=== PATIENT | male | born 1990 | race Caucasian/White ===

== ENCOUNTER 2017-06-19 09:44 | Inpatient (IN) | payer OTHER ==
[2017-06-19 11:24] VITALS: BMI 22.4
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
[2017-06-19] MEDS ORDERED: LOPERAMIDE HCL 2 MG CAPSULE PO PRN (13:01)
[2017-06-19] MEDS ORDERED: MAGNESIUM CITRATE 300 ML BOTTLE PO PRN (13:01)
[2017-06-19] MEDS ORDERED: MENTHOL/PHENOL 1 EACH UD MM PRN (13:01)
[2017-06-19] MEDS ORDERED: guaiFENesin/D-METHORPHAN HB 10 ML UNIT-DOSE CUPS PO PRN (13:01)
[2017-06-19] MEDS ORDERED: hydrOXYzine PAMOATE 25 MG CAPSULE (FP) PO PRN (13:01)
[2017-06-19] MEDS ORDERED: MAG HYDROX/AL HYDROX/SIMETH 30 ML UNIT-DOSE CUP PO PRN (13:01)
[2017-06-19] MEDS ORDERED: P-EPHED 60MG/TRIPROLIDI 2.5MG TABLET PO PRN (13:01)
[2017-06-19] MEDS ORDERED: ACETAMINOPHEN 325 MG TABLET (FP) PO PRN (13:01)
[2017-06-19] MEDS ORDERED: IBUPROFEN 400 MG TABLET (FP) PO PRN (13:01)
[2017-06-19] MEDS ORDERED: MAGNESIUM HYDROX 2400MG/30ML ORAL SUSPENSION 30 ML CUP PO PRN (13:01)
[2017-06-19] MEDS ORDERED: METHADONE HCL 10 MG TABLET (FOR DETOX USE ONLY) PO ONE ×2 (13:59→23:00)
[2017-06-19] MEDS: diazePAM 5 MG TABLET PO PRN ×2 (15:16→22:06)
[2017-06-19 19:47] LABS: MCH 29.6 pg (25.7-33.7); MCHC 33.8 g/dl (32.0-35.9); MEAN CELL VOLUME 87.7 fl (80-96); MEAN PLT VOLUME 10.2 fl (7.5-11.1); PLATELET COUNT 230 K/MM3 (134-434); RDW 12.8 % (11.9-15.9); WHITE BLOOD COUNT 7.4 K/mm3 (4.0-10.0)
[2017-06-19 20:12] LABS: ALBUMIN 4.1 g/dl (3.4-5.0); ANION GAP 7 (8-16); CALCIUM 9.4 mg/dL (8.5-10.1); CO2 31 mmol/L (21-32); GLUCOSE,RANDOM 98 mg/dL (74-106); SGPT/ALT 25 U/L (12-78)
[2017-06-19 20:15] LABS: ALK PHOS 90 U/L (45-117); BILIRUBIN,TOTAL 0.5 mg/dL (0.2-1.0); SGOT/AST 18 U/L (15-37); TOT PROT 7.8 g/dl (6.4-8.2)
[2017-06-19 21:40] LABS: SICKLE CELL SCREEN NEGATIVE (NEGATIVE)
[2017-06-19] MEDS: THIAMINE HCL 100 MG TABLET (FP) PO SCH (22:05)
[2017-06-19] MEDS: diphenhydrAMINE HCL 50 MG CAPSULE PO PRN (22:06)
[2017-06-19 23:26] LABS: HIV 1 & 2 AB NEGATIVE; HIV 1 AGp24 NEGATIVE
[2017-06-20 01:34] LABS: URINE APPEARANCE SLCLOUDY; URINE BILIRUBIN NEGATIVE (NEGATIVE); URINE BLOOD NEGATIVE (NEGATIVE); URINE COLOR YELLOW; URINE GLUCOSE (UA) NEGATIVE (NEGATIVE); URINE KETONE NEGATIVE (NEGATIVE); URINE LEUK ESTERASE NEGATIVE (NEGATIVE); URINE NITRITE NEGATIVE (NEGATIVE); URINE PROTEIN NEGATIVE (NEGATIVE); URINE UROBILINOGEN NEGATIVE mg/dL (0.2-1.0)
[2017-06-20] MEDS: diazePAM 5 MG TABLET PO PRN ×2 (06:00→22:35)
--- NOTE | 2017-06-20 09:53 | EKG ---
Test Reason : Blood Pressure : / mmHG Vent. Rate : 070 BPM Atrial Rate : 070 BPM P-R Int : 124 ms QRS Dur : 106 ms QT Int : 416 ms P-R-T Axes : 000 041 055 degrees QTc Int : 449 ms NORMAL SINUS RHYTHM INCOMPLETE RIGHT BUNDLE BRANCH BLOCK BORDERLINE ECG NO PREVIOUS ECGS AVAILABLE Confirmed by HERMELINDA WEIR, PATSY ([id number]) on 06/20/2017 9:53:15 AM Referred By: Confirmed By:PATSY SHEN MD
[2017-06-20] MEDS ORDERED: METHADONE HCL 10 MG TABLET (FOR DETOX USE ONLY) PO ONE (10:00)
[2017-06-20] MEDS: PRENATAL VITAMINS W/ FOLIC ACID TABLET (FP) PO SCH (10:22)
--- NOTE | 2017-06-20 13:17 | PN ---
BHS COWS - Scale Resting Pulse: 2= [place] 101-120 Sweatin= Chills/Flushing Restless Observation: 1= Difficult to Sit Still Pupil Size: 0= Normal to Room Light Bone or Joint Aches: 1= Mild Discomfort Runny Nose/ Eye Tearin= Nasal Congestion GI Upset > 30mins: 1= Stomach Cramp Tremor Observation of Outstretched Hands: 2= Slight Tremor Visible Yawning Observation: 1= 1-2x During Session Anxiety or Irritability: 2=Irritable/Anxious Goose Flesh Skin: 3=Piloerection COWS Score: 15 BHS Progress Note (SOAP) Subjective: Tremors, Stomach Cramping, Interrupted Sleep, Sweating. Objective: PT. A & O X 3, OBSERVED AMBULATING ON UNIT. NO ACUTE DISTRESS. PT. DENIES CHEST PAIN. 06/20/17 13:15 Vital Signs Temperature 97.5 F L 06/20/17 09:24 Pulse Rate 72 06/20/17 09:24 Respiratory Rate 16 06/20/17 09:24 Blood Pressure 126/91 06/20/17 09:24 O2 Sat by Pulse Oximetry (%) Laboratory Tests 06/19/17 06/19/17 06/19/17 12:00 12:00 12:00 WBC 7.4 RBC 4.97 Hgb 14.7 Hct 43.6 MCV 87.7 MCH 29.6 MCHC 33.8 RDW 12.8 Plt Count 230 MPV 10.2 Sickle Cell Screen Negative Sodium 140 Potassium 3.9 Chloride 102 Carbon Dioxide 31 Anion Gap 7 L BUN 8 Creatinine 1.0 Creat Clearance w eGFR > 60 Random Glucose 98 Calcium 9.4 Total Bilirubin 0.5 AST 18 ALT 25 Alkaline Phosphatase 90 Total Protein 7.8 Albumin 4.1 Urine Color Urine Appearance Urine pH Ur Specific [place] Urine Protein Urine Glucose (UA) Urine Ketones Urine Blood Urine Nitrite Urine Bilirubin Urine Urobilinogen RPR Titer HIV 1&2 Antibody Screen Negative HIV P24 Antigen Negative 06/19/17 06/19/17 12:00 23:10 WBC RBC Hgb Hct MCV MCH MCHC RDW Plt Count MPV Sickle Cell Screen Sodium Potassium Chloride Carbon Dioxide Anion Gap BUN Creatinine Creat Clearance w eGFR Random Glucose Calcium Total Bilirubin AST ALT Alkaline Phosphatase Total Protein Albumin Urine Color Yellow Urine Appearance Slcloudy Urine pH 5.0 Ur Specific [place] 1.025 Urine Protein Negative Urine Glucose (UA) Negative Urine Ketones Negative Urine Blood Negative Urine Nitrite Negative Urine Bilirubin Negative Urine Urobilinogen Negative RPR Titer Nonreactive HIV 1&2 Antibody Screen HIV P24 Antigen LABS NOTED. Assessment: 06/20/17 13:15 WITHDRAWAL SYMPTOMS. Plan: CONTINUED DETOX.
[2017-06-20] MEDS: diphenhydrAMINE HCL 50 MG CAPSULE PO PRN (22:35)
[2017-06-20] MEDS: THIAMINE HCL 100 MG TABLET (FP) PO SCH (22:35)
[2017-06-21] MEDS: diazePAM 5 MG TABLET PO PRN ×2 (05:37→22:42)
[2017-06-21] MEDS ORDERED: METHADONE HCL 5 MG TABLET (FOR DETOX USE ONLY) PO ONE (10:00)
[2017-06-21] MEDS: PRENATAL VITAMINS W/ FOLIC ACID TABLET (FP) PO SCH (10:34)
[2017-06-21] MEDS: OLANZapine 5 MG TABLET PO SCH (10:35)
--- NOTE | 2017-06-21 12:04 | PN ---
BHS COWS - Scale Resting Pulse: 1= [place] 81-100 Sweatin= Chills/Flushing Restless Observation: 3= Extraneous Movement Pupil Size: 2= Moderately Dilated Bone or Joint Aches: 4=Acute Joint/Muscle Pain Runny Nose/ Eye Tearin= Nasal Congestion GI Upset > 30mins: 1= Stomach Cramp Tremor Observation of Outstretched Hands: 1= Tremor [place], Not Seen Yawning Observation: 1= 1-2x During Session Anxiety or Irritability: 2=Irritable/Anxious Goose Flesh Skin: 0=Smooth Skin COWS Score: 17 BHS Progress Note (SOAP) Subjective: ANXIETY,SWEATS,INTERMITTENT SLEEP. Objective: 06/21/17 12:03 Vital Signs Temperature 98.4 F 06/21/17 09:21 Pulse Rate 87 06/21/17 09:21 Respiratory Rate 18 06/21/17 09:21 Blood Pressure 123/68 06/21/17 09:21 O2 Sat by Pulse Oximetry (%) Laboratory Last Values WBC 7.4 K/mm3 (4.0-10.0) 06/19/17 12:00 RBC 4.97 M/mm3 (4.00-5.60) 06/19/17 12:00 Hgb 14.7 GM/dL (11.7-16.9) 06/19/17 12:00 Hct 43.6 % (35.4-49) 06/19/17 12:00 MCV 87.7 fl (80-96) 06/19/17 12:00 MCH 29.6 pg (25.7-33.7) 06/19/17 12:00 MCHC 33.8 g/dl (32.0-35.9) 06/19/17 12:00 RDW 12.8 % (11.9-15.9) 06/19/17 12:00 Plt Count 230 K/MM3 (134-434) 06/19/17 12:00 MPV 10.2 fl (7.5-11.1) 06/19/17 12:00 Sickle Cell Screen Negative (NEGATIVE) 06/19/17 12:00 Sodium 140 mmol/L (136-145) 06/19/17 12:00 Potassium 3.9 mmol/L (3.5-5.1) 06/19/17 12:00 Chloride 102 mmol/L (98-107) 06/19/17 12:00 Carbon Dioxide 31 mmol/L (21-32) 06/19/17 12:00 Anion Gap 7 (8-16) L 06/19/17 12:00 BUN 8 mg/dL (7-18) 06/19/17 12:00 Creatinine 1.0 mg/dL (0.7-1.3) 06/19/17 12:00 Creat Clearance w eGFR > 60 (>60) 06/19/17 12:00 Random Glucose 98 mg/dL (74-106) 06/19/17 12:00 Calcium 9.4 mg/dL (8.5-10.1) 06/19/17 12:00 Total Bilirubin 0.5 mg/dL (0.2-1.0) 06/19/17 12:00 AST 18 U/L (15-37) 06/19/17 12:00 ALT 25 U/L (12-78) 06/19/17 12:00 Alkaline Phosphatase 90 U/L (45-117) 06/19/17 12:00 Total Protein 7.8 g/dl (6.4-8.2) 06/19/17 12:00 Albumin 4.1 g/dl (3.4-5.0) 06/19/17 12:00 Urine Color Yellow 06/19/17 23:10 Urine Appearance Slcloudy 06/19/17 23:10 Urine pH 5.0 (5.0-8.0) 06/19/17 23:10 Ur Specific [place] 1.025 (1.005-1.025) 06/19/17 23:10 Urine Protein Negative (NEGATIVE) 06/19/17 23:10 Urine Glucose (UA) Negative (NEGATIVE) 06/19/17 23:10 Urine Ketones Negative (NEGATIVE) 06/19/17 23:10 Urine Blood Negative (NEGATIVE) 06/19/17 23:10 Urine Nitrite Negative (NEGATIVE) 06/19/17 23:10 Urine Bilirubin Negative (NEGATIVE) 06/19/17 23:10 Urine Urobilinogen Negative mg/dL (0.2-1.0) 06/19/17 23:10 RPR Titer Nonreactive (NONREACTIVE) 06/19/17 12:00 HIV 1&2 Antibody Screen Negative 06/19/17 12:00 HIV P24 Antigen Negative 06/19/17 12:00 Assessment: 06/21/17 12:03 WITHDRAWAL SX Plan: CONTINUE DETOX
[2017-06-21] MEDS: THIAMINE HCL 100 MG TABLET (FP) PO SCH (22:42)
[2017-06-21] MEDS: diphenhydrAMINE HCL 50 MG CAPSULE PO PRN (22:42)
[2017-06-22] MEDS: diazePAM 5 MG TABLET PO PRN (06:01)
[2017-06-22] MEDS ORDERED: METHADONE HCL 5 MG TABLET (FOR DETOX USE ONLY) PO ONE (10:00)
[2017-06-22] MEDS: PRENATAL VITAMINS W/ FOLIC ACID TABLET (FP) PO SCH (10:51)
[2017-06-22] MEDS: OLANZapine 5 MG TABLET PO SCH (10:51)
--- NOTE | 2017-06-22 14:53 | PN ---
BHS Progress Note (SOAP) Subjective: Tremors. Objective: PT. A & O X 3, OBSERVED AMBULATING ON UNIT. NO ACUTE DISTRESS. 06/22/17 14:52 Vital Signs Temperature 97.7 F 06/22/17 13:19 Pulse Rate 64 06/22/17 13:19 Respiratory Rate 18 06/22/17 13:19 Blood Pressure 123/76 06/22/17 13:19 O2 Sat by Pulse Oximetry (%) Laboratory Tests 06/19/17 06/19/17 06/19/17 12:00 12:00 12:00 WBC 7.4 RBC 4.97 Hgb 14.7 Hct 43.6 MCV 87.7 MCH 29.6 MCHC 33.8 RDW 12.8 Plt Count 230 MPV 10.2 Sickle Cell Screen Negative Sodium 140 Potassium 3.9 Chloride 102 Carbon Dioxide 31 Anion Gap 7 L BUN 8 Creatinine 1.0 Creat Clearance w eGFR > 60 Random Glucose 98 Calcium 9.4 Total Bilirubin 0.5 AST 18 ALT 25 Alkaline Phosphatase 90 Total Protein 7.8 Albumin 4.1 Urine Color Urine Appearance Urine pH Ur Specific [place] Urine Protein Urine Glucose (UA) Urine Ketones Urine Blood Urine Nitrite Urine Bilirubin Urine Urobilinogen RPR Titer HIV 1&2 Antibody Screen Negative HIV P24 Antigen Negative 06/19/17 06/19/17 12:00 23:10 WBC RBC Hgb Hct MCV MCH MCHC RDW Plt Count MPV Sickle Cell Screen Sodium Potassium Chloride Carbon Dioxide Anion Gap BUN Creatinine Creat Clearance w eGFR Random Glucose Calcium Total Bilirubin AST ALT Alkaline Phosphatase Total Protein Albumin Urine Color Yellow Urine Appearance Slcloudy Urine pH 5.0 Ur Specific [place] 1.025 Urine Protein Negative Urine Glucose (UA) Negative Urine Ketones Negative Urine Blood Negative Urine Nitrite Negative Urine Bilirubin Negative Urine Urobilinogen Negative RPR Titer Nonreactive HIV 1&2 Antibody Screen HIV P24 Antigen LABS NOTED. Assessment: 06/22/17 14:52 WITHDRAWAL SYMPTOMS. Plan: CONTINUE DETOX.
[2017-06-22] MEDS: diphenhydrAMINE HCL 50 MG CAPSULE PO PRN (22:27)
[2017-06-22] MEDS: THIAMINE HCL 100 MG TABLET (FP) PO SCH (22:27)
[2017-06-23] MEDS ORDERED: METHADONE HCL 10 MG TABLET (FOR DETOX USE ONLY) PO ONE (10:00)
[2017-06-23] MEDS: PRENATAL VITAMINS W/ FOLIC ACID TABLET (FP) PO SCH (10:48)
[2017-06-23] MEDS: OLANZapine 5 MG TABLET PO SCH (10:49)
[2017-06-23 10:59] VITALS: BP 136/75; PULSE 95; TEMP 97.6
--- NOTE | 2017-06-23 22:03 | DS ---
[facility] Detox Discharge Summary Admission Date: 06/19/17 Discharge Date: 06/23/17 - History Present History: Cannabis Dependence, Cocaine Dependence, Opioid Dependence Additional Comments: PATIENT ELECTING TO GO HOME TO RETURN TO WORK. PATIENT ADVISED TO CONSIDER LOCAL OUTPATIENT 12-STEP / NA SUPPORT GROUP PROGRAMS FORM AFTERCARE. PATIENT WAS DISCHARGED FROM UNIT IN STABLE MEDICAL CONDITION. Pertinent Past History: History of Non-Hodgkins Lymphoma (Treated with Chemotherapy). - Physical Exam Results Vital Signs: Vital Signs Temperature 97.6 F 06/23/17 10:58 Pulse Rate 95 H 06/23/17 10:58 Respiratory Rate 20 06/23/17 10:58 Blood Pressure 136/75 06/23/17 10:58 O2 Sat by Pulse Oximetry (%) Pertinent Admission Physical Exam Findings: WITHDRAWAL SYMPTOMS. Laboratory Tests 06/19/17 06/19/17 06/19/17 12:00 12:00 12:00 WBC 7.4 RBC 4.97 Hgb 14.7 Hct 43.6 MCV 87.7 MCH 29.6 MCHC 33.8 RDW 12.8 Plt Count 230 MPV 10.2 Sickle Cell Screen Negative Sodium 140 Potassium 3.9 Chloride 102 Carbon Dioxide 31 Anion Gap 7 L BUN 8 Creatinine 1.0 Creat Clearance w eGFR > 60 Random Glucose 98 Calcium 9.4 Total Bilirubin 0.5 AST 18 ALT 25 Alkaline Phosphatase 90 Total Protein 7.8 Albumin 4.1 Urine Color Urine Appearance Urine pH Ur Specific [place] Urine Protein Urine Glucose (UA) Urine Ketones Urine Blood Urine Nitrite Urine Bilirubin Urine Urobilinogen RPR Titer HIV 1&2 Antibody Screen Negative HIV P24 Antigen Negative 06/19/17 06/19/17 12:00 23:10 WBC RBC Hgb Hct MCV MCH MCHC RDW Plt Count MPV Sickle Cell Screen Sodium Potassium Chloride Carbon Dioxide Anion Gap BUN Creatinine Creat Clearance w eGFR Random Glucose Calcium Total Bilirubin AST ALT Alkaline Phosphatase Total Protein Albumin Urine Color Yellow Urine Appearance Slcloudy Urine pH 5.0 Ur Specific [place] 1.025 Urine Protein Negative Urine Glucose (UA) Negative Urine Ketones Negative Urine Blood Negative Urine Nitrite Negative Urine Bilirubin Negative Urine Urobilinogen Negative RPR Titer Nonreactive HIV 1&2 Antibody Screen HIV P24 Antigen LABS NOTED. - Treatment Hospital Course: Detox Protocol Followed, Detoxed Safely, Responded well, Discharged Condition Good Patient has Accepted a Rehab Referral to: NO. PT. ADVISED TO FOLLOW-UP WITH LOCAL 12-STEP/NA PROGRAMS FOR AFTERCARE. - Medication Discharge Medications: Ambulatory Orders Olanzapine [Zyprexa -] 5 mg PO DAILY #30 tablet 06/21/17 - Diagnosis (1) Cannabis dependence, uncomplicated Status: Acute (2) Cocaine dependence, uncomplicated Status: Acute (3) Opioid dependence with withdrawal Status: Acute (4) History of Hodgkin's lymphoma Status: Chronic - AMA Did Patient Leave Against Medical Advice: No
[2017-06-24] MEDS ORDERED: METHADONE HCL 5 MG TABLET (FOR DETOX USE ONLY) PO ONE (06:00)
== END 2017-06-23 12:10 | disposition home or self-care (01) | DRG 773 ==
LOC: YASAS 09:44 → Y3N 13:48
PROVIDERS: ADMIT Internal Medicine; ATTEND Internal Medicine
PROC: HZ2ZZZZ Detoxification Services for Substance Abuse Treatment (ICD-10-PCS; principal; 2017-06-19)
DX: F11.23 Opioid dependence with withdrawal (principal); F14.20 Cocaine dependence, uncomplicated; F12.20 Cannabis dependence, uncomplicated; Z85.71 Personal history of Hodgkin lymphoma
CPT/HCPCS: 36415; 80053; 81003; 85027; 85660; 86593; 87389; 93005; 93010

== ENCOUNTER 2017-10-05 10:18 | Inpatient (IN) | payer OTHER ==
[2017-10-05 11:24] VITALS: BP 126/65; PULSE 70; TEMP 98.8; BMI 22.3
--- NOTE | 2017-10-05 14:45 | HP ---
COWS - Scale Resting Pulse: 0= [place] 80 or Below Sweatin= Chills/Flushing Restless Observation: 3= Extraneous Movement Pupil Size: 2= Moderately Dilated Bone or Joint Aches: 2= Severe Diffuse Aches Runny Nose/ Eye Tearin= Runny Nose/Eyes GI Upset > 30mins: 3= Vomiting/Diarrhea Tremor Observation: 2= Slight Tremor Visible Yawning Observation: 2= >3x During Session Anxiety or Irritability: 2=Irritable/Anxious Goose Flesh Skin: 0=Smooth Skin COWS Score: 19 Admission ROS S - HPI Chief Complaint: i need help to stop using heroin,cocaine,marijuana,ecstasy Allergies/Adverse Reactions: Allergies Allergy/AdvReac Type Severity Reaction Status Date / Time No Known Drug Allergies Allergy Verified 10/05/17 14:36 History of Present Illness: this 27 years old male with percocet,cocaine,marijuana,ecstasy,seeking detox, withdrawal symptom,last treatment 06/19/17 to 06/23/17 sj history of hodgekin's lymphoma treated in 2010 on remission weight loss n significant period of sobriety - Ebola screening Have you traveled outside of the country in the last 21 days: No Have you had contact with anyone from an Ebola affected area: No Have you been sick,other than usual withdrawal symptoms: No - Review of Systems Constitutional: Loss of Appetite, Malaise, Night Sweats, Changes in sleep, Weakness, Unintentional Wgt. Loss EENT: reports: Tearing, Nose Congestion Respiratory: reports: No Symptoms reported Cardiac: reports: No Symptoms Reported GI: reports: Diarrhea, Nausea, Vomiting, Abdominal cramping : reports: No Symptoms Reported Musculoskeletal: reports: Back Pain, Muscle Pain Integumentary: reports: Dryness Neuro: reports: Headache, Tremors Endocrine: reports: No Symptoms Reported Hematology: reports: No Symptoms Reported, Other (remission of hodgekinn;s lymphoma) Psychiatric: reports: No Sypmtoms Reported Other Systems: Reviewed and Negative Patient History - Patient Medical History Hx Anemia: No Hx Asthma: No Hx Chronic Obstructive Pulmonary Disease (COPD): No Hx Cancer: No Hx Cardiac Disorders: No Hx Hypertension: No Hx Hypercholesterolemia: No HX Cerebrovascular Accident: No Hx Seizures: No Hx Diabetes: No Hx Gastrointestinal Disorders: No Hx Genitourinary Disorders: No Hx Sexually Transmitted Disorders: No Hx Renal Disease (ESRD): No Hx Thyroid Disease: No Hx Human Immunodeficiency Virus (HIV): No (NEGATIVE HX in 916) Hx Hepatitis C: No Hx Depression: No Hx Suicide Attempt: No (DENIES) Hx Bipolar Disorder: No Hx Schizophrenia: No Other Medical History: no suicidal,no homicidal,histry of hodgekin's lymphoma on remission - Patient Surgical History Past Surgical History: No Hx Neurologic Surgery: No Hx Cataract Extraction: No Hx Cardiac Surgery: No Hx Lung Surgery: No Hx Breast Surgery: No Hx Breast Biopsy: No Hx Abdominal Surgery: No Hx Appendectomy: No Hx Cholecystectomy: No Hx Genitourinary Surgery: No Hx Orthopedic Surgery: No Anesthesia Reaction: No - PPD History Date: 06/21/17 - Smoking Cessation Smoking history: Never smoked Have you smoked in the past 12 months: No Hx Chewing Tobacco Use: No - Substance & Tx. History Hx Alcohol Use: No Hx Substance Use: Yes Substance Use Type: Cocaine, Opiates, Tranquilizers Hx Substance Use Treatment: Yes ([facility] 06/19/17 to 06/23/17) - Substances Abused Cocaine Route: Inhalation Frequency: Daily Amount used: 1/2 GRAM Age of first use: 26 Date of Last Use: 10/03/17 Marijuana/Hashish Route: Smoking Frequency: 1-2 times per week Amount used: 1/2 GRAM Age of first use: 24 Date of Last Use: 10/01/17 Ectasy Route: Oral Frequency: 1-3 times last 30 days Amount used: 1 PILL Age of first use: 26 Date of Last Use: 09/28/17 PERCOCET Route: Oral Frequency: Daily Amount used: 10 (10MG) PILLS Age of first use: 24 Date of Last Use: 10/05/17 Family Disease History - Family Disease History Family History: Denies Admission Physical Exam BHS - Vital Signs Vital Signs: Vital Signs - 24 hr 10/05/17 11:22 Temperature 98.8 F Pulse Rate 70 Respiratory 18 Rate Blood Pressure 126/65 - Physical General Appearance: Yes: Moderate Distress, Tremorous, Irritable, Sweating, Anxious HEENTM: Yes: Normal ENT Inspection, BRAIN, Pharynx Normal Respiratory: Yes: Lungs Clear, Normal Breath Sounds, No Respiratory Distress Neck: Yes: Within Normal Limits, Supple, Trachea in good position Breast: Yes: Within Normal Limits Cardiology: Yes: Within Normal Limits, Regular Rhythm, Regular Rate, S1, S2 Abdominal: Yes: Within Normal Limits, Normal Bowel Sounds, Non Tender, Flat, Soft Genitourinary: Yes: Within Normal Limits Back: Yes: Normal Inspection, Muscle Spasm Musculoskeletal: Yes: full range of Motion, Back pain, Joint Stiffness, Muscle Pain Extremities: Yes: Within Normal Limits, Normal Range of Motion, Tremors 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, Fully Oriented, Alert, Motor Strength 5/5 Integumentary: Yes: Dry Lymphatic: Yes: Within Normal Limits - Diagnostic (1) Cannabis dependence, uncomplicated Current Visit: No Status: Acute (2) Cocaine dependence, uncomplicated Current Visit: No Status: Acute (3) Opioid dependence with withdrawal Current Visit: No Status: Acute (4) History of Hodgkin's lymphoma Current Visit: No Status: Chronic Cleared for Admission [facility] - Detox or Rehab [facility] Level of Care: Medically Managed Detox Regimen/Protocol: Methadone [facility] Breath Alcohol Content Breath Alcohol Content: 0 Urine Drug Screen - Results Drug Screen Negative: No Urine Drug Screen Results: THC-Marijuana, TARSHA-Cocaine, OPI-Opiates, AMP- Amphetamines, MET-Methamphetamine, MDMA-Ecstasy, BZO-Benzodiazepines, MTD- Methadone, OXY-Oxycodone
[2017-10-05] MEDS ORDERED: guaiFENesin/D-METHORPHAN HB 10 ML UNIT-DOSE CUPS PO PRN (15:04)
[2017-10-05] MEDS ORDERED: P-EPHED 60MG/TRIPROLIDI 2.5MG TABLET PO PRN (15:04)
[2017-10-05] MEDS ORDERED: LOPERAMIDE HCL 2 MG CAPSULE PO PRN (15:04)
[2017-10-05] MEDS ORDERED: hydrOXYzine PAMOATE 25 MG CAPSULE (FP) PO PRN (15:04)
[2017-10-05] MEDS ORDERED: MENTHOL/PHENOL 1 EACH UD MM PRN (15:04)
[2017-10-05] MEDS ORDERED: ACETAMINOPHEN 325 MG TABLET (FP) PO PRN (15:04)
[2017-10-05] MEDS ORDERED: IBUPROFEN 400 MG TABLET (FP) PO PRN (15:04)
[2017-10-05] MEDS ORDERED: MAGNESIUM CITRATE 300 ML BOTTLE PO PRN (15:04)
[2017-10-05] MEDS ORDERED: MAGNESIUM HYDROX 2400MG/30ML ORAL SUSPENSION 30 ML CUP PO PRN (15:04)
[2017-10-05] MEDS ORDERED: diazePAM 5 MG TABLET PO PRN (15:04)
[2017-10-05] MEDS ORDERED: MAG HYDROX/AL HYDROX/SIMETH 30 ML UNIT-DOSE CUP PO PRN (15:04)
[2017-10-05] MEDS ORDERED: METHADONE HCL 10 MG TABLET (FOR DETOX USE ONLY) PO ONE ×2 (15:29→23:00)
[2017-10-05] MEDS ORDERED: THIAMINE HCL 100 MG TABLET (FP) PO SCH (22:00)
[2017-10-05 23:12] LABS: URINE APPEARANCE SLCLOUDY; URINE BILIRUBIN NEGATIVE (NEGATIVE); URINE BLOOD NEGATIVE (NEGATIVE); URINE COLOR DKYELLOW; URINE GLUCOSE (UA) NEGATIVE (NEGATIVE); URINE KETONE NEGATIVE (NEGATIVE); URINE LEUK ESTERASE NEGATIVE (NEGATIVE); URINE NITRITE NEGATIVE (NEGATIVE); URINE PROTEIN NEGATIVE (NEGATIVE); URINE UROBILINOGEN NEGATIVE mg/dL (0.2-1.0)
[2017-10-06] MEDS ORDERED: METHADONE HCL 10 MG TABLET (FOR DETOX USE ONLY) PO ONE (10:00)
[2017-10-06] MEDS ORDERED: PRENATAL VITAMINS W/ FOLIC ACID TABLET (FP) PO SCH (10:00)
[2017-10-06 10:41] LABS: HEMOGLOBIN 13.5 GM/dL (11.7-16.9); MEAN CELL VOLUME 87.9 fl (80-96); MEAN PLT VOLUME 10.4 fl (7.5-11.1); PLATELET COUNT 140 K/MM3 (134-434); RBC 4.67 M/mm3 (4.00-5.60); RDW 12.9 % (11.9-15.9); WHITE BLOOD COUNT 5.4 K/mm3 (4.0-10.0)
[2017-10-06 10:46] LABS: CHLORIDE 104 mmol/L (98-107); POTASSIUM 3.8 mmol/L (3.5-5.1); SODIUM 141 mmol/L (136-145)
[2017-10-06 10:54] LABS: ALBUMIN 3.8 g/dl (3.4-5.0); ALK PHOS 80 U/L (45-117); ANION GAP 5 (8-16); BILIRUBIN,TOTAL 0.3 mg/dL (0.2-1.0); BLOOD UREA NITROGEN 11 mg/dL (7-18); CALCIUM 8.3 mg/dL (8.5-10.1); CO2 32 mmol/L (21-32); CREATININE 0.9 mg/dL (0.7-1.3); GLUCOSE,RANDOM 85 mg/dL (74-106); SGOT/AST 18 U/L (15-37); SGPT/ALT 26 U/L (12-78)
[2017-10-07] MEDS ORDERED: METHADONE HCL 5 MG TABLET (FOR DETOX USE ONLY) PO ONE (10:00)
[2017-10-08] MEDS ORDERED: METHADONE HCL 5 MG TABLET (FOR DETOX USE ONLY) PO ONE (10:00)
[2017-10-09] MEDS ORDERED: METHADONE HCL 10 MG TABLET (FOR DETOX USE ONLY) PO ONE (10:00)
[2017-10-10] MEDS ORDERED: METHADONE HCL 5 MG TABLET (FOR DETOX USE ONLY) PO ONE (06:00)
== END 2017-10-06 06:39 | disposition home or self-care (01) | DRG 773 ==
LOC: YASAS 10:18 → Y3N 15:22
PROVIDERS: ADMIT Internal Medicine; ATTEND Internal Medicine
PROC: HZ2ZZZZ Detoxification Services for Substance Abuse Treatment (ICD-10-PCS; principal; 2017-10-05)
DX: F11.23 Opioid dependence with withdrawal (principal); F14.20 Cocaine dependence, uncomplicated; F12.20 Cannabis dependence, uncomplicated; Z85.72 Personal history of non-Hodgkin lymphomas
CPT/HCPCS: 36415; 80053; 81003; 85027; 86593

== ENCOUNTER 2017-10-07 08:30 | Inpatient (IN) | payer OTHER ==
--- NOTE | 2017-10-07 08:57 | HP ---
COWS - Scale Resting Pulse: 2= [place] 101-120 Sweatin= Chills/Flushing Restless Observation: 3= Extraneous Movement Pupil Size: 2= Moderately Dilated Bone or Joint Aches: 2= Severe Diffuse Aches Runny Nose/ Eye Tearin= Runny Nose/Eyes GI Upset > 30mins: 3= Vomiting/Diarrhea Tremor Observation: 2= Slight Tremor Visible Yawning Observation: 2= >3x During Session Anxiety or Irritability: 2=Irritable/Anxious Goose Flesh Skin: 0=Smooth Skin COWS Score: 21 Admission ROS BHS - HPI Chief Complaint: i need help to stop using percocet,cocaine and marijuana Allergies/Adverse Reactions: Allergies Allergy/AdvReac Type Severity Reaction Status Date / Time No Known Drug Allergies Allergy Verified 10/07/17 09:09 History of Present Illness: this 27 years old male with percocet,cocaine,marijuana dependence,seeking detox, withdrawal symptom,last detox [facility] 06/19/17 to 06/23/17 remission for hodgekin's lymphoma in 2010 treated with chemotherapy on remisssion no significant period of sobriety iddm 2017 - Ebola screening Have you traveled outside of the country in the last 21 days: No - Review of Systems Constitutional: Loss of Appetite, Malaise, Night Sweats, Changes in sleep, Weakness EENT: reports: Tearing, Nose Congestion Respiratory: reports: No Symptoms reported Cardiac: reports: Palpitations GI: reports: Nausea, Vomiting, Abdominal cramping : reports: No Symptoms Reported Musculoskeletal: reports: Back Pain, Joint Pain, Muscle Pain, Joint Stiffness Neuro: reports: Headache, Tremors Endocrine: reports: No Symptoms Reported Hematology: reports: No Symptoms Reported, Other (remission of hpdgekin's lymphoma) Psychiatric: reports: No Sypmtoms Reported Patient History - Patient Medical History Hx Anemia: No Hx Asthma: No Hx Chronic Obstructive Pulmonary Disease (COPD): No Hx Cancer: No Hx Cardiac Disorders: No Hx Hypertension: No Hx Hypercholesterolemia: No HX Cerebrovascular Accident: No Hx Seizures: No Hx Diabetes: No Hx Gastrointestinal Disorders: No Hx Genitourinary Disorders: No Hx Sexually Transmitted Disorders: No Hx Renal Disease (ESRD): No Hx Thyroid Disease: No Hx Human Immunodeficiency Virus (HIV): No (NEGATIVE HX in 06/10) Hx Hepatitis C: No Hx Depression: No Hx Suicide Attempt: No (DENIES) Hx Bipolar Disorder: No Hx Schizophrenia: No Other Medical History: no suicidal,no homicidal,remission of hodgekin's lymphoma - Patient Surgical History Past Surgical History: No Hx Neurologic Surgery: No Hx Cataract Extraction: No Hx Cardiac Surgery: No Hx Lung Surgery: No Hx Breast Surgery: No Hx Breast Biopsy: No Hx Abdominal Surgery: No Hx Appendectomy: No Hx Cholecystectomy: No Hx Genitourinary Surgery: No Hx Section: No Hx Orthopedic Surgery: No Other Surgical History: R hand tendon repair in 2007 Anesthesia Reaction: No - PPD History Previous Implant?: Yes Date: 06/21/17 Results: 0 mm PPD to be Administered?: No - Smoking Cessation Smoking history: Never smoked Have you smoked in the past 12 months: No Hx Chewing Tobacco Use: No - Substance & Tx. History Hx Alcohol Use: No Hx Substance Use: Yes Substance Use Type: Cocaine, Marijuana, Opiates Hx Substance Use Treatment: Yes ([facility] 06/19/17 to 06/23/17) - Substances Abused percocet Route: Oral Frequency: Daily Amount used: 10 of 10 mgs Age of first use: 24 Date of Last Use: 10/07/17 Cocaine Route: Inhalation Amount used: 1/2 gram Age of first use: 26 Date of Last Use: 10/05/17 Marijuana/Hashish Route: Smoking Frequency: 3-6 times per week Amount used: 1/2 gram Age of first use: 24 Date of Last Use: 10/05/17 Family Disease History - Family Disease History Family History: Denies Admission Physical Exam [facility] - Vital Signs Vital Signs: Vital Signs Temperature 99.4 F 10/07/17 08:55 Pulse Rate 101 H 10/07/17 08:55 Respiratory Rate 20 10/07/17 08:55 Blood Pressure 157/87 10/07/17 08:55 O2 Sat by Pulse Oximetry (%) - Physical General Appearance: Yes: Moderate Distress, Tremorous, Irritable, Sweating, Anxious HEENTM: Yes: Normal ENT Inspection, BRAIN, Pharynx Normal Respiratory: Yes: Within Normal Limits, Lungs Clear, No Respiratory Distress Neck: Yes: Within Normal Limits Breast: Yes: Within Normal Limits Cardiology: Yes: Within Normal Limits, Regular Rhythm, Regular Rate, S1, S2 Abdominal: Yes: Within Normal Limits, Normal Bowel Sounds, Non Tender, Soft Genitourinary: Yes: Within Normal Limits Back: Yes: Within Normal Limits, Muscle Spasm Musculoskeletal: Yes: full range of Motion, Back pain, Muscle Pain Extremities: Yes: Tremors 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, Fully Oriented, Alert, Motor Strength 5/5 Integumentary: Yes: Dry Lymphatic: Yes: Within Normal Limits - Diagnostic (1) Cannabis dependence, uncomplicated Current Visit: No Status: Acute (2) Cocaine dependence, uncomplicated Current Visit: No Status: Acute (3) Opioid dependence with withdrawal Current Visit: No Status: Acute (4) History of Hodgkin's lymphoma Current Visit: No Status: Chronic (5) IDDM (insulin dependent diabetes mellitus) Current Visit: Yes Status: Acute Cleared for Admission [facility] - Detox or Rehab [facility] Level of Care: Medically Managed Detox Regimen/Protocol: Methadone [facility] Breath Alcohol Content Breath Alcohol Content: 0
[2017-10-07 08:58] VITALS: BMI 20.6
[2017-10-07] MEDS ORDERED: guaiFENesin/D-METHORPHAN HB 10 ML UNIT-DOSE CUPS PO PRN (09:15)
[2017-10-07] MEDS ORDERED: IBUPROFEN 400 MG TABLET (FP) PO PRN (09:15)
[2017-10-07] MEDS ORDERED: P-EPHED 60MG/TRIPROLIDI 2.5MG TABLET PO PRN (09:15)
[2017-10-07] MEDS ORDERED: ACETAMINOPHEN 325 MG TABLET (FP) PO PRN (09:15)
[2017-10-07] MEDS ORDERED: MAGNESIUM HYDROX 2400MG/30ML ORAL SUSPENSION 30 ML CUP PO PRN (09:15)
[2017-10-07] MEDS ORDERED: MENTHOL/PHENOL 1 EACH UD MM PRN (09:15)
[2017-10-07] MEDS ORDERED: MAG HYDROX/AL HYDROX/SIMETH 30 ML UNIT-DOSE CUP PO PRN (09:15)
[2017-10-07] MEDS ORDERED: METHADONE HCL 10 MG TABLET (FOR DETOX USE ONLY) PO ONE ×3 (09:15→23:00)
[2017-10-07] MEDS ORDERED: LOPERAMIDE HCL 2 MG CAPSULE PO PRN (09:15)
[2017-10-07] MEDS ORDERED: MAGNESIUM CITRATE 300 ML BOTTLE PO PRN (09:15)
[2017-10-07] MEDS: PRENATAL VITAMINS W/ FOLIC ACID TABLET (FP) PO SCH (12:13)
[2017-10-07 16:33] LABS: URINE APPEARANCE SLCLOUDY; URINE BILIRUBIN NEGATIVE (NEGATIVE); URINE BLOOD NEGATIVE (NEGATIVE); URINE COLOR AMBER; URINE GLUCOSE (UA) NEGATIVE (NEGATIVE); URINE KETONE NEGATIVE (NEGATIVE); URINE LEUK ESTERASE NEGATIVE (NEGATIVE); URINE NITRITE NEGATIVE (NEGATIVE)
[2017-10-07 16:37] LABS: URINE PROTEIN 1+ (NEGATIVE)
[2017-10-07 16:45] LABS: EPI CELLS RARE /HPF (FEW); URINE MUCUS MODERATE
[2017-10-07] MEDS: diazePAM 5 MG TABLET PO PRN (22:36)
[2017-10-07] MEDS: THIAMINE HCL 100 MG TABLET (FP) PO SCH (22:36)
[2017-10-08 09:55] LABS: HEMATOCRIT 37.1 % (35.4-49); HEMOGLOBIN 12.4 GM/dL (11.7-16.9); MCH 28.8 pg (25.7-33.7); MCHC 33.4 g/dl (32.0-35.9); MEAN CELL VOLUME 86.3 fl (80-96); MEAN PLT VOLUME 9.8 fl (7.5-11.1); PLATELET COUNT 145 K/MM3 (134-434); RDW 12.6 % (11.9-15.9); WHITE BLOOD COUNT 5.2 K/mm3 (4.0-10.0)
[2017-10-08] MEDS ORDERED: METHADONE HCL 10 MG TABLET (FOR DETOX USE ONLY) PO ONE (10:00)
[2017-10-08 10:26] LABS: CHLORIDE 107 mmol/L (98-107); POTASSIUM 3.9 mmol/L (3.5-5.1); SODIUM 142 mmol/L (136-145)
[2017-10-08 10:35] LABS: BLOOD UREA NITROGEN 8 mg/dL (7-18); CO2 29 mmol/L (21-32); CREATININE 0.7 mg/dL (0.7-1.3); GLUCOSE,RANDOM 89 mg/dL (74-106)
[2017-10-08 10:36] LABS: ALBUMIN 3.3 g/dl (3.4-5.0); ALK PHOS 66 U/L (45-117); ANION GAP 6 (8-16); BILIRUBIN,TOTAL 0.4 mg/dL (0.2-1.0); CALCIUM 7.9 mg/dL (8.5-10.1); SGOT/AST 23 U/L (15-37); SGPT/ALT 28 U/L (12-78)
--- NOTE | 2017-10-08 10:39 | EKG ---
Test Reason : Blood Pressure : / mmHG Vent. Rate : 088 BPM Atrial Rate : 088 BPM P-R Int : 142 ms QRS Dur : 104 ms QT Int : 360 ms P-R-T Axes : 083 061 072 degrees QTc Int : 435 ms NORMAL SINUS RHYTHM WITH SINUS ARRHYTHMIA NORMAL ECG WHEN COMPARED WITH ECG OF 19-JUN-2017 15:22, INCOMPLETE RIGHT BUNDLE BRANCH BLOCK IS NO LONGER PRESENT Confirmed by DAGOBERTO GRIFFIN MD ([id number]) on 10/08/2017 10:39:42 AM Referred By: Confirmed By:DAGOBERTO GRIFFIN MD
[2017-10-08] MEDS: PRENATAL VITAMINS W/ FOLIC ACID TABLET (FP) PO SCH (11:14)
--- NOTE | 2017-10-08 12:03 | PN ---
BHS COWS - Scale Resting Pulse: 1= [place] 81-100 Sweatin= Chills/Flushing Restless Observation: 3= Extraneous Movement Pupil Size: 1= Pupils >than Normal Bone or Joint Aches: 2= Severe Diffuse Aches Runny Nose/ Eye Tearin= Runny Nose/Eyes GI Upset > 30mins: 2= Nausea/Diarrhea Tremor Observation of Outstretched Hands: 2= Slight Tremor Visible Yawning Observation: 1= 1-2x During Session Anxiety or Irritability: 2=Irritable/Anxious Goose Flesh Skin: 0=Smooth Skin COWS Score: 17 S Progress Note (SOAP) Subjective: ALERT,IRRITABLE,ANXIOUS,INTERRUPTED SLEEP,TREMOR,PAIN IN THE BODY AND BACK Objective: 10/08/17 12:00 Vital Signs Temperature 96 F L 10/08/17 11:46 Pulse Rate 76 10/08/17 11:46 Respiratory Rate 18 10/08/17 11:46 Blood Pressure 122/76 10/08/17 11:46 O2 Sat by Pulse Oximetry (%) EKG NSR NO CHEST PAIN,NO SOB,NO DIZZINESS Laboratory Last Values WBC 5.2 K/mm3 (4.0-10.0) 10/08/17 07:30 RBC 4.30 M/mm3 (4.00-5.60) 10/08/17 07:30 Hgb 12.4 GM/dL (11.7-16.9) 10/08/17 07:30 Hct 37.1 % (35.4-49) 10/08/17 07:30 MCV 86.3 fl (80-96) 10/08/17 07:30 MCH 28.8 pg (25.7-33.7) 10/08/17 07:30 MCHC 33.4 g/dl (32.0-35.9) 10/08/17 07:30 RDW 12.6 % (11.9-15.9) 10/08/17 07:30 Plt Count 145 K/MM3 (134-434) 10/08/17 07:30 MPV 9.8 fl (7.5-11.1) 10/08/17 07:30 Sodium 142 mmol/L (136-145) 10/08/17 07:30 Potassium 3.9 mmol/L (3.5-5.1) 10/08/17 07:30 Chloride 107 mmol/L (98-107) 10/08/17 07:30 Carbon Dioxide 29 mmol/L (21-32) 10/08/17 07:30 Anion Gap 6 (8-16) L 10/08/17 07:30 BUN 8 mg/dL (7-18) D 10/08/17 07:30 Creatinine 0.7 mg/dL (0.7-1.3) D 10/08/17 07:30 Creat Clearance w eGFR > 60 (>60) 10/08/17 07:30 POC Glucometer 102 UNITS (80-120) 10/08/17 06:12 Random Glucose 89 mg/dL (74-106) 10/08/17 07:30 Calcium 7.9 mg/dL (8.5-10.1) L 10/08/17 07:30 Total Bilirubin 0.4 mg/dL (0.2-1.0) D 10/08/17 07:30 AST 23 U/L (15-37) D 10/08/17 07:30 ALT 28 U/L (12-78) 10/08/17 07:30 Alkaline Phosphatase 66 U/L (45-117) 10/08/17 07:30 Total Protein 6.0 g/dl (6.4-8.2) L 10/08/17 07:30 Albumin 3.3 g/dl (3.4-5.0) L 10/08/17 07:30 Urine Color Maren 10/07/17 15:37 Urine Appearance Slcloudy 10/07/17 15:37 Urine pH 5.0 (5.0-8.0) 10/07/17 15:37 Ur Specific [place] 1.034 (1.001-1.035) 10/07/17 15:37 Urine Protein 1+ (NEGATIVE) H 10/07/17 15:37 Urine Glucose (UA) Negative (NEGATIVE) 10/07/17 15:37 Urine Ketones Negative (NEGATIVE) 10/07/17 15:37 Urine Blood Negative (NEGATIVE) 10/07/17 15:37 Urine Nitrite Negative (NEGATIVE) 10/07/17 15:37 Urine Bilirubin Negative (NEGATIVE) 10/07/17 15:37 Urine Urobilinogen 2.0 mg/dL (0.2-1.0) 10/07/17 15:37 Ur Leukocyte Esterase Negative (NEGATIVE) 10/07/17 15:37 Urine WBC (Auto) 1 /hpf (3-5) 10/07/17 15:37 Urine RBC (Auto) 4 /hpf (0-3) 10/07/17 15:37 Ur Epithelial Cells Rare /HPF (FEW) 10/07/17 15:37 Urine Mucus Moderate 10/07/17 15:37 Assessment: 10/08/17 12:02 WITHDRAWAL SYNDROME Plan: CONTINUE DETOX
[2017-10-08] MEDS: diazePAM 5 MG TABLET PO PRN ×2 (18:21→22:39)
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
[2017-10-08] MEDS: THIAMINE HCL 100 MG TABLET (FP) PO SCH (22:39)
[2017-10-09] MEDS ORDERED: METHADONE HCL 5 MG TABLET (FOR DETOX USE ONLY) PO ONE (10:00)
--- NOTE | 2017-10-09 10:56 | EKG ---
Test Reason : Blood Pressure : / mmHG Vent. Rate : 062 BPM Atrial Rate : 062 BPM P-R Int : 138 ms QRS Dur : 100 ms QT Int : 432 ms P-R-T Axes : 059 066 066 degrees QTc Int : 438 ms NORMAL SINUS RHYTHM INCOMPLETE RIGHT BUNDLE BRANCH BLOCK BORDERLINE ECG WHEN COMPARED WITH ECG OF 07-OCT-2017 11:41, T WAVE INVERSION NOW EVIDENT IN ANTERIOR LEADS Confirmed by MD Emigdio, Flavio ([id number]) on 10/09/2017 10:56:32 AM Referred By: Confirmed By:Flavio Beal MD
[2017-10-09] MEDS: PRENATAL VITAMINS W/ FOLIC ACID TABLET (FP) PO SCH (11:00)
--- NOTE | 2017-10-09 13:14 | PN ---
BHS COWS - Scale Resting Pulse: 0= ID 80 or Below Sweatin=Flushed/Facial Moisture Restless Observation: 1= Difficult to Sit Still Pupil Size: 0= Normal to Room Light Bone or Joint Aches: 2= Severe Diffuse Aches Runny Nose/ Eye Tearin= None GI Upset > 30mins: 1= Stomach Cramp Tremor Observation of Outstretched Hands: 2= Slight Tremor Visible Yawning Observation: 2= >3x During Session Anxiety or Irritability: 2=Irritable/Anxious Goose Flesh Skin: 3=Piloerection COWS Score: 15 BHS Progress Note (SOAP) Subjective: Anxious, chills and sweat, body aches, interrupted sleep Objective: 10/09/17 13:12 Vital Signs Temperature 97.2 F L 10/09/17 10:20 Pulse Rate 70 10/09/17 10:20 Respiratory Rate 18 10/09/17 10:20 Blood Pressure 130/84 10/09/17 10:20 O2 Sat by Pulse Oximetry (%) Laboratory Last Values WBC 5.2 K/mm3 (4.0-10.0) 10/08/17 07:30 RBC 4.30 M/mm3 (4.00-5.60) 10/08/17 07:30 Hgb 12.4 GM/dL (11.7-16.9) 10/08/17 07:30 Hct 37.1 % (35.4-49) 10/08/17 07:30 MCV 86.3 fl (80-96) 10/08/17 07:30 MCH 28.8 pg (25.7-33.7) 10/08/17 07:30 MCHC 33.4 g/dl (32.0-35.9) 10/08/17 07:30 RDW 12.6 % (11.9-15.9) 10/08/17 07:30 Plt Count 145 K/MM3 (134-434) 10/08/17 07:30 MPV 9.8 fl (7.5-11.1) 10/08/17 07:30 Sodium 142 mmol/L (136-145) 10/08/17 07:30 Potassium 3.9 mmol/L (3.5-5.1) 10/08/17 07:30 Chloride 107 mmol/L (98-107) 10/08/17 07:30 Carbon Dioxide 29 mmol/L (21-32) 10/08/17 07:30 Anion Gap 6 (8-16) L 10/08/17 07:30 BUN 8 mg/dL (7-18) D 10/08/17 07:30 Creatinine 0.7 mg/dL (0.7-1.3) D 10/08/17 07:30 Creat Clearance w eGFR > 60 (>60) 10/08/17 07:30 POC Glucometer 102 UNITS (80-120) 10/08/17 06:12 Random Glucose 89 mg/dL (74-106) 10/08/17 07:30 Calcium 7.9 mg/dL (8.5-10.1) L 10/08/17 07:30 Total Bilirubin 0.4 mg/dL (0.2-1.0) D 10/08/17 07:30 AST 23 U/L (15-37) D 10/08/17 07:30 ALT 28 U/L (12-78) 10/08/17 07:30 Alkaline Phosphatase 66 U/L (45-117) 10/08/17 07:30 Total Protein 6.0 g/dl (6.4-8.2) L 10/08/17 07:30 Albumin 3.3 g/dl (3.4-5.0) L 10/08/17 07:30 Urine Color Maren 10/07/17 15:37 Urine Appearance Slcloudy 10/07/17 15:37 Urine pH 5.0 (5.0-8.0) 10/07/17 15:37 Ur Specific [place] 1.034 (1.001-1.035) 10/07/17 15:37 Urine Protein 1+ (NEGATIVE) H 10/07/17 15:37 Urine Glucose (UA) Negative (NEGATIVE) 10/07/17 15:37 Urine Ketones Negative (NEGATIVE) 10/07/17 15:37 Urine Blood Negative (NEGATIVE) 10/07/17 15:37 Urine Nitrite Negative (NEGATIVE) 10/07/17 15:37 Urine Bilirubin Negative (NEGATIVE) 10/07/17 15:37 Urine Urobilinogen 2.0 mg/dL (0.2-1.0) 10/07/17 15:37 Ur Leukocyte Esterase Negative (NEGATIVE) 10/07/17 15:37 Urine WBC (Auto) 1 /hpf (3-5) 10/07/17 15:37 Urine RBC (Auto) 4 /hpf (0-3) 10/07/17 15:37 Ur Epithelial Cells Rare /HPF (FEW) 10/07/17 15:37 Urine Mucus Moderate 10/07/17 15:37 RPR Titer Nonreactive (NONREACTIVE) 10/08/17 07:30 Labs noted Assessment: 10/09/17 13:13 withdrawal symptoms Plan: Continue Detox Increase Fluids Continue to monitor
[2017-10-09] MEDS: diazePAM 5 MG TABLET PO PRN (20:11)
--- NOTE | 2017-10-09 21:58 | DS ---
[facility] Detox Discharge Summary Admission Date: 10/07/17 Discharge Date: 10/09/17 - History Present History: Opioid Dependence Pertinent Past History: PATIENT INSISTS TO LEAVE THE DETOX FACILITY REFUSES TO WAIT FACE TO FACE WITH THE PROVIDER - Physical Exam Results Vital Signs: Vital Signs Temperature 98.1 F 10/09/17 18:10 Pulse Rate 65 10/09/17 18:10 Respiratory Rate 18 10/09/17 18:10 Blood Pressure 102/58 10/09/17 18:10 O2 Sat by Pulse Oximetry (%) Pertinent Admission Physical Exam Findings: WITHDRAWAL SX Vital Signs Temperature 98.1 F 10/09/17 18:10 Pulse Rate 65 10/09/17 18:10 Respiratory Rate 18 10/09/17 18:10 Blood Pressure 102/58 10/09/17 18:10 O2 Sat by Pulse Oximetry (%) Laboratory Last Values WBC 5.2 K/mm3 (4.0-10.0) 10/08/17 07:30 RBC 4.30 M/mm3 (4.00-5.60) 10/08/17 07:30 Hgb 12.4 GM/dL (11.7-16.9) 10/08/17 07:30 Hct 37.1 % (35.4-49) 10/08/17 07:30 MCV 86.3 fl (80-96) 10/08/17 07:30 MCH 28.8 pg (25.7-33.7) 10/08/17 07:30 MCHC 33.4 g/dl (32.0-35.9) 10/08/17 07:30 RDW 12.6 % (11.9-15.9) 10/08/17 07:30 Plt Count 145 K/MM3 (134-434) 10/08/17 07:30 MPV 9.8 fl (7.5-11.1) 10/08/17 07:30 Sodium 142 mmol/L (136-145) 10/08/17 07:30 Potassium 3.9 mmol/L (3.5-5.1) 10/08/17 07:30 Chloride 107 mmol/L (98-107) 10/08/17 07:30 Carbon Dioxide 29 mmol/L (21-32) 10/08/17 07:30 Anion Gap 6 (8-16) L 10/08/17 07:30 BUN 8 mg/dL (7-18) D 10/08/17 07:30 Creatinine 0.7 mg/dL (0.7-1.3) D 10/08/17 07:30 Creat Clearance w eGFR > 60 (>60) 10/08/17 07:30 POC Glucometer 102 UNITS (80-120) 10/08/17 06:12 Random Glucose 89 mg/dL (74-106) 10/08/17 07:30 Calcium 7.9 mg/dL (8.5-10.1) L 10/08/17 07:30 Total Bilirubin 0.4 mg/dL (0.2-1.0) D 10/08/17 07:30 AST 23 U/L (15-37) D 10/08/17 07:30 ALT 28 U/L (12-78) 10/08/17 07:30 Alkaline Phosphatase 66 U/L (45-117) 10/08/17 07:30 Total Protein 6.0 g/dl (6.4-8.2) L 10/08/17 07:30 Albumin 3.3 g/dl (3.4-5.0) L 10/08/17 07:30 Urine Color Maren 10/07/17 15:37 Urine Appearance Slcloudy 10/07/17 15:37 Urine pH 5.0 (5.0-8.0) 10/07/17 15:37 Ur Specific [place] 1.034 (1.001-1.035) 10/07/17 15:37 Urine Protein 1+ (NEGATIVE) H 10/07/17 15:37 Urine Glucose (UA) Negative (NEGATIVE) 10/07/17 15:37 Urine Ketones Negative (NEGATIVE) 10/07/17 15:37 Urine Blood Negative (NEGATIVE) 10/07/17 15:37 Urine Nitrite Negative (NEGATIVE) 10/07/17 15:37 Urine Bilirubin Negative (NEGATIVE) 10/07/17 15:37 Urine Urobilinogen 2.0 mg/dL (0.2-1.0) 10/07/17 15:37 Ur Leukocyte Esterase Negative (NEGATIVE) 10/07/17 15:37 Urine WBC (Auto) 1 /hpf (3-5) 10/07/17 15:37 Urine RBC (Auto) 4 /hpf (0-3) 10/07/17 15:37 Ur Epithelial Cells Rare /HPF (FEW) 10/07/17 15:37 Urine Mucus Moderate 10/07/17 15:37 RPR Titer Nonreactive (NONREACTIVE) 10/08/17 07:30 LAB NOTED - Treatment Hospital Course: Detox Protocol Followed, Responded well - Medication Discharge Medications: Ambulatory Orders NK [No Known Home Medication] 10/05/17 - AMA Did Patient Leave Against Medical Advice: Yes
[2017-10-09 23:06] VITALS: BP 129/79; PULSE 75; TEMP 98.6
[2017-10-10] MEDS ORDERED: METHADONE HCL 5 MG TABLET (FOR DETOX USE ONLY) PO ONE (10:00)
[2017-10-11] MEDS ORDERED: METHADONE HCL 10 MG TABLET (FOR DETOX USE ONLY) PO ONE (10:00)
[2017-10-12] MEDS ORDERED: METHADONE HCL 5 MG TABLET (FOR DETOX USE ONLY) PO ONE (06:00)
== END 2017-10-09 22:00 | disposition left against medical advice (07) | DRG 770 ==
LOC: YASAS 08:30 → Y6N 10:17
PROVIDERS: ADMIT Internal Medicine; ATTEND Internal Medicine
PROC: HZ2ZZZZ Detoxification Services for Substance Abuse Treatment (ICD-10-PCS; principal; 2017-10-07)
DX: F11.23 Opioid dependence with withdrawal (principal); F14.20 Cocaine dependence, uncomplicated; F12.20 Cannabis dependence, uncomplicated; E11.9 Type 2 diabetes mellitus without complications; Z79.4 Long term (current) use of insulin; Z85.71 Personal history of Hodgkin lymphoma; Y04.0XXA Assault by unarmed brawl or fight, initial encounter
CPT/HCPCS: 36415; 80053; 81003; 81015; 82962; 85027; 86593; 93005; 93010

== ENCOUNTER 2017-10-24 09:40 | Inpatient (IN) | payer OTHER ==
[2017-10-24 10:14] VITALS: BMI 20.9
--- NOTE | 2017-10-24 12:14 | HP ---
COWS - Scale Resting Pulse: 2= [place] 101-120 Sweatin= Chills/Flushing Restless Observation: 1= Difficult to Sit Still Pupil Size: 1= Pupils >than Normal Bone or Joint Aches: 1= Mild Discomfort Runny Nose/ Eye Tearin= Nasal Congestion GI Upset > 30mins: 2= Nausea/Diarrhea Tremor Observation: 1= Tremor [place], Not Seen Yawning Observation: 1= 1-2x During Session Anxiety or Irritability: 2=Irritable/Anxious Goose Flesh Skin: 3=Piloerection COWS Score: 16 Admission ROS S - [facility] Chief Complaint: opioid withdrawal sx Allergies/Adverse Reactions: Allergies Allergy/AdvReac Type Severity Reaction Status Date / Time No Known Drug Allergies Allergy Verified 10/24/17 10:35 History of Present Illness: 27 yo m with h/o chronic opioid dependence, multiple admissions for detox at [facility] did not complete last detox this month c/o heorin withdrawal sx when he does not use, denies all other illicit drug use other then sniffing cocaine occasionally. no h/o seizures, no si at this time no DTs, denies alcohol ue Exam Limitations: No Limitations - Ebola screening Have you traveled outside of the country in the last 21 days: No Have you had contact with anyone from an Ebola affected area: No Have you been sick,other than usual withdrawal symptoms: No Do you have a fever: No - Review of Systems Constitutional: Chills, Diaphoresis, Night Sweats, Changes in sleep, Weight Stable EENT: reports: Tearing, Nose Congestion Respiratory: reports: No Symptoms reported Cardiac: reports: No Symptoms Reported GI: reports: Diarrhea, Nausea, Poor Appetite, Poor Fluid Intake, Indigestion, Abdominal cramping : reports: No Symptoms Reported Musculoskeletal: reports: Back Pain, Muscle Pain (withdrwal sx) Integumentary: reports: Flushing, Sweating Neuro: reports: Tremors Endocrine: reports: Increased Thirst Hematology: reports: No Symptoms Reported Psychiatric: reports: Judgement Intact, Mood/Affect Appropiate, Orientated x3, Anxious, Depressed Other Systems: Reviewed and Negative Patient History - Patient Medical History Hx Anemia: No Hx Asthma: No Hx Chronic Obstructive Pulmonary Disease (COPD): No Hx Cancer: No Hx Cardiac Disorders: No Hx Hypertension: No Hx Hypercholesterolemia: No Hx Pacemaker: No HX Cerebrovascular Accident: No Hx Seizures: No Hx Diabetes: No Hx Gastrointestinal Disorders: No Hx Genitourinary Disorders: No Hx Sexually Transmitted Disorders: No Hx Renal Disease (ESRD): No Hx Thyroid Disease: No Hx Human Immunodeficiency Virus (HIV): No (NEGATIVE HX in 06/10) Hx Hepatitis C: No Hx Depression: Yes (anxiety and insomnia) Hx Suicide Attempt: No Hx Bipolar Disorder: No Hx Schizophrenia: No - Patient Surgical History Past Surgical History: No Hx Neurologic Surgery: No Hx Cataract Extraction: No Hx Cardiac Surgery: No Hx Lung Surgery: No Hx Breast Surgery: No Hx Breast Biopsy: No Hx Abdominal Surgery: No Hx Appendectomy: No Hx Cholecystectomy: No Hx Genitourinary Surgery: No Hx Section: No Hx Orthopedic Surgery: No Other Surgical History: R hand tendon repair in 2007 Anesthesia Reaction: No - PPD History Previous Implant?: Yes Documented Results: Negative w/proof Implanted On Prior [facility] Admission?: Yes Date: 06/21/17 Results: 0.0 PPD to be Administered?: No - Reproductive History Patient is a Female of Child Bearing Age (11 -55 yrs old): No Patient : No - Smoking Cessation Smoking history: Never smoked Have you smoked in the past 12 months: No Hx Chewing Tobacco Use: No Initiated information on smoking cessation: No 'Breaking Loose' booklet given: 10/24/17 - Substance & Tx. History Hx Alcohol Use: No Hx Substance Use: Yes Substance Use Type: Cocaine, Heroin, Opiates, Prescribed Hx Substance Use Treatment: Yes ([facility]) - Substances Abused Cocaine Route: Inhalation Frequency: 3-6 times per week Amount used: 1/2 gram Age of first use: 26 Date of Last Use: 10/22/17 Percocet Route: Oral Frequency: Daily Amount used: 100-150mg Age of first use: 25 Date of Last Use: 10/23/17 Family Disease History - Family Disease History Family History: Denies Admission Physical Exam BHS - Vital Signs Vital Signs: Vital Signs - 24 hr 10/24/17 10:00 Temperature 99.3 F Pulse Rate 102 H Respiratory 20 Rate Blood Pressure 146/89 - Physical General Appearance: Yes: Nourished, Appropriately Dressed, Disheveled, Mild Distress, Thin, Tremorous, Irritable, Sweating, Anxious HEENTM: Yes: EOMI, Hearing grossly Normal, Normocephalic, Normal Voice, BRAIN, Pharynx Normal, Nasal Congestion, Rhinorrhea Respiratory: Yes: Within Normal Limits, Chest Non-Tender, Lungs Clear, Normal Breath Sounds, No Respiratory Distress, No Accessory Muscle Use Neck: Yes: Within Normal Limits, No masses,lesions,Nodules, Supple, Trachea in good position Breast: Yes: Breast Exam Deferred Cardiology: Yes: Within Normal Limits, Regular Rhythm, Regular Rate Abdominal: Yes: Within Normal Limits, Normal Bowel Sounds, Non Tender, Flat, Soft, Increased Bowel Sounds Genitourinary: Yes: Within Normal Limits Back: Yes: Normal Inspection, Muscle Spasm Musculoskeletal: Yes: full range of Motion, Gait Steady, Pelvis Stable, Back pain Extremities: Yes: Normal Capillary Refill, Normal Range of Motion, Tremors 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, Fully Oriented, Alert, Motor Strength 5/5, Normal Response, Depressed Affect Integumentary: Yes: Within Normal Limits, Normal Color, Warm, Diaphoresis, Moist Lymphatic: Yes: Within Normal Limits - Addiitonal Findings: withdrawal sx - Diagnostic (1) Cannabis dependence, uncomplicated Current Visit: No Status: Acute (2) Cocaine dependence, uncomplicated Current Visit: No Status: Acute (3) IDDM (insulin dependent diabetes mellitus) Current Visit: No Status: Acute (4) Opioid dependence with withdrawal Current Visit: No Status: Acute (5) History of Hodgkin's lymphoma Current Visit: No Status: Chronic Cleared for Admission [facility] - Detox or Rehab [facility] Level of Care: Medically Managed Detox Regimen/Protocol: Methadone [facility] Breath Alcohol Content Breath Alcohol Content: 0 Urine Drug Screen - Results Drug Screen Negative: No Urine Drug Screen Results: THC-Marijuana, TARSHA-Cocaine, OPI-Opiates, BZO- Benzodiazepines, OXY-Oxycodone
[2017-10-24] MEDS ORDERED: MAGNESIUM HYDROX 2400MG/30ML ORAL SUSPENSION 30 ML CUP PO PRN (12:18)
[2017-10-24] MEDS ORDERED: ACETAMINOPHEN 325 MG TABLET (FP) PO PRN (12:18)
[2017-10-24] MEDS ORDERED: IBUPROFEN 400 MG TABLET (FP) PO PRN (12:18)
[2017-10-24] MEDS ORDERED: MENTHOL/PHENOL 1 EACH UD MM PRN (12:18)
[2017-10-24] MEDS ORDERED: LOPERAMIDE HCL 2 MG CAPSULE PO PRN (12:18)
[2017-10-24] MEDS ORDERED: guaiFENesin/D-METHORPHAN HB 10 ML UNIT-DOSE CUPS PO PRN (12:18)
[2017-10-24] MEDS ORDERED: MAG HYDROX/AL HYDROX/SIMETH 30 ML UNIT-DOSE CUP PO PRN (12:18)
[2017-10-24] MEDS ORDERED: P-EPHED 60MG/TRIPROLIDI 2.5MG TABLET PO PRN (12:18)
[2017-10-24] MEDS ORDERED: MAGNESIUM CITRATE 300 ML BOTTLE PO PRN (12:18)
[2017-10-24] MEDS ORDERED: METHADONE HCL 10 MG TABLET (FOR DETOX USE ONLY) PO ONE ×2 (12:28→23:00)
[2017-10-24] MEDS: diazePAM 5 MG TABLET PO PRN ×2 (13:58→22:39)
[2017-10-24] MEDS: cloNIDine HCL 0.1 MG TABLET PO SCH ×2 (13:58→22:39)
--- NOTE | 2017-10-24 15:47 | EKG ---
Test Reason : Blood Pressure : / mmHG Vent. Rate : 083 BPM Atrial Rate : 083 BPM P-R Int : 142 ms QRS Dur : 100 ms QT Int : 402 ms P-R-T Axes : 085 053 055 degrees QTc Int : 472 ms NORMAL SINUS RHYTHM INCOMPLETE RIGHT BUNDLE BRANCH BLOCK BORDERLINE ECG WHEN COMPARED WITH ECG OF 08-OCT-2017 10:48, NO SIGNIFICANT CHANGE WAS FOUND Confirmed by HERMELINDA WEIR, PATSY ([id number]) on 10/24/2017 3:47:16 PM Referred By: Confirmed By:PATSY SHEN MD
--- NOTE | 2017-10-24 16:51 | CONSULT ---
[facility] Psychiatric Consult - Data Date of interview: 10/24/17 Admission source: [facility] Identifying data: Pt. is a 27 year old single male, without kids, unemployed and living at home with his parents. [facility] Pt. admitted to for opiate and cocaine dependence. Substance Abuse History: Following information confirmed with Mr. Juares: Smoking Cessation. Smoking history: Never smoked. Have you smoked in the past 12 months: No. Hx Chewing Tobacco Use: No. Initiated information on smoking cessation: No. 'Breaking Loose' booklet given: 10/24/17. - Substance & Tx. History. Hx Alcohol Use: No. Hx Substance Use: Yes. Substance Use Type: Cocaine, Heroin, Opiates, Prescribed. Hx Substance Use Treatment: Yes ([facility] Kw[facility] ). - Substances Abused. Cocaine. Route: Inhalation. Frequency: 3-6 times per week. Amount used: 1/2 gram. Age of first use: 26. Date of Last Use: . Percocet. Route: Oral. Frequency: Daily. Amount used: 100-150mg. Age of first use: 25. Date of Last Use: 10/23/17 Medical History: Denies. Psychiatric History: Pt. denies h/o psychiatric hospitalizations, suicide attempts, and outpatient care. Physical/Sexual Abuse/Trauma History: Denies. Mental Status Exam - Mental Status Exam Alert and Oriented to: Time, Place, Person Cognitive Function: Good Patient Appearance: Well Groomed Mood: Euthymic Affect: Mood Congruent Patient Behavior: Appropriate, Cooperative Speech Pattern: Appropriate Voice Loudness: Normal Thought Process: Goal Oriented Thought Disorder: Not Present Hallucinations: Denies Suicidal Ideation: Denies Homicidal Ideation: Denies Insight/Judgement: Poor Sleep: Poorly Appetite: Fair Muscle strength/Tone: Normal Gait/Station: Normal Psychiatric Findings - Problem List ([place] 1, 2,3) (1) Cocaine dependence, uncomplicated Current Visit: Yes Status: Acute (2) Opioid dependence with withdrawal Current Visit: Yes Status: Acute (3) Insomnia Current Visit: Yes Status: Acute - Initial Treatment Plan Initial Treatment Plan: Psychoeducation provided. Detoxification in progress. Benadryl 50mg qhs PRN ordered for insomnia. Benefits and side effects discussed. Verbal consent given. Will continue to monitor.
[2017-10-24] MEDS ORDERED: diphenhydrAMINE HCL 25 MG CAPSULE (FP) PO PRN (22:00)
[2017-10-24] MEDS: THIAMINE HCL 100 MG TABLET (FP) PO SCH (22:38)
[2017-10-24 23:40] LABS: URINE APPEARANCE TURBID; URINE BILIRUBIN NEGATIVE (NEGATIVE); URINE BLOOD NEGATIVE (NEGATIVE); URINE COLOR YELLOW; URINE GLUCOSE (UA) NEGATIVE (NEGATIVE); URINE KETONE NEGATIVE (NEGATIVE); URINE LEUK ESTERASE NEGATIVE (NEGATIVE); URINE NITRITE NEGATIVE (NEGATIVE); URINE PROTEIN NEGATIVE (NEGATIVE); URINE UROBILINOGEN NEGATIVE mg/dL (0.2-1.0)
[2017-10-25] MEDS ORDERED: METHADONE HCL 10 MG TABLET (FOR DETOX USE ONLY) PO ONE (10:00)
[2017-10-25] MEDS: cloNIDine HCL 0.1 MG TABLET PO SCH ×2 (10:01→22:09)
[2017-10-25 10:20] LABS: HEMATOCRIT 34.8 % (35.4-49); HEMOGLOBIN 11.3 GM/dL (11.7-16.9); MCH 28.3 pg (25.7-33.7); MCHC 32.5 g/dl (32.0-35.9); MEAN PLT VOLUME 10.2 fl (7.5-11.1); PLATELET COUNT 203 K/MM3 (134-434); RDW 12.8 % (11.9-15.9); WHITE BLOOD COUNT 6.2 K/mm3 (4.0-10.0)
[2017-10-25 10:41] LABS: CHLORIDE 103 mmol/L (98-107); POTASSIUM 3.9 mmol/L (3.5-5.1); SODIUM 140 mmol/L (136-145)
[2017-10-25 10:49] LABS: ALBUMIN 3.5 g/dl (3.4-5.0); ALK PHOS 97 U/L (45-117); ANION GAP 6 (8-16); BILIRUBIN,TOTAL 0.6 mg/dL (0.2-1.0); BLOOD UREA NITROGEN 11 mg/dL (7-18); CALCIUM 8.4 mg/dL (8.5-10.1); CO2 31 mmol/L (21-32); CREATININE 1.1 mg/dL (0.7-1.3); GLUCOSE,RANDOM 77 mg/dL (74-106); SGOT/AST 17 U/L (15-37); SGPT/ALT 30 U/L (12-78); TOT PROT 6.9 g/dl (6.4-8.2)
[2017-10-25] MEDS: PRENATAL VITAMINS W/ FOLIC ACID TABLET (FP) PO SCH (11:08)
[2017-10-25] MEDS ORDERED: FLU VACCINE QUAD 60 MCG/0.5 ML (MDV 17-18) IM ONE (12:00)
[2017-10-25] MEDS ORDERED: PNEUMOC 13-VAL CONJ-DIP CRM/PF 0.5 ML DISP.SYRIN IM ONE (12:00)
--- NOTE | 2017-10-25 13:11 | PN ---
BHS COWS - Scale Resting Pulse: 0= [place] 80 or Below Sweatin=Flushed/Facial Moisture Restless Observation: 1= Difficult to Sit Still Pupil Size: 2= Moderately Dilated Bone or Joint Aches: 1= Mild Discomfort Runny Nose/ Eye Tearin= Runny Nose/Eyes GI Upset > 30mins: 2= Nausea/Diarrhea Tremor Observation of Outstretched Hands: 1= Tremor [place], Not Seen Yawning Observation: 0= None Anxiety or Irritability: 0= None Goose Flesh Skin: 3=Piloe[place] COWS Score: 14 BHS Progress Note (SOAP) Subjective: PT SEEN TODAY IN BED WITH C/O DIARRHEA. HE ADMITS TO 3 BM. Objective: 10/25/17 13:12 PT LYING IN BED IN NAD. Assessment: 10/25/17 13:14 OPIATE WITHDRAWAL. Plan: CONTINUE DETOX.CONTINUE IMMODIUM NEEDED. LOMOTIL WILL BE ORDERED IF NOT EFFECTIVE.
[2017-10-25] MEDS: THIAMINE HCL 100 MG TABLET (FP) PO SCH (22:10)
[2017-10-25] MEDS: diazePAM 5 MG TABLET PO PRN (22:10)
[2017-10-26] MEDS ORDERED: METHADONE HCL 5 MG TABLET (FOR DETOX USE ONLY) PO ONE (10:00)
[2017-10-26] MEDS: PRENATAL VITAMINS W/ FOLIC ACID TABLET (FP) PO SCH (10:25)
[2017-10-26] MEDS: diazePAM 5 MG TABLET PO PRN ×2 (10:25→14:39)
[2017-10-26] MEDS: cloNIDine HCL 0.1 MG TABLET PO SCH (10:25)
[2017-10-26 13:10] VITALS: BP 99/70; PULSE 64; TEMP 96.9
--- NOTE | 2017-10-26 15:02 | DS ---
[facility] Detox Discharge Summary Admission Date: 10/24/17 Discharge Date: 10/26/17 - History Present History: Cannabis Dependence, Opioid Dependence Additional Comments: PT SIGNED OUT AMA. SAW PT AND ENCOURAGED TO STAY BUT PT DECLINED STATING "I'M GOING TO OUT PATIENT WHERE I CAN GET MORE METHADONE". PT'S COUNSELOR CLINTON DIAZ MET WITH PATIENT. Pertinent Past History: SEE DX BELOW - Physical Exam Results Vital Signs: Vital Signs Temperature 96.9 F L 10/26/17 13:09 Pulse Rate 64 10/26/17 13:09 Respiratory Rate 18 10/26/17 13:09 Blood Pressure 99/70 10/26/17 13:09 O2 Sat by Pulse Oximetry (%) Pertinent Admission Physical Exam Findings: WITHDRAWAL SX Laboratory Last Values WBC 6.2 K/mm3 (4.0-10.0) 10/25/17 06:00 RBC 4.00 M/mm3 (4.00-5.60) 10/25/17 06:00 Hgb 11.3 GM/dL (11.7-16.9) L 10/25/17 06:00 Hct 34.8 % (35.4-49) L 10/25/17 06:00 MCV 87.0 fl (80-96) 10/25/17 06:00 MCH 28.3 pg (25.7-33.7) 10/25/17 06:00 MCHC 32.5 g/dl (32.0-35.9) 10/25/17 06:00 RDW 12.8 % (11.9-15.9) 10/25/17 06:00 Plt Count 203 K/MM3 (134-434) D 10/25/17 06:00 MPV 10.2 fl (7.5-11.1) 10/25/17 06:00 Platelet Comment No clumping noted 10/25/17 06:00 Sodium 140 mmol/L (136-145) 10/25/17 06:00 Potassium 3.9 mmol/L (3.5-5.1) 10/25/17 06:00 Chloride 103 mmol/L (98-107) 10/25/17 06:00 Carbon Dioxide 31 mmol/L (21-32) 10/25/17 06:00 Anion Gap 6 (8-16) L 10/25/17 06:00 BUN 11 mg/dL (7-18) D 10/25/17 06:00 Creatinine 1.1 mg/dL (0.7-1.3) D 10/25/17 06:00 Creat Clearance w eGFR > 60 (>60) 10/25/17 06:00 Random Glucose 77 mg/dL (74-106) 10/25/17 06:00 Calcium 8.4 mg/dL (8.5-10.1) L 10/25/17 06:00 Total Bilirubin 0.6 mg/dL (0.2-1.0) D 10/25/17 06:00 AST 17 U/L (15-37) D 10/25/17 06:00 ALT 30 U/L (12-78) 10/25/17 06:00 Alkaline Phosphatase 97 U/L (45-117) D 10/25/17 06:00 Total Protein 6.9 g/dl (6.4-8.2) 10/25/17 06:00 Albumin 3.5 g/dl (3.4-5.0) 10/25/17 06:00 Urine Color Yellow 10/24/17 23:25 Urine Appearance Turbid 10/24/17 23:25 Urine pH 5.0 (5.0-8.0) 10/24/17 23:25 Ur Specific [place] 1.032 (1.001-1.035) 10/24/17 23:25 Urine Protein Negative (NEGATIVE) 10/24/17 23:25 Urine Glucose (UA) Negative (NEGATIVE) 10/24/17 23:25 Urine Ketones Negative (NEGATIVE) 10/24/17 23:25 Urine Blood Negative (NEGATIVE) 10/24/17 23:25 Urine Nitrite Negative (NEGATIVE) 10/24/17 23:25 Urine Bilirubin Negative (NEGATIVE) 10/24/17 23:25 Urine Urobilinogen Negative mg/dL (0.2-1.0) 10/24/17 23:25 Ur Leukocyte Esterase Negative (NEGATIVE) 10/24/17 23:25 RPR Titer Nonreactive (NONREACTIVE) 10/25/17 06:00 - Treatment Hospital Course: Discharged Condition Good Patient has Accepted a Rehab Referral to: PT REFUSED REHAB - Medication Discharge Medications: Ambulatory Orders NK [No Known Home Medication] 10/24/17 - Diagnosis (1) Cocaine dependence, uncomplicated Status: Acute (2) Opioid dependence with withdrawal Status: Acute (3) Cannabis dependence, uncomplicated Status: Acute (4) History of Hodgkin's lymphoma Status: Chronic - AMA Did Patient Leave Against Medical Advice: Yes (AMA)
[2017-10-27] MEDS ORDERED: METHADONE HCL 5 MG TABLET (FOR DETOX USE ONLY) PO ONE (10:00)
[2017-10-28] MEDS ORDERED: METHADONE HCL 10 MG TABLET (FOR DETOX USE ONLY) PO ONE (10:00)
[2017-10-29] MEDS ORDERED: METHADONE HCL 5 MG TABLET (FOR DETOX USE ONLY) PO ONE (06:00)
== END 2017-10-26 15:57 | disposition left against medical advice (07) | DRG 770 ==
LOC: YASAS 09:40 → Y3N 12:12
PROVIDERS: ADMIT Internal Medicine; ATTEND Internal Medicine
PROC: HZ2ZZZZ Detoxification Services for Substance Abuse Treatment (ICD-10-PCS; principal; 2017-10-24)
DX: F11.23 Opioid dependence with withdrawal (principal); F14.20 Cocaine dependence, uncomplicated; F12.20 Cannabis dependence, uncomplicated; E10.9 Type 1 diabetes mellitus without complications; Z79.4 Long term (current) use of insulin; G47.00 Insomnia, unspecified; Z85.71 Personal history of Hodgkin lymphoma
CPT/HCPCS: 36415; 80053; 81003; 85027; 86593; 93005; 93010; J0735

== ENCOUNTER 2017-11-03 11:25 | Inpatient (IN) | payer OTHER ==
[2017-11-03 12:08] VITALS: BMI 20.9
--- NOTE | 2017-11-03 13:31 | HP ---
COWS - Scale Resting Pulse: 1= [place] 81-100 Sweatin= Chills/Flushing Restless Observation: 1= Difficult to Sit Still Pupil Size: 0= Normal to Room Light Bone or Joint Aches: 2= Severe Diffuse Aches Runny Nose/ Eye Tearin= Nasal Congestion GI Upset > 30mins: 1= Stomach Cramp Tremor Observation: 1= Tremor [place], Not Seen Yawning Observation: 0= None Anxiety or Irritability: 1=Feels Anxious/Irritable Goose Flesh Skin: 0=Smooth Skin COWS Score: 9 Admission ROS BHS - HPI Chief Complaint: I need to stop, I want help, I got really sick the last time but I know I have to get through it Allergies/Adverse Reactions: Allergies Allergy/AdvReac Type Severity Reaction Status Date / Time No Known Drug Allergies Allergy Verified 10/24/17 10:35 History of Present Illness: 27 yo gentleman here for detox from opiates - last here 10/24/17 - left AMA - discussed same with him and counseled him to complete treatement. No seizures. Initially with temp 102.8 which decreased with fluids to 99.9 over two hour period - noted warm, erythematous area left fore-arm - no cough. Although urine tox + benzo - denies using, states must be mixed with heroin. Denies drinking alcohol, only rare marijuana use. Exam Limitations: No Limitations - Ebola screening Have you traveled outside of the country in the last 21 days: No (N) Have you had contact with anyone from an Ebola affected area: No Have you been sick,other than usual withdrawal symptoms: No Do you have a fever: No - Review of Systems Constitutional: Loss of Appetite, Night Sweats, Changes in sleep, Weakness EENT: reports: Nose Congestion Cardiac: reports: No Symptoms Reported GI: reports: Abdominal cramping : reports: Dysuria Musculoskeletal: reports: Back Pain, Muscle Pain Integumentary: reports: No Symptoms Reported Neuro: reports: No Symptoms reported Endocrine: reports: No Symptoms Reported Hematology: reports: No Symptoms Reported Psychiatric: reports: Judgement Intact, Mood/Affect Appropiate, Orientated x3, Anxious Other Systems: Reviewed and Negative Patient History - Patient Medical History Hx Anemia: No Hx Asthma: No Hx Chronic Obstructive Pulmonary Disease (COPD): No Hx Cancer: Yes (hodgkins 2011 - chemo - in remission - sees oncologist) Hx Cardiac Disorders: No Hx Hypertension: No Hx Hypercholesterolemia: No Hx Pacemaker: No HX Cerebrovascular Accident: No Hx Seizures: No Hx Diabetes: No Hx Gastrointestinal Disorders: No Hx Genitourinary Disorders: No Hx Sexually Transmitted Disorders: No Hx Renal Disease (ESRD): No Hx Thyroid Disease: No Hx Human Immunodeficiency Virus (HIV): No Hx Hepatitis C: No Hx Depression: No Hx Suicide Attempt: No Hx Bipolar Disorder: No Hx Schizophrenia: No - Patient Surgical History Past Surgical History: No Hx Neurologic Surgery: No Hx Cataract Extraction: No Hx Cardiac Surgery: No Hx Lung Surgery: No Hx Breast Surgery: No Hx Breast Biopsy: No Hx Abdominal Surgery: No Hx Appendectomy: No Hx Cholecystectomy: No Hx Genitourinary Surgery: No Hx Section: No Hx Orthopedic Surgery: No Other Surgical History: R hand tendon repair in 2007 Anesthesia Reaction: No - PPD History Previous Implant?: Yes Documented Results: Negative w/proof Implanted On Prior [facility] Admission?: Yes Date: 06/21/17 Results: 0.0 PPD to be Administered?: No - Reproductive History Patient is a Female of Child Bearing Age (11 -55 yrs old): No (male) - Smoking Cessation Smoking history: Never smoked Have you smoked in the past 12 months: No Hx Chewing Tobacco Use: No Initiated information on smoking cessation: No - Substance & Tx. History Hx Alcohol Use: No Hx Substance Use: Yes Substance Use Type: Cocaine, Heroin, Opiates Hx Substance Use Treatment: Yes (detox) - Substances Abused Heroin Route: Injection Frequency: Daily Amount used: 1/2 gm Age of first use: 25 Date of Last Use: 11/03/17 percocet Route: Oral Frequency: 3-6 times per week Amount used: 20mg Age of first use: 24 Date of Last Use: 10/31/17 cocaine Route: Inhalation Frequency: 1-2 times per week Amount used: 1/2 gm Age of first use: 26 Date of Last Use: 11/01/17 Family Disease History - Family Disease History Family Disease History: Other: Father (living, healthy), Mother (living, healthy ), Brother (one - living - healthy), Sister (one- living - healthy) Admission Physical Exam BHS - Vital Signs Vital Signs: Vital Signs - 24 hr 11/03/17 12:05 Temperature 102.8 F H Pulse Rate 98 H Respiratory 20 Rate Blood Pressure 99/56 - Physical General Appearance: Yes: Nourished, Appropriately Dressed, Moderate Distress, Anxious HEENTM: Yes: Hearing grossly Normal, Normocephalic, Normal Voice, Pharynx Normal Respiratory: Yes: Normal Breath Sounds, No Respiratory Distress Neck: Yes: No masses,lesions,Nodules, Supple Breast: Yes: Breast Exam Deferred Cardiology: Yes: Regular Rhythm, Regular Rate Abdominal: Yes: Flat, Soft Genitourinary: Yes: Dysuria Back: Yes: Normal Inspection Musculoskeletal: Yes: full range of Motion, Gait Steady Extremities: Yes: Normal Inspection, Normal Range of Motion, Non-Tender 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: Fully Oriented, Alert, Motor Strength 5/5, Normal Mood/Affect , Normal Response Integumentary: Yes: Normal Color, Warm, Track [place] (left arm with mild tenderness, erythema at injection site) Lymphatic: Yes: Within Normal Limits - Diagnostic (1) Opioid dependence with withdrawal Current Visit: Yes Status: Acute (2) Cellulitis Current Visit: Yes Status: Acute Qualifiers: Site of cellulitis of extremity: upper extremity Laterality: left (3) Cocaine dependence, uncomplicated Current Visit: Yes Status: Acute (4) History of Hodgkin's lymphoma Current Visit: Yes Status: Chronic (5) Dehydration Current Visit: Yes Status: Acute Cleared for Admission [facility] - Detox or Rehab [facility] Level of Care: Medically Managed Detox Regimen/Protocol: Methadone [facility] Breath Alcohol Content Breath Alcohol Content: 0 Urine Drug Screen - Results Drug Screen Negative: No Urine Drug Screen Results: THC-Marijuana, TARSHA-Cocaine, OPI-Opiates, BZO- Benzodiazepines, OXY-Oxycodone
[2017-11-03] MEDS ORDERED: ACETAMINOPHEN 325 MG TABLET (FP) PO PRN (13:41)
[2017-11-03] MEDS ORDERED: P-EPHED 60MG/TRIPROLIDI 2.5MG TABLET PO PRN (13:41)
[2017-11-03] MEDS ORDERED: MAGNESIUM CITRATE 300 ML BOTTLE PO PRN (13:41)
[2017-11-03] MEDS ORDERED: MENTHOL/PHENOL 1 EACH UD MM PRN (13:41)
[2017-11-03] MEDS ORDERED: MAG HYDROX/AL HYDROX/SIMETH 30 ML UNIT-DOSE CUP PO PRN (13:41)
[2017-11-03] MEDS ORDERED: hydrOXYzine PAMOATE 50 MG CAPSULE (FP) PO PRN (13:41)
[2017-11-03] MEDS ORDERED: guaiFENesin/D-METHORPHAN HB 10 ML UNIT-DOSE CUPS PO PRN (13:41)
[2017-11-03] MEDS ORDERED: LOPERAMIDE HCL 2 MG CAPSULE PO PRN (13:41)
[2017-11-03] MEDS ORDERED: MAGNESIUM HYDROX 2400MG/30ML ORAL SUSPENSION 30 ML CUP PO PRN (13:41)
[2017-11-03] MEDS ORDERED: IBUPROFEN 400 MG TABLET (FP) PO PRN (13:41)
[2017-11-03] MEDS ORDERED: METHADONE HCL 10 MG TABLET (FOR DETOX USE ONLY) PO ONE ×2 (15:00→23:00)
[2017-11-03] MEDS: diazePAM 5 MG TABLET PO PRN ×2 (16:04→22:41)
[2017-11-03] MEDS: CEPHALEXIN MONOHYDRATE 500 MG CAPSULE (UD) PO SCH ×2 (17:39→23:57)
[2017-11-03 18:22] LABS: URINE APPEARANCE CLEAR; URINE BILIRUBIN NEGATIVE (NEGATIVE); URINE BLOOD NEGATIVE (NEGATIVE); URINE COLOR YELLOW; URINE GLUCOSE (UA) NEGATIVE (NEGATIVE); URINE KETONE NEGATIVE (NEGATIVE); URINE LEUK ESTERASE NEGATIVE (NEGATIVE); URINE NITRITE NEGATIVE (NEGATIVE); URINE PROTEIN NEGATIVE (NEGATIVE); URINE UROBILINOGEN NEGATIVE mg/dL (0.2-1.0)
[2017-11-03] MEDS: THIAMINE HCL 100 MG TABLET (FP) PO SCH (22:41)
[2017-11-04] MEDS: CEPHALEXIN MONOHYDRATE 500 MG CAPSULE (UD) PO SCH ×3 (05:45→17:56)
--- NOTE | 2017-11-04 08:38 | EKG ---
Test Reason : Blood Pressure : / mmHG Vent. Rate : 062 BPM Atrial Rate : 062 BPM P-R Int : 130 ms QRS Dur : 096 ms QT Int : 446 ms P-R-T Axes : 010 047 048 degrees QTc Int : 452 ms NORMAL SINUS RHYTHM INCOMPLETE RIGHT BUNDLE BRANCH BLOCK BORDERLINE ECG WHEN COMPARED WITH ECG OF 24-OCT-2017 13:26, NO SIGNIFICANT CHANGE WAS FOUND Confirmed by HERMELINDA WEIR, PATSY ([id number]) on 11/04/2017 8:38:28 AM Referred By: Confirmed By:PATSY SHEN MD
[2017-11-04] MEDS ORDERED: METHADONE HCL 10 MG TABLET (FOR DETOX USE ONLY) PO ONE (10:00)
--- NOTE | 2017-11-04 10:15 | CONSULT ---
[facility] Psychiatric Consult - Data Date of interview: 11/04/17 Admission source: Self-referred Identifying data: Mr Juares is a 27 years old single male, unemployed with no source of income, living with family seeling detox treatment for heroin , percocet and cocaine Substance Abuse History: Reports history of opoid and cocaine use. Refer to addiction counselor's note for further information Medical History: Significant for chemotherapy treatment for hodgkin's lymphoma diagnosed in 2010 (currently in remission) and history of orthosurgery for tendon repair right hand in 2007 Psychiatric History: Denies history of previous psychiatric treatment Physical/Sexual Abuse/Trauma History: Denies history of emotional, physical or sexual abuse as well as DV relationship Additional Comment: Denies criminal history Mental Status Exam - Mental Status Exam Alert and Oriented to: Time, Place, Person Cognitive Function: Fair Patient Appearance: Well Groomed Mood: Hopeful, Euthymic Patient Behavior: Cooperative Speech Pattern: Clear Voice Loudness: Normal Thought Process: Intact, Goal Oriented Thought Disorder: Not Present Hallucinations: Denies Suicidal Ideation: Denies Homicidal Ideation: Denies Insight/Judgement: Poor Sleep: Fair Appetite: Fair Muscle strength/Tone: Normal Gait/Station: Normal Psychiatric Findings - Problem List ([place] 1, 2,3) (1) Opioid dependence with withdrawal Current Visit: Yes Status: Acute (2) Cocaine dependence, uncomplicated Current Visit: Yes Status: Acute (3) History of Hodgkin's lymphoma Current Visit: Yes Status: Chronic - Initial Treatment Plan Initial Treatment Plan: Continue inpatient detoxification
[2017-11-04 10:27] LABS: CHLORIDE 104 mmol/L (98-107); POTASSIUM 4.5 mmol/L (3.5-5.1); SODIUM 140 mmol/L (136-145)
[2017-11-04 10:31] LABS: HEMATOCRIT 33.2 % (35.4-49); HEMOGLOBIN 10.9 GM/dL (11.7-16.9); MCH 27.9 pg (25.7-33.7); MCHC 32.9 g/dl (32.0-35.9); MEAN CELL VOLUME 84.8 fl (80-96); RBC 3.92 M/mm3 (4.00-5.60); WHITE BLOOD COUNT 6.5 K/mm3 (4.0-10.0)
[2017-11-04 10:34] LABS: ALBUMIN 2.8 g/dl (3.4-5.0); ALK PHOS 97 U/L (45-117); ANION GAP 4 (8-16); BILIRUBIN,TOTAL 0.7 mg/dL (0.2-1.0); BLOOD UREA NITROGEN 8 mg/dL (7-18); CO2 32 mmol/L (21-32); CREATININE 0.7 mg/dL (0.7-1.3); GLUCOSE,RANDOM 80 mg/dL (74-106); SGOT/AST 38 U/L (15-37); SGPT/ALT 30 U/L (12-78); TOT PROT 6.3 g/dl (6.4-8.2)
[2017-11-04] MEDS: PRENATAL VITAMINS W/ FOLIC ACID TABLET (FP) PO SCH (10:57)
[2017-11-04] MEDS: diazePAM 5 MG TABLET PO PRN ×3 (11:00→22:23)
[2017-11-04] MEDS ORDERED: ONDANSETRON *ODT* 4 MG TABLET SL PRN (11:44)
--- NOTE | 2017-11-04 11:46 | PN ---
S COWS - Scale Resting Pulse: 0= [place] 80 or Below Sweatin= Chills/Flushing Restless Observation: 1= Difficult to Sit Still Pupil Size: 0= Normal to Room Light Bone or Joint Aches: 2= Severe Diffuse Aches Runny Nose/ Eye Tearin= Runny Nose/Eyes GI Upset > 30mins: 2= Nausea/Diarrhea Tremor Observation of Outstretched Hands: 2= Slight Tremor Visible Yawning Observation: 2= >3x During Session Anxiety or Irritability: 2=Irritable/Anxious Goose Flesh Skin: 0=Smooth Skin COWS Score: 14 S Progress Note (SOAP) Subjective: joint aches sweat tremor anxiety muscle aches restlessness diarrhea nausea Objective: 11/04/17 11:45 Vital Signs Temperature 98.2 F 11/04/17 10:00 Pulse Rate 70 11/04/17 10:00 Respiratory Rate 18 11/04/17 10:00 Blood Pressure 108/65 11/04/17 10:00 O2 Sat by Pulse Oximetry (%) Laboratory Last Values WBC 6.5 K/mm3 (4.0-10.0) 11/04/17 08:00 RBC 3.92 M/mm3 (4.00-5.60) L 11/04/17 08:00 Hgb 10.9 GM/dL (11.7-16.9) L 11/04/17 08:00 Hct 33.2 % (35.4-49) L 11/04/17 08:00 MCV 84.8 fl (80-96) 11/04/17 08:00 MCH 27.9 pg (25.7-33.7) 11/04/17 08:00 MCHC 32.9 g/dl (32.0-35.9) 11/04/17 08:00 RDW 13.0 % (11.9-15.9) 11/04/17 08:00 Plt Count K/MM3 (134-434) 11/04/17 08:00 Platelet Comment Slt plt clumping 11/04/17 08:00 Sodium 140 mmol/L (136-145) 11/04/17 08:00 Potassium 4.5 mmol/L (3.5-5.1) 11/04/17 08:00 Chloride 104 mmol/L (98-107) 11/04/17 08:00 Carbon Dioxide 32 mmol/L (21-32) 11/04/17 08:00 Anion Gap 4 (8-16) L 11/04/17 08:00 BUN 8 mg/dL (7-18) D 11/04/17 08:00 Creatinine 0.7 mg/dL (0.7-1.3) D 11/04/17 08:00 Creat Clearance w eGFR > 60 (>60) 11/04/17 08:00 Random Glucose 80 mg/dL (74-106) 11/04/17 08:00 Calcium 8.0 mg/dL (8.5-10.1) L 11/04/17 08:00 Total Bilirubin 0.7 mg/dL (0.2-1.0) 11/04/17 08:00 AST 38 U/L (15-37) H D 11/04/17 08:00 ALT 30 U/L (12-78) 11/04/17 08:00 Alkaline Phosphatase 97 U/L (45-117) 11/04/17 08:00 Total Protein 6.3 g/dl (6.4-8.2) L 11/04/17 08:00 Albumin 2.8 g/dl (3.4-5.0) L 11/04/17 08:00 Urine Color Yellow 11/03/17 15:34 Urine Appearance Clear 11/03/17 15:34 Urine pH 6.0 (5.0-8.0) 11/03/17 15:34 Ur Specific [place] 1.012 (1.001-1.035) 11/03/17 15:34 Urine Protein Negative (NEGATIVE) 11/03/17 15:34 Urine Glucose (UA) Negative (NEGATIVE) 11/03/17 15:34 Urine Ketones Negative (NEGATIVE) 11/03/17 15:34 Urine Blood Negative (NEGATIVE) 11/03/17 15:34 Urine Nitrite Negative (NEGATIVE) 11/03/17 15:34 Urine Bilirubin Negative (NEGATIVE) 11/03/17 15:34 Urine Urobilinogen Negative mg/dL (0.2-1.0) 11/03/17 15:34 Ur Leukocyte Esterase Negative (NEGATIVE) 11/03/17 15:34 lab noted Assessment: 11/04/17 11:46 withdrawal sx Plan: continue detox zofran 4 mg prn
[2017-11-04] MEDS: THIAMINE HCL 100 MG TABLET (FP) PO SCH (22:22)
[2017-11-05] MEDS: CEPHALEXIN MONOHYDRATE 500 MG CAPSULE (UD) PO SCH ×5 (00:13→23:09)
[2017-11-05] MEDS ORDERED: METHADONE HCL 5 MG TABLET (FOR DETOX USE ONLY) PO ONE (10:00)
[2017-11-05] MEDS: PRENATAL VITAMINS W/ FOLIC ACID TABLET (FP) PO SCH (10:39)
[2017-11-05] MEDS: diazePAM 5 MG TABLET PO PRN ×3 (10:42→23:08)
--- NOTE | 2017-11-05 10:43 | PN ---
BHS COWS - Scale Resting Pulse: 1= [place] 81-100 Sweatin= Chills/Flushing Restless Observation: 3= Extraneous Movement Pupil Size: 1= Pupils >than Normal Bone or Joint Aches: 2= Severe Diffuse Aches Runny Nose/ Eye Tearin= Runny Nose/Eyes GI Upset > 30mins: 2= Nausea/Diarrhea Tremor Observation of Outstretched Hands: 2= Slight Tremor Visible Yawning Observation: 1= 1-2x During Session Anxiety or Irritability: 2=Irritable/Anxious Goose Flesh Skin: 0=Smooth Skin COWS Score: 17 BHS Progress Note (SOAP) Subjective: ALERT,IRRITABLE,ANXIOUS,INTERRUPTED SLEEP,TREMOR,PAIN IN THE BODY AND BACK Objective: 11/05/17 10:40 Vital Signs Temperature 97.7 F 11/05/17 10:37 Pulse Rate 58 L 11/05/17 10:37 Respiratory Rate 18 11/05/17 10:37 Blood Pressure 138/73 11/05/17 10:37 O2 Sat by Pulse Oximetry (%) 11/04/17 08:00 Plt Count Laboratory Last Values WBC 6.5 K/mm3 (4.0-10.0) 11/04/17 08:00 RBC 3.92 M/mm3 (4.00-5.60) L 11/04/17 08:00 Hgb 10.9 GM/dL (11.7-16.9) L 11/04/17 08:00 Hct 33.2 % (35.4-49) L 11/04/17 08:00 MCV 84.8 fl (80-96) 11/04/17 08:00 MCH 27.9 pg (25.7-33.7) 11/04/17 08:00 MCHC 32.9 g/dl (32.0-35.9) 11/04/17 08:00 RDW 13.0 % (11.9-15.9) 11/04/17 08:00 Plt Count K/MM3 (134-434) 11/04/17 08:00 Platelet Comment Slt plt clumping 11/04/17 08:00 Sodium 140 mmol/L (136-145) 11/04/17 08:00 Potassium 4.5 mmol/L (3.5-5.1) 11/04/17 08:00 Chloride 104 mmol/L (98-107) 11/04/17 08:00 Carbon Dioxide 32 mmol/L (21-32) 11/04/17 08:00 Anion Gap 4 (8-16) L 11/04/17 08:00 BUN 8 mg/dL (7-18) D 11/04/17 08:00 Creatinine 0.7 mg/dL (0.7-1.3) D 11/04/17 08:00 Creat Clearance w eGFR > 60 (>60) 11/04/17 08:00 Random Glucose 80 mg/dL (74-106) 11/04/17 08:00 Calcium 8.0 mg/dL (8.5-10.1) L 11/04/17 08:00 Total Bilirubin 0.7 mg/dL (0.2-1.0) 11/04/17 08:00 AST 38 U/L (15-37) H D 11/04/17 08:00 ALT 30 U/L (12-78) 11/04/17 08:00 Alkaline Phosphatase 97 U/L (45-117) 11/04/17 08:00 Total Protein 6.3 g/dl (6.4-8.2) L 11/04/17 08:00 Albumin 2.8 g/dl (3.4-5.0) L 11/04/17 08:00 Urine Color Yellow 11/03/17 15:34 Urine Appearance Clear 11/03/17 15:34 Urine pH 6.0 (5.0-8.0) 11/03/17 15:34 Ur Specific [place] 1.012 (1.001-1.035) 11/03/17 15:34 Urine Protein Negative (NEGATIVE) 11/03/17 15:34 Urine Glucose (UA) Negative (NEGATIVE) 11/03/17 15:34 Urine Ketones Negative (NEGATIVE) 11/03/17 15:34 Urine Blood Negative (NEGATIVE) 11/03/17 15:34 Urine Nitrite Negative (NEGATIVE) 11/03/17 15:34 Urine Bilirubin Negative (NEGATIVE) 11/03/17 15:34 Urine Urobilinogen Negative mg/dL (0.2-1.0) 11/03/17 15:34 Ur Leukocyte Esterase Negative (NEGATIVE) 11/03/17 15:34 RPR Titer Nonreactive (NONREACTIVE) 11/04/17 08:00 Assessment: 11/05/17 10:42 WITHDRAWAL SYMPTOM Plan: CONTINUE DETOX
[2017-11-05] MEDS: THIAMINE HCL 100 MG TABLET (FP) PO SCH (23:08)
[2017-11-06] MEDS: diazePAM 5 MG TABLET PO PRN ×2 (04:35→10:32)
[2017-11-06] MEDS: CEPHALEXIN MONOHYDRATE 500 MG CAPSULE (UD) PO SCH ×4 (05:17→23:23)
--- NOTE | 2017-11-06 09:36 | PN ---
BHS Progress Note (SOAP) Subjective: ALERT,IRRITABLE,ANXIOUS,INTERRUPTED SLEEP,PAIN IN THE BODY AND BACK Objective: 11/06/17 09:35 Vital Signs Temperature 98.2 F 11/06/17 06:15 Pulse Rate 64 11/06/17 06:15 Respiratory Rate 18 11/06/17 06:15 Blood Pressure 112/51 11/06/17 06:15 O2 Sat by Pulse Oximetry (%) Assessment: 11/06/17 09:36 WITHDRAWAL SYMPTOM Plan: CONTINUE DETOX
[2017-11-06] MEDS ORDERED: METHADONE HCL 5 MG TABLET (FOR DETOX USE ONLY) PO ONE (10:00)
[2017-11-06] MEDS: PRENATAL VITAMINS W/ FOLIC ACID TABLET (FP) PO SCH (10:29)
[2017-11-06] MEDS: THIAMINE HCL 100 MG TABLET (FP) PO SCH (22:16)
[2017-11-07] MEDS: CEPHALEXIN MONOHYDRATE 500 MG CAPSULE (UD) PO SCH (06:37)
--- NOTE | 2017-11-07 09:07 | PN ---
S Progress Note (SOAP) Subjective: ALERT,NO COMPLAINT Objective: 11/07/17 09:06 Vital Signs Temperature 97.3 F L 11/07/17 04:00 Pulse Rate 58 L 11/07/17 04:00 Respiratory Rate 18 11/07/17 04:00 Blood Pressure 100/37 11/07/17 04:00 O2 Sat by Pulse Oximetry (%) Assessment: 11/07/17 09:06 PATIENT IS STABLE FOR DISCHARGE TO [facility] PROGRAM Plan: DISCHARGE TODAY
--- NOTE | 2017-11-07 09:10 | DS ---
[facility] Detox Discharge Summary Admission Date: 11/03/17 Discharge Date: 11/07/17 - History Present History: Cocaine Dependence, Opioid Dependence Additional Comments: FOLLOW UP WITH AFTER CARE PROGRAM ARRANGEMENT Pertinent Past History: HISTORY OF HODGEKIN'S LYMPHOMA - Physical Exam Results Vital Signs: Vital Signs Temperature 97.3 F L 11/07/17 04:00 Pulse Rate 58 L 11/07/17 04:00 Respiratory Rate 18 11/07/17 04:00 Blood Pressure 100/37 11/07/17 04:00 O2 Sat by Pulse Oximetry (%) Pertinent Admission Physical Exam Findings: WITHDRAWAL SIGNS AND SYMPTOM - Treatment Hospital Course: Detox Protocol Followed, Detoxed Safely, Responded well, Discharged Condition Good, Rehab Referral Accepted Patient has Accepted a Rehab Referral to: [facility] - Medication Discharge Medications: Ambulatory Orders NK [No Known Home Medication] 10/24/17 - Diagnosis (1) Opioid dependence with withdrawal Current Visit: Yes Status: Acute (2) Cellulitis Current Visit: Yes Status: Acute Qualifiers: Site of cellulitis of extremity: upper extremity Laterality: left (3) Cocaine dependence, uncomplicated Current Visit: Yes Status: Acute (4) History of Hodgkin's lymphoma Current Visit: Yes Status: Chronic - AMA Did Patient Leave Against Medical Advice: No
[2017-11-07] MEDS ORDERED: METHADONE HCL 10 MG TABLET (FOR DETOX USE ONLY) PO ONE (10:00)
[2017-11-07 10:22] VITALS: BP 117/76; PULSE 64; TEMP 98.1
[2017-11-08] MEDS ORDERED: METHADONE HCL 5 MG TABLET (FOR DETOX USE ONLY) PO ONE (06:00)
== END 2017-11-07 09:50 | disposition home or self-care (01) | DRG 773 ==
LOC: YASAS 11:25 → Y6N 14:45
PROVIDERS: ADMIT Internal Medicine; ATTEND Internal Medicine
PROC: HZ2ZZZZ Detoxification Services for Substance Abuse Treatment (ICD-10-PCS; principal; 2017-11-03)
DX: F11.23 Opioid dependence with withdrawal (principal); F14.20 Cocaine dependence, uncomplicated; L03.114 Cellulitis of left upper limb; E86.0 Dehydration; Z85.71 Personal history of Hodgkin lymphoma
CPT/HCPCS: 36415; 80053; 81003; 85027; 86593; 93005; 93010

== ENCOUNTER 2018-01-23 12:15 | Inpatient (IN) | payer OTHER ==
[2018-01-23 15:18] VITALS: BMI 21.9
--- NOTE | 2018-01-23 20:02 | HP ---
COWS - Scale Resting Pulse: 0= [place] 80 or Below Sweatin= Chills/Flushing Restless Observation: 1= Difficult to Sit Still Pupil Size: 0= Normal to Room Light Bone or Joint Aches: 1= Mild Discomfort Runny Nose/ Eye Tearin= None GI Upset > 30mins: 1= Stomach Cramp Tremor Observation: 1= Tremor [place], Not Seen Yawning Observation: 1= 1-2x During Session Anxiety or Irritability: 1=Feels Anxious/Irritable Goose Flesh Skin: 3=Piloerection COWS Score: 10 Admission [facility] Chief Complaint: opioid withdrawal sx Allergies/Adverse Reactions: Allergies Allergy/AdvReac Type Severity Reaction Status Date / Time No Known Drug Allergies Allergy Verified 01/23/18 19:01 History of Present Illness: 27 yo male with THC, opiod (percocet) and cocaine dependence is here seeking detox. PMHX: hodkins lymphoma, anxiety. Denies hx of overdose, seizures or blackouts. Denies suicidal / homicidal ideation or suicide attempts. Last detox [facility] 12/03/17 -12/07/17. Exam Limitations: No Limitations - Ebola screening Have you traveled outside of the country in the last 21 days: No Have you had contact with anyone from an Ebola affected area: No Have you been sick,other than usual withdrawal symptoms: No - Review of Systems Constitutional: Chills, Diaphoresis, Loss of Appetite, Weakness, Unintentional Wgt. Loss (20 lbs over two years) EENT: reports: No Symptoms Reported Respiratory: reports: No Symptoms reported Cardiac: reports: No Symptoms Reported GI: reports: Diarrhea, Poor Appetite, Poor Fluid Intake, Abdominal cramping : reports: No Symptoms Reported Musculoskeletal: reports: Back Pain, Joint Pain Integumentary: reports: No Symptoms Reported Neuro: reports: Headache Endocrine: reports: Increased Thirst Hematology: reports: No Symptoms Reported Psychiatric: reports: Orientated x3, Depressed Other Systems: Reviewed and Negative Patient History - Patient Medical History Hx Anemia: No Hx Asthma: No Hx Chronic Obstructive Pulmonary Disease (COPD): No Hx Cancer: Yes (hodgkins 2011 - chemo - in remission - sees oncologist) Hx Cardiac Disorders: No Hx Congestive Heart Failure: No Hx Hypertension: No Hx Hypercholesterolemia: No Hx Pacemaker: No HX Cerebrovascular Accident: No Hx Seizures: No Hx Dementia: No Hx Diabetes: No Hx Gastrointestinal Disorders: No Hx Liver Disease: No Hx Genitourinary Disorders: No Hx Sexually Transmitted Disorders: No Hx Renal Disease (ESRD): No Hx Thyroid Disease: No Hx Human Immunodeficiency Virus (HIV): No Hx Hepatitis C: No Hx Depression: No Hx Suicide Attempt: No Hx Bipolar Disorder: No Hx Schizophrenia: No - Patient Surgical History Past Surgical History: No Hx Neurologic Surgery: No Hx Cataract Extraction: No Hx Cardiac Surgery: No Hx Lung Surgery: No Hx Breast Surgery: No Hx Breast Biopsy: No Hx Abdominal Surgery: No Hx Appendectomy: No Hx Cholecystectomy: No Hx Genitourinary Surgery: No Hx Section: No Hx Orthopedic Surgery: No Other Surgical History: R hand tendon repair in 2007 Anesthesia Reaction: No - PPD History Previous Implant?: Yes Documented Results: Negative w/proof Date: 06/21/17 Results: 0.0 PPD to be Administered?: No - Reproductive History Patient is a Female of Child Bearing Age (11 -55 yrs old): No - Smoking Cessation Smoking history: Never smoked Have you smoked in the past 12 months: No Hx Chewing Tobacco Use: No Initiated information on smoking cessation: No - Substance & Tx. History Hx Alcohol Use: No Hx Substance Use: Yes Substance Use Type: Marijuana, Opiates Hx Substance Use Treatment: Yes ([facility] 12/03/17 - 12/07/17) - Substances Abused Cocaine Route: Smoking Frequency: Daily Amount used: 3 BAGS Age of first use: 26 Date of Last Use: 01/22/18 PERCOCETS Route: Oral Frequency: Daily Amount used: 10/ 10MG Age of first use: 24 Date of Last Use: 01/22/18 Family Disease History - Family Disease History Family Disease History: Other: Father (living, healthy), Mother (living, healthy ), Brother (one - living - healthy), Sister (one- living - healthy) Admission Physical Exam BHS - Vital Signs Vital Signs: Vital Signs - 24 hr 01/23/18 14:52 Temperature 97.9 F Pulse Rate 79 Respiratory 18 Rate Blood Pressure 137/84 - Physical General Appearance: Yes: Appropriately Dressed, Thin, Anxious HEENTM: Yes: EOMI, Hearing grossly Normal, Normal ENT Inspection, Normocephalic , Normal Voice, BRAIN, Pharynx Normal, Tm's normal Respiratory: Yes: Chest Non-Tender, Lungs Clear, Normal Breath Sounds, No Respiratory Distress, No Accessory Muscle Use Breast: Yes: Breast Exam Deferred Cardiology: Yes: Regular Rhythm, Regular Rate Abdominal: Yes: Normal Bowel Sounds, Non Tender, Flat, Soft Genitourinary: Yes: Within Normal Limits Back: Yes: Normal Inspection Musculoskeletal: Yes: full range of Motion, Gait Steady, Pelvis Stable, Back pain Extremities: Yes: Normal Capillary Refill, Normal Inspection, Normal Range of Motion, Non-Tender 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: mission manager II-XII NML intact, Fully Oriented, Alert, Motor Strength 5/5, Depressed Affect Integumentary: Yes: Normal Color, Warm, Moist Lymphatic: Yes: Within Normal Limits - Diagnostic (1) Weight loss Current Visit: Yes Status: Acute (2) Back pain Current Visit: Yes Status: Acute Qualifiers: Back pain location: low back pain Back pain laterality: midline (3) Cannabis dependence, uncomplicated Current Visit: Yes Status: Acute (4) Cocaine dependence, uncomplicated Current Visit: Yes Status: Acute (5) Opioid dependence with withdrawal Current Visit: Yes Status: Acute Cleared for Admission [facility] - Detox or Rehab [facility] Level of Care: Medically Supervised Detox Regimen/Protocol: Methadone [facility] Breath Alcohol Content Breath Alcohol Content: 0 Urine Drug Screen - Results Drug Screen Negative: No Urine Drug Screen Results: THC-Marijuana, TARSHA-Cocaine, OPI-Opiates
[2018-01-23] MEDS ORDERED: LOPERAMIDE HCL 2 MG CAPSULE PO PRN (20:10)
[2018-01-23] MEDS ORDERED: MAGNESIUM HYDROX 2400MG/30ML ORAL SUSPENSION 30 ML CUP PO PRN (20:10)
[2018-01-23] MEDS ORDERED: IBUPROFEN 400 MG TABLET (FP) PO PRN (20:10)
[2018-01-23] MEDS ORDERED: MENTHOL/PHENOL 1 EACH UD MM PRN (20:10)
[2018-01-23] MEDS ORDERED: MAG HYDROX/AL HYDROX/SIMETH 30 ML UNIT-DOSE CUP PO PRN (20:10)
[2018-01-23] MEDS ORDERED: ACETAMINOPHEN 325 MG TABLET (FP) PO PRN (20:10)
[2018-01-23] MEDS ORDERED: P-EPHED 60MG/TRIPROLIDI 2.5MG TABLET PO PRN (20:10)
[2018-01-23] MEDS ORDERED: guaiFENesin/D-METHORPHAN HB 10 ML UNIT-DOSE CUPS PO PRN (20:10)
[2018-01-23] MEDS ORDERED: METHADONE HCL 10 MG TABLET (FOR DETOX USE ONLY) PO ONE ×2 (20:10→23:00)
[2018-01-23] MEDS ORDERED: MAGNESIUM CITRATE 300 ML BOTTLE PO PRN (20:10)
[2018-01-23] MEDS ORDERED: hydrOXYzine PAMOATE 50 MG CAPSULE (FP) PO PRN (20:10)
[2018-01-23] MEDS: THIAMINE HCL 100 MG TABLET (FP) PO SCH (21:17)
[2018-01-23] MEDS: diazePAM 5 MG TABLET PO PRN (21:17)
[2018-01-23] MEDS ORDERED: MELATONIN 5 MG TABLETS PO PRN (22:00)
[2018-01-23 23:39] LABS: URINE APPEARANCE TURBID; URINE BILIRUBIN NEGATIVE (<2.0 mg/dL); URINE COLOR AMBER; URINE GLUCOSE (UA) NEGATIVE (NEGATIVE); URINE KETONE NEGATIVE (NEGATIVE); URINE LEUK ESTERASE NEGATIVE (NEGATIVE); URINE NITRITE NEGATIVE (NEGATIVE); URINE UROBILINOGEN NEGATIVE mg/dL (0.2-1.0)
[2018-01-23 23:51] LABS: URINE PROTEIN 1+ (NEGATIVE)
[2018-01-23 23:57] LABS: URINE BACTERIA RARE /hpf (NONE SEEN); URINE HYALINE CAST 8 /lpf; URINE MUCUS MANY
[2018-01-24 09:42] LABS: HEMATOCRIT 34.4 % (35.4-49); HEMOGLOBIN 11.3 GM/dL (11.7-16.9); MCH 27.2 pg (25.7-33.7); MCHC 32.7 g/dl (32.0-35.9); MEAN PLT VOLUME 10.1 fl (7.5-11.1); PLATELET COUNT 203 K/MM3 (134-434); RBC 4.15 M/mm3 (4.00-5.60); RDW 16.4 % (11.9-15.9)
[2018-01-24] MEDS ORDERED: METHADONE HCL 10 MG TABLET (FOR DETOX USE ONLY) PO ONE (10:00)
--- NOTE | 2018-01-24 10:14 | CONSULT ---
[facility] Psychiatric Consult - Data Date of interview: 01/24/18 Admission source: [facility] Identifying data: Patient is a 27 year old single male, without kids, unemployed , and currently lives with family. This is one of multiple admissions for patient. Pt. admitted to for cannabis, cocaine, and opioid dependence. Substance Abuse History: Following information confirmed with Mr. Juares: Smoking Cessation. Smoking history: Never smoked. Have you smoked in the past 12 months: No. Hx Chewing Tobacco Use: No. Initiated information on smoking cessation: No. - Substance & Tx. History. Hx Alcohol Use: No. Hx Substance Use: Yes. Substance Use Type: Marijuana, Opiates. Hx Substance Use Treatment: Yes ([facility] 12/03/17 - 12/07/17). - Substances Abused. Cocaine. Route: Smoking. Frequency: Daily. Amount used: 3 BAGS. Age of first use: 26. Date of Last Use: 01/22/18. PERCOCETS. Route: Oral. Frequency: Daily. Amount used: 10/ 10MG. Age of first use: 24. Date of Last Use: 01/22/18 Medical History: History of chemotherapy for hodgkin's lymphoma (diagnosed in 2010) and currently in remission and antecedent of orthosurgery for tendon repair (right hand) in 2007. Psychiatric History: Patient denies h/o psychiatric hospitalization, outpatient care, and suicide attempt. Physical/Sexual Abuse/Trauma History: Denies. Mental Status Exam - Mental Status Exam Alert and Oriented to: Time, Place, Person Cognitive Function: Good Patient Appearance: Well Groomed Mood: Withdrawn, Euthymic Affect: Mood Congruent Patient Behavior: Guarded Speech Pattern: Delayed Voice Loudness: Moderately Soft/Quiet Thought Process: Goal Oriented Thought Disorder: Not Present Hallucinations: Denies Suicidal Ideation: Denies Homicidal Ideation: Denies Insight/Judgement: Poor Sleep: Fair Appetite: Fair Muscle strength/Tone: Normal Gait/Station: Normal Psychiatric Findings - Problem List ([place] 1, 2,3) (1) Cannabis dependence, uncomplicated Current Visit: Yes Status: Acute (2) Cocaine dependence, uncomplicated Current Visit: Yes Status: Acute (3) Opioid dependence with withdrawal Current Visit: Yes Status: Acute (4) Insomnia Current Visit: Yes Status: Acute Qualifiers: Insomnia type: unspecified Qualified Code(s): G47.00 - Insomnia, unspecified - Initial Treatment Plan Initial Treatment Plan: Psychoeducation provided. Detoxification in progress. 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 Observation.
--- NOTE | 2018-01-24 10:23 | PN ---
S COWS - Scale Resting Pulse: 0= [place] 80 or Below Sweatin= Chills/Flushing Restless Observation: 3= Extraneous Movement Pupil Size: 2= Moderately Dilated Bone or Joint Aches: 2= Severe Diffuse Aches Runny Nose/ Eye Tearin= None GI Upset > 30mins: 0= None Tremor Observation of Outstretched Hands: 1= Tremor [place], Not Seen Yawning Observation: 1= 1-2x During Session Anxiety or Irritability: 2=Irritable/Anxious Goose Flesh Skin: 0=Smooth Skin COWS Score: 12 S Progress Note (SOAP) Subjective: ANXIETY,SWEATS,CHILS, FATIGUE. Objective: 01/24/18 10:22 Vital Signs Temperature 96.7 F L 01/24/18 09:14 Pulse Rate 66 01/24/18 09:14 Respiratory Rate 16 01/24/18 09:14 Blood Pressure 104/58 01/24/18 09:14 O2 Sat by Pulse Oximetry (%) Laboratory Last Values WBC 5.0 K/mm3 (4.0-10.0) 01/24/18 06:00 RBC 4.15 M/mm3 (4.00-5.60) 01/24/18 06:00 Hgb 11.3 GM/dL (11.7-16.9) L 01/24/18 06:00 Hct 34.4 % (35.4-49) L 01/24/18 06:00 MCV 83.0 fl (80-96) 01/24/18 06:00 MCH 27.2 pg (25.7-33.7) 01/24/18 06:00 MCHC 32.7 g/dl (32.0-35.9) 01/24/18 06:00 RDW 16.4 % (11.9-15.9) H 01/24/18 06:00 Plt Count 203 K/MM3 (134-434) 01/24/18 06:00 MPV 10.1 fl (7.5-11.1) 01/24/18 06:00 Urine Color Maren 01/23/18 23:49 Urine Appearance Turbid 01/23/18 23:49 Urine pH 5.0 (5.0-8.0) 01/23/18 23:49 Ur Specific [place] 1.026 (1.001-1.035) 01/23/18 23:49 Urine Protein 1+ (NEGATIVE) H 01/23/18 23:49 Urine Glucose (UA) Negative (NEGATIVE) 01/23/18 23:49 Urine Ketones Negative (NEGATIVE) 01/23/18 23:49 Urine Blood Negative (NEGATIVE) 01/23/18 23:49 Urine Nitrite Negative (NEGATIVE) 01/23/18 23:49 Urine Bilirubin Negative (<2.0 mg/dL) 01/23/18 23:49 Urine Urobilinogen Negative mg/dL (0.2-1.0) 01/23/18 23:49 Ur Leukocyte Esterase Negative (NEGATIVE) 01/23/18 23:49 Urine WBC (Auto) 6 /hpf (3-5) 01/23/18 23:49 Urine RBC (Auto) 10 /hpf (0-3) 01/23/18 23:49 Urine Bacteria Rare /hpf (NONE SEEN) 01/23/18 23:49 Hyaline Casts 8 /lpf 01/23/18 23:49 Urine Mucus Many 01/23/18 23:49 OTHER LABS PENDING Assessment: 01/24/18 10:23 WITHDRAWAL SX Plan: CONTINUE DETOX INCREASE PO FLUIDS.
[2018-01-24] MEDS: PRENATAL VITAMINS W/ FOLIC ACID TABLET (FP) PO SCH (10:27)
[2018-01-24] MEDS: diazePAM 5 MG TABLET PO PRN ×3 (10:27→22:21)
[2018-01-24 10:41] LABS: CALCIUM 8.8 mg/dL (8.5-10.1); CHLORIDE 100 mmol/L (98-107); POTASSIUM 4.2 mmol/L (3.5-5.1); SODIUM 137 mmol/L (136-145)
[2018-01-24 10:47] LABS: ALBUMIN 3.6 g/dl (3.4-5.0); ALK PHOS 102 U/L (45-117); ANION GAP 11 (8-16); BILIRUBIN,TOTAL 0.3 mg/dL (0.2-1.0); BLOOD UREA NITROGEN 14 mg/dL (7-18); CO2 26 mmol/L (21-32); CREATININE 1.2 mg/dL (0.7-1.3); GLUCOSE,RANDOM 101 mg/dL (74-106); SGOT/AST 74 U/L (15-37); SGPT/ALT 143 U/L (12-78); TOT PROT 7.5 g/dl (6.4-8.2)
--- NOTE | 2018-01-24 11:30 | EKG ---
Test Reason : Blood Pressure : / mmHG Vent. Rate : 060 BPM Atrial Rate : 060 BPM P-R Int : 144 ms QRS Dur : 100 ms QT Int : 438 ms P-R-T Axes : 065 053 061 degrees QTc Int : 438 ms NORMAL SINUS RHYTHM NORMAL ECG WHEN COMPARED WITH ECG OF 03-DEC-2017 15:01, NO SIGNIFICANT CHANGE WAS FOUND Confirmed by CHEYENNE GAMINO MD ([id number]) on 01/24/2018 11:30:07 AM Referred By: Confirmed By:CHEYENNE GAMINO MD
[2018-01-24] MEDS: THIAMINE HCL 100 MG TABLET (FP) PO SCH (22:21)
[2018-01-25] MEDS: PRENATAL VITAMINS W/ FOLIC ACID TABLET (FP) PO SCH (09:36)
[2018-01-25] MEDS: diazePAM 5 MG TABLET PO PRN (09:36)
[2018-01-25 09:54] VITALS: BP 114/75; PULSE 60; TEMP 96.7
[2018-01-25] MEDS ORDERED: METHADONE HCL 5 MG TABLET (FOR DETOX USE ONLY) PO ONE (10:00)
--- NOTE | 2018-01-25 12:03 | PN ---
BHS COWS - Scale Resting Pulse: 0= [place] 80 or Below Sweatin= Chills/Flushing Restless Observation: 3= Extraneous Movement Pupil Size: 2= Moderately Dilated Bone or Joint Aches: 0= None Runny Nose/ Eye Tearin= None GI Upset > 30mins: 0= None Tremor Observation of Outstretched Hands: 1= Tremor [place], Not Seen Yawning Observation: 0= None Anxiety or Irritability: 1=Feels Anxious/Irritable Goose Flesh Skin: 0=Smooth Skin COWS Score: 8 BHS Progress Note (SOAP) Subjective: SLIGHT ANXIETY. DETOX PROCEEDING WELL. Objective: 01/25/18 12:03 Vital Signs Temperature 96.7 F L 01/25/18 09:53 Pulse Rate 60 01/25/18 09:53 Respiratory Rate 18 01/25/18 09:53 Blood Pressure 114/75 01/25/18 09:53 O2 Sat by Pulse Oximetry (%) Laboratory Last Values WBC 5.0 K/mm3 (4.0-10.0) 01/24/18 06:00 RBC 4.15 M/mm3 (4.00-5.60) 01/24/18 06:00 Hgb 11.3 GM/dL (11.7-16.9) L 01/24/18 06:00 Hct 34.4 % (35.4-49) L 01/24/18 06:00 MCV 83.0 fl (80-96) 01/24/18 06:00 MCH 27.2 pg (25.7-33.7) 01/24/18 06:00 MCHC 32.7 g/dl (32.0-35.9) 01/24/18 06:00 RDW 16.4 % (11.9-15.9) H 01/24/18 06:00 Plt Count 203 K/MM3 (134-434) 01/24/18 06:00 MPV 10.1 fl (7.5-11.1) 01/24/18 06:00 Sodium 137 mmol/L (136-145) 01/24/18 06:00 Potassium 4.2 mmol/L (3.5-5.1) 01/24/18 06:00 Chloride 100 mmol/L (98-107) 01/24/18 06:00 Carbon Dioxide 26 mmol/L (21-32) 01/24/18 06:00 Anion Gap 11 (8-16) 01/24/18 06:00 BUN 14 mg/dL (7-18) 01/24/18 06:00 Creatinine 1.2 mg/dL (0.7-1.3) D 01/24/18 06:00 Creat Clearance w eGFR > 60 (>60) 01/24/18 06:00 Random Glucose 101 mg/dL (74-106) 01/24/18 06:00 Calcium 8.8 mg/dL (8.5-10.1) 01/24/18 06:00 Total Bilirubin 0.3 mg/dL (0.2-1.0) D 01/24/18 06:00 AST 74 U/L (15-37) H D 01/24/18 06:00 ALT 143 U/L (12-78) H D 01/24/18 06:00 Alkaline Phosphatase 102 U/L (45-117) 01/24/18 06:00 Total Protein 7.5 g/dl (6.4-8.2) 01/24/18 06:00 Albumin 3.6 g/dl (3.4-5.0) 01/24/18 06:00 Urine Color [place] 01/23/18 23:49 Urine Appearance Turbid 01/23/18 23:49 Urine pH 5.0 (5.0-8.0) 01/23/18 23:49 Ur Specific [place] 1.026 (1.001-1.035) 01/23/18 23:49 Urine Protein 1+ (NEGATIVE) H 01/23/18 23:49 Urine Glucose (UA) Negative (NEGATIVE) 01/23/18 23:49 Urine Ketones Negative (NEGATIVE) 01/23/18 23:49 Urine Blood Negative (NEGATIVE) 01/23/18 23:49 Urine Nitrite Negative (NEGATIVE) 01/23/18 23:49 Urine Bilirubin Negative (<2.0 mg/dL) 01/23/18 23:49 Urine Urobilinogen Negative mg/dL (0.2-1.0) 01/23/18 23:49 Ur Leukocyte Esterase Negative (NEGATIVE) 01/23/18 23:49 Urine WBC (Auto) 6 /hpf (3-5) 01/23/18 23:49 Urine RBC (Auto) 10 /hpf (0-3) 01/23/18 23:49 Urine Bacteria Rare /hpf (NONE SEEN) 01/23/18 23:49 Hyaline Casts 8 /lpf 01/23/18 23:49 Urine Mucus Many 01/23/18 23:49 RPR Titer Nonreactive (NONREACTIVE) 01/24/18 06:00 Assessment: 01/25/18 12:03 WITHDRAWAL SX Plan: CONTINUE DETOX
--- NOTE | 2018-01-25 15:33 | PN ---
[facility] Progress Note Note: PT SIGNED OUT AMA FOR PERSONAL REASONS. DID NOT DISCLOSE TO THIS BRIDGE TENDER OTHER THAN "I FEEL FINE, I LIKE TO LEAVE". ALERT O X 3. NAD PT SIGNED AMA.
--- NOTE | 2018-01-25 15:35 | DS ---
[facility] Detox Discharge Summary Admission Date: 01/23/18 Discharge Date: 01/25/18 - History Present History: Cannabis Dependence, Cocaine Dependence, Opioid Dependence Additional Comments: PT SIGNED OUT AMA. ALERT O X 3. NAD. Pertinent Past History: PLEASE SEE DX BELOW - Physical Exam Results Vital Signs: Vital Signs Temperature 96.7 F L 01/25/18 09:53 Pulse Rate 60 01/25/18 09:53 Respiratory Rate 18 01/25/18 09:53 Blood Pressure 114/75 01/25/18 09:53 O2 Sat by Pulse Oximetry (%) Pertinent Admission Physical Exam Findings: WITHDRAWAL SX Laboratory Last Values WBC 5.0 K/mm3 (4.0-10.0) 01/24/18 06:00 RBC 4.15 M/mm3 (4.00-5.60) 01/24/18 06:00 Hgb 11.3 GM/dL (11.7-16.9) L 01/24/18 06:00 Hct 34.4 % (35.4-49) L 01/24/18 06:00 MCV 83.0 fl (80-96) 01/24/18 06:00 MCH 27.2 pg (25.7-33.7) 01/24/18 06:00 MCHC 32.7 g/dl (32.0-35.9) 01/24/18 06:00 RDW 16.4 % (11.9-15.9) H 01/24/18 06:00 Plt Count 203 K/MM3 (134-434) 01/24/18 06:00 MPV 10.1 fl (7.5-11.1) 01/24/18 06:00 Sodium 137 mmol/L (136-145) 01/24/18 06:00 Potassium 4.2 mmol/L (3.5-5.1) 01/24/18 06:00 Chloride 100 mmol/L (98-107) 01/24/18 06:00 Carbon Dioxide 26 mmol/L (21-32) 01/24/18 06:00 Anion Gap 11 (8-16) 01/24/18 06:00 BUN 14 mg/dL (7-18) 01/24/18 06:00 Creatinine 1.2 mg/dL (0.7-1.3) D 01/24/18 06:00 Creat Clearance w eGFR > 60 (>60) 01/24/18 06:00 Random Glucose 101 mg/dL (74-106) 01/24/18 06:00 Calcium 8.8 mg/dL (8.5-10.1) 01/24/18 06:00 Total Bilirubin 0.3 mg/dL (0.2-1.0) D 01/24/18 06:00 AST 74 U/L (15-37) H D 01/24/18 06:00 ALT 143 U/L (12-78) H D 01/24/18 06:00 Alkaline Phosphatase 102 U/L (45-117) 01/24/18 06:00 Total Protein 7.5 g/dl (6.4-8.2) 01/24/18 06:00 Albumin 3.6 g/dl (3.4-5.0) 01/24/18 06:00 Urine Color [place] 01/23/18 23:49 Urine Appearance Turbid 01/23/18 23:49 Urine pH 5.0 (5.0-8.0) 01/23/18 23:49 Ur Specific [place] 1.026 (1.001-1.035) 01/23/18 23:49 Urine Protein 1+ (NEGATIVE) H 01/23/18 23:49 Urine Glucose (UA) Negative (NEGATIVE) 01/23/18 23:49 Urine Ketones Negative (NEGATIVE) 01/23/18 23:49 Urine Blood Negative (NEGATIVE) 01/23/18 23:49 Urine Nitrite Negative (NEGATIVE) 01/23/18 23:49 Urine Bilirubin Negative (<2.0 mg/dL) 01/23/18 23:49 Urine Urobilinogen Negative mg/dL (0.2-1.0) 01/23/18 23:49 Ur Leukocyte Esterase Negative (NEGATIVE) 01/23/18 23:49 Urine WBC (Auto) 6 /hpf (3-5) 01/23/18 23:49 Urine RBC (Auto) 10 /hpf (0-3) 01/23/18 23:49 Urine Bacteria Rare /hpf (NONE SEEN) 01/23/18 23:49 Hyaline Casts 8 /lpf 01/23/18 23:49 Urine Mucus Many 01/23/18 23:49 RPR Titer Nonreactive (NONREACTIVE) 01/24/18 06:00 - Treatment Hospital Course: Discharged Condition Good - Medication Discharge Medications: Ambulatory Orders NK [No Known Home Medication] 12/01/17 - Diagnosis (1) Back pain Status: Chronic Qualifiers: Back pain location: low back pain Back pain laterality: midline (2) Cannabis dependence, uncomplicated Status: Acute (3) Cocaine dependence, uncomplicated Status: Acute (4) Insomnia Status: Acute Qualifiers: Insomnia type: unspecified Qualified Code(s): G47.00 - Insomnia, unspecified (5) Opioid dependence with withdrawal Status: Acute (6) Weight loss Status: Acute (7) History of Hodgkin's lymphoma Status: Inactive (8) Dehydration Status: Acute (9) Anemia Status: Chronic - AMA Did Patient Leave Against Medical Advice: Yes (AMA)
[2018-01-26] MEDS ORDERED: METHADONE HCL 5 MG TABLET (FOR DETOX USE ONLY) PO ONE (10:00)
[2018-01-27] MEDS ORDERED: METHADONE HCL 10 MG TABLET (FOR DETOX USE ONLY) PO ONE (10:00)
[2018-01-28] MEDS ORDERED: METHADONE HCL 5 MG TABLET (FOR DETOX USE ONLY) PO ONE (06:00)
== END 2018-01-25 13:34 | disposition left against medical advice (07) | DRG 770 ==
LOC: YASAS 12:15 → Y3N 20:29
PROVIDERS: ADMIT Internal Medicine; ATTEND Internal Medicine
PROC: HZ2ZZZZ Detoxification Services for Substance Abuse Treatment (ICD-10-PCS; principal; 2018-01-23)
DX: F11.23 Opioid dependence with withdrawal (principal); F14.20 Cocaine dependence, uncomplicated; F12.20 Cannabis dependence, uncomplicated; G47.00 Insomnia, unspecified; D64.9 Anemia, unspecified; M54.89 Other dorsalgia; R63.4 Abnormal weight loss; Z68.31 Body mass index [BMI] 31.0-31.9, adult; Z85.71 Personal history of Hodgkin lymphoma
CPT/HCPCS: 36415; 80053; 81003; 81015; 85027; 86593; 93005; 93010

== ENCOUNTER 2018-02-25 12:58 | Inpatient (IN) | payer OTHER ==
[2018-02-25 13:49] VITALS: BMI 22.3
--- NOTE | 2018-02-25 15:38 | HP ---
COWS - Scale Resting Pulse: 0= [place] 80 or Below Sweatin=Flushed/Facial Moisture Restless Observation: 3= Extraneous Movement Pupil Size: 2= Moderately Dilated Bone or Joint Aches: 2= Severe Diffuse Aches Runny Nose/ Eye Tearin= Runny Nose/Eyes GI Upset > 30mins: 3= Vomiting/Diarrhea Tremor Observation: 2= Slight Tremor Visible Yawning Observation: 2= >3x During Session Anxiety or Irritability: 2=Irritable/Anxious Goose Flesh Skin: 0=Smooth Skin COWS Score: 20 Admission ROS S - HPI Chief Complaint: i need help to stop using percocet and cocaine Allergies/Adverse Reactions: Allergies Allergy/AdvReac Type Severity Reaction Status Date / Time No Known Drug Allergies Allergy Verified 02/25/18 14:55 History of Present Illness: this 27 years old male with percocet and cocaine dependence,seeing detox, withdrawal symptom,last detox 01/23/18 to 01/25/18 not completed no medical problem no significant period of sobriety - Ebola screening Have you traveled outside of the country in the last 21 days: No Have you had contact with anyone from an Ebola affected area: No Have you been sick,other than usual withdrawal symptoms: No Do you have a fever: No - Review of Systems Constitutional: Chills, Loss of Appetite, Malaise, Night Sweats, Changes in sleep, Weakness, Unintentional Wgt. Loss EENT: reports: Tearing, Nose Congestion Respiratory: reports: No Symptoms reported Cardiac: reports: No Symptoms Reported GI: reports: Diarrhea, Nausea, Vomiting, Abdominal cramping : reports: No Symptoms Reported Musculoskeletal: reports: Back Pain, Muscle Pain Integumentary: reports: Dryness Neuro: reports: No Symptoms reported, Headache, Tremors Endocrine: reports: No Symptoms Reported Hematology: reports: No Symptoms Reported Psychiatric: reports: No Sypmtoms Reported, Judgement Intact, Mood/Affect Appropiate, Orientated x3 Patient History - Patient Medical History Hx Anemia: No Hx Asthma: No Hx Chronic Obstructive Pulmonary Disease (COPD): No Hx Cancer: Yes (hodgkins 2011 - chemo - in remission - sees oncologist) Hx Cardiac Disorders: No Hx Congestive Heart Failure: No Hx Hypertension: No Hx Hypercholesterolemia: No Hx Pacemaker: No HX Cerebrovascular Accident: No Hx Seizures: No Hx Dementia: No Hx Diabetes: No Hx Gastrointestinal Disorders: No Hx Liver Disease: No Hx Genitourinary Disorders: No Hx Sexually Transmitted Disorders: No Hx Renal Disease (ESRD): No Hx Thyroid Disease: No Hx Human Immunodeficiency Virus (HIV): No (last 08/10 negative) Hx Hepatitis C: No Hx Depression: No Hx Suicide Attempt: No Hx Bipolar Disorder: No Hx Schizophrenia: No Other Medical History: ni suicidal,no homicidal - Patient Surgical History Past Surgical History: Yes Hx Neurologic Surgery: No Hx Cataract Extraction: No Hx Cardiac Surgery: No Hx Lung Surgery: No Hx Breast Surgery: No Hx Breast Biopsy: No Hx Abdominal Surgery: No Hx Appendectomy: No Hx Cholecystectomy: No Hx Genitourinary Surgery: No Hx Section: No Hx Orthopedic Surgery: Yes (R hand tendon repair in 2007) Other Surgical History: R hand tendon repair in 2007 Anesthesia Reaction: No - PPD History Previous Implant?: Yes Documented Results: Negative w/proof Implanted On Prior [facility] Admission?: Yes Date: 06/21/17 Results: NEGATIVE PPD to be Administered?: No - Smoking Cessation Smoking history: Never smoked Have you smoked in the past 12 months: No Hx Chewing Tobacco Use: No - Substance & Tx. History Hx Alcohol Use: No Hx Substance Use: Yes Substance Use Type: Cocaine, Opiates Hx Substance Use Treatment: Yes (01/23/18 to 01/25/18) - Substances Abused Cocaine Route: Inhalation Frequency: 3-6 times per week Amount used: 1/2 GRAM Age of first use: 26 Date of Last Use: 02/23/18 PERCOCET Route: Oral Frequency: Daily Amount used: 150MG DAILY Age of first use: 25 Date of Last Use: 02/24/18 Family Disease History - Family Disease History Family Disease History: Other: Father (living, healthy), Mother (living, healthy ), Brother (one - living - healthy), Sister (one- living - healthy) Admission Physical Exam S - Vital Signs Vital Signs: Vital Signs - 24 hr 02/25/18 13:45 Temperature 99.1 F Pulse Rate 62 Respiratory 20 Rate Blood Pressure 131/75 - Physical General Appearance: Yes: Moderate Distress, Tremorous, Irritable, Sweating, Anxious HEENTM: Yes: Normal ENT Inspection, BRAIN, Pharynx Normal Respiratory: Yes: Within Normal Limits, Lungs Clear, Normal Breath Sounds Neck: Yes: Within Normal Limits, Supple, Trachea in good position Breast: Yes: Within Normal Limits Cardiology: Yes: Within Normal Limits, Regular Rhythm, Regular Rate, S1, S2 Abdominal: Yes: Within Normal Limits, Normal Bowel Sounds, Non Tender, Flat, Soft Genitourinary: Yes: Within Normal Limits Back: Yes: Normal Inspection, Muscle Spasm Musculoskeletal: Yes: full range of Motion, Back pain, Muscle Pain Extremities: Yes: Normal Range of Motion, Tremors 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, Alert, Motor Strength 5/5 Integumentary: Yes: Dry Lymphatic: Yes: Within Normal Limits - Diagnostic (1) Opioid dependence with withdrawal Current Visit: No Status: Acute (2) Cocaine dependence, uncomplicated Current Visit: No Status: Acute (3) Weight loss Current Visit: No Status: Acute (4) Dehydration Current Visit: No Status: Acute (5) History of Hodgkin's lymphoma Current Visit: No Status: Inactive Cleared for Admission [facility] - Detox or Rehab [facility] Level of Care: Medically Managed Detox Regimen/Protocol: Methadone [facility] Breath Alcohol Content Breath Alcohol Content: 0 Urine Drug Screen - Results Drug Screen Negative: No Urine Drug Screen Results: THC-Marijuana, TARSHA-Cocaine, OPI-Opiates
[2018-02-25] MEDS ORDERED: MAGNESIUM CITRATE 300 ML BOTTLE PO PRN (15:56)
[2018-02-25] MEDS ORDERED: guaiFENesin/D-METHORPHAN HB 10 ML UNIT-DOSE CUPS PO PRN (15:56)
[2018-02-25] MEDS ORDERED: IBUPROFEN 400 MG TABLET (FP) PO PRN (15:56)
[2018-02-25] MEDS ORDERED: P-EPHED 60MG/TRIPROLIDI 2.5MG TABLET PO PRN (15:56)
[2018-02-25] MEDS ORDERED: MAG HYDROX/AL HYDROX/SIMETH 30 ML UNIT-DOSE CUP PO PRN (15:56)
[2018-02-25] MEDS ORDERED: ACETAMINOPHEN 325 MG TABLET (FP) PO PRN (15:56)
[2018-02-25] MEDS ORDERED: hydrOXYzine PAMOATE 25 MG CAPSULE (FP) PO PRN (15:56)
[2018-02-25] MEDS ORDERED: LOPERAMIDE HCL 2 MG CAPSULE PO PRN (15:56)
[2018-02-25] MEDS ORDERED: MENTHOL/PHENOL 1 EACH UD MM PRN (15:56)
[2018-02-25] MEDS ORDERED: MAGNESIUM HYDROX 2400MG/30ML ORAL SUSPENSION 30 ML CUP PO PRN (15:56)
[2018-02-25] MEDS ORDERED: METHADONE HCL 10 MG TABLET (FOR DETOX USE ONLY) PO ONE ×2 (16:45→23:00)
[2018-02-25] MEDS: diazePAM 5 MG TABLET PO PRN (17:48)
[2018-02-25] MEDS ORDERED: MELATONIN 5 MG TABLETS PO PRN (22:00)
[2018-02-25] MEDS: THIAMINE HCL 100 MG TABLET (FP) PO SCH (22:10)
[2018-02-25] MEDS: cloNIDine HCL 0.1 MG TABLET PO SCH (22:10)
[2018-02-26 01:51] LABS: URINE APPEARANCE CLEAR; URINE BILIRUBIN NEGATIVE (<2.0 mg/dL); URINE BLOOD NEGATIVE (NEGATIVE); URINE COLOR YELLOW; URINE GLUCOSE (UA) 1+ (NEGATIVE); URINE KETONE NEGATIVE (NEGATIVE); URINE LEUK ESTERASE NEGATIVE (NEGATIVE); URINE NITRITE NEGATIVE (NEGATIVE); URINE PROTEIN NEGATIVE (NEGATIVE); URINE UROBILINOGEN NEGATIVE mg/dL (0.2-1.0)
--- NOTE | 2018-02-26 09:09 | CONSULT ---
[facility] Psychiatric Consult - Data Date of interview: 02/26/18 Admission source: [facility] Identifying data: Patient is a 27 year old single male without kids, unemployed , supported and living with mother. This is one of multiple admissions for patient. Pt. admitted to for opiate dependence. Substance Abuse History: Smoking Cessation. Smoking history: Never smoked. Have you smoked in the past 12 months: No. Hx Chewing Tobacco Use: No. - Substance & Tx. History. Hx Alcohol Use: No. Hx Substance Use: Yes. Substance Use Type: Cocaine, Opiates. Hx Substance Use Treatment: Yes ( to 01/25/18). - Substances Abused. Cocaine. Route: Inhalation. Frequency: 3-6 times per week. Amount used: 1/2 GRAM. Age of first use: 26. Date of Last Use: 02/23/18. PERCOCET. Route: Oral. Frequency: Daily. Amount used: 150MG DAILY. Age of first use: 25. Date of Last Use: 02/24/18 Medical History: hodgkins 2011 - chemo - in remission - sees oncologist Psychiatric History: Patient denies h/o psychiatric hospitalizations, outpatient care, and suicide attempt. Physical/Sexual Abuse/Trauma History: Denies. Mental Status Exam - Mental Status Exam Alert and Oriented to: Time, Place, Person Cognitive Function: Good Patient Appearance: Well Groomed Mood: Hopeful Affect: Mood Congruent Patient Behavior: Appropriate, Cooperative Speech Pattern: Clear, Appropriate Voice Loudness: Normal Thought Process: Intact, Goal Oriented Thought Disorder: Not Present Hallucinations: Denies Suicidal Ideation: Denies Homicidal Ideation: Denies Insight/Judgement: Poor Sleep: Fair Appetite: Good Muscle strength/Tone: Normal Gait/Station: Normal Psychiatric Findings - Problem List ([place] 1, 2,3) (1) Cannabis dependence, uncomplicated Current Visit: Yes Status: Chronic (2) Cocaine dependence, uncomplicated Current Visit: Yes Status: Chronic (3) Opioid dependence with withdrawal Current Visit: Yes Status: Acute - Initial Treatment Plan Initial Treatment Plan: Psychoeducation provided. Detoxification in progress. Observation.
[2018-02-26] MEDS ORDERED: METHADONE HCL 10 MG TABLET (FOR DETOX USE ONLY) PO ONE (10:00)
[2018-02-26 10:17] LABS: HEMOGLOBIN 12.5 GM/dL (11.7-16.9); MCH 27.5 pg (25.7-33.7); MCHC 32.9 g/dl (32.0-35.9); MEAN CELL VOLUME 83.7 fl (80-96); RBC 4.54 M/mm3 (4.00-5.60); RDW 15.3 % (11.9-15.9); WHITE BLOOD COUNT 2.8 K/mm3 (4.0-10.0)
[2018-02-26] MEDS: CYCLOBENZAPRINE HCL 10 MG TABLET (FP) PO PRN ×2 (10:46→22:11)
[2018-02-26] MEDS: diazePAM 5 MG TABLET PO PRN ×2 (10:46→22:11)
[2018-02-26] MEDS: PRENATAL VITAMINS W/ FOLIC ACID TABLET (FP) PO SCH (10:46)
[2018-02-26] MEDS: cloNIDine HCL 0.1 MG TABLET PO SCH ×2 (10:46→22:12)
--- NOTE | 2018-02-26 11:51 | PN ---
S COWS - Scale Resting Pulse: 0= [place] 80 or Below Sweatin= Chills/Flushing Restless Observation: 3= Extraneous Movement Pupil Size: 1= Pupils >than Normal Bone or Joint Aches: 2= Severe Diffuse Aches Runny Nose/ Eye Tearin= Runny Nose/Eyes GI Upset > 30mins: 2= Nausea/Diarrhea Tremor Observation of Outstretched Hands: 2= Slight Tremor Visible Yawning Observation: 1= 1-2x During Session Anxiety or Irritability: 2=Irritable/Anxious Goose Flesh Skin: 0=Smooth Skin COWS Score: 16 S Progress Note (SOAP) Subjective: alert,irritable,anxious,interrupted sleep,pain in the body,tremor Objective: 02/26/18 11:48 Vital Signs Temperature 98.1 F 02/26/18 09:22 Pulse Rate 58 L 02/26/18 09:22 Respiratory Rate 18 02/26/18 09:22 Blood Pressure 119/73 02/26/18 09:22 O2 Sat by Pulse Oximetry (%) ekg sinus bradycardia 57/min qt 432/420 no chest pain,no sob,no dizziness Laboratory Last Values WBC 2.8 K/mm3 (4.0-10.0) L D 02/26/18 07:30 RBC 4.54 M/mm3 (4.00-5.60) 02/26/18 07:30 Hgb 12.5 GM/dL (11.7-16.9) D 02/26/18 07:30 Hct 38.0 % (35.4-49) 02/26/18 07:30 MCV 83.7 fl (80-96) 02/26/18 07:30 MCH 27.5 pg (25.7-33.7) 02/26/18 07:30 MCHC 32.9 g/dl (32.0-35.9) 02/26/18 07:30 RDW 15.3 % (11.9-15.9) 02/26/18 07:30 Urine Color Yellow 02/25/18 Unknown Urine Appearance Clear 02/25/18 Unknown Urine pH 5.0 (5.0-8.0) 02/25/18 Unknown Ur Specific [place] 1.015 (1.001-1.035) 02/25/18 Unknown Urine Protein Negative (NEGATIVE) 02/25/18 Unknown Urine Glucose (UA) 1+ (NEGATIVE) H 02/25/18 Unknown Urine Ketones Negative (NEGATIVE) 02/25/18 Unknown Urine Blood Negative (NEGATIVE) 02/25/18 Unknown Urine Nitrite Negative (NEGATIVE) 02/25/18 Unknown Urine Bilirubin Negative (<2.0 mg/dL) 02/25/18 Unknown Urine Urobilinogen Negative mg/dL (0.2-1.0) 02/25/18 Unknown Ur Leukocyte Esterase Negative (NEGATIVE) 02/25/18 Unknown labs pending Assessment: 02/26/18 11:50 continue detox Plan: continue detox,repeat cbc in am
[2018-02-26 12:07] LABS: ALBUMIN 3.4 g/dl (3.4-5.0); ALK PHOS 104 U/L (45-117); ANION GAP 6 (8-16); BLOOD UREA NITROGEN 10 mg/dL (7-18); CHLORIDE 104 mmol/L (98-107); CO2 30 mmol/L (21-32); GLUCOSE,RANDOM 81 mg/dL (74-106); POTASSIUM 4.7 mmol/L (3.5-5.1); SGOT/AST 83 U/L (15-37); SGPT/ALT 171 U/L (12-78); SODIUM 140 mmol/L (136-145); TOT PROT 7.5 g/dl (6.4-8.2)
[2018-02-26 12:13] LABS: BILIRUBIN,TOTAL 0.4 mg/dL (0.2-1.0)
--- NOTE | 2018-02-26 18:00 | EKG ---
Test Reason : Blood Pressure : / mmHG Vent. Rate : 057 BPM Atrial Rate : 057 BPM P-R Int : 138 ms QRS Dur : 094 ms QT Int : 432 ms P-R-T Axes : 068 049 059 degrees QTc Int : 420 ms SINUS BRADYCARDIA INCOMPLETE RIGHT BUNDLE BRANCH BLOCK BORDERLINE ECG WHEN COMPARED WITH ECG OF 23-JAN-2018 21:14, NO SIGNIFICANT CHANGE WAS FOUND Confirmed by MD BYRON, SEN ([id number]) on 02/26/2018 5:59:59 PM Referred By: Confirmed By:SEN MATTHEWS MD
[2018-02-26] MEDS: THIAMINE HCL 100 MG TABLET (FP) PO SCH (22:11)
[2018-02-27] MEDS ORDERED: METHADONE HCL 5 MG TABLET (FOR DETOX USE ONLY) PO ONE (10:00)
[2018-02-27] MEDS: PRENATAL VITAMINS W/ FOLIC ACID TABLET (FP) PO SCH (10:05)
[2018-02-27] MEDS: cloNIDine HCL 0.1 MG TABLET PO SCH ×2 (10:05→22:50)
[2018-02-27] MEDS: diazePAM 5 MG TABLET PO PRN ×2 (10:05→22:50)
--- NOTE | 2018-02-27 11:49 | PN ---
BHS COWS - Scale Resting Pulse: 0= [place] 80 or Below Sweatin= Chills/Flushing Restless Observation: 3= Extraneous Movement Pupil Size: 1= Pupils >than Normal Bone or Joint Aches: 2= Severe Diffuse Aches Runny Nose/ Eye Tearin= Runny Nose/Eyes GI Upset > 30mins: 2= Nausea/Diarrhea Tremor Observation of Outstretched Hands: 2= Slight Tremor Visible Yawning Observation: 1= 1-2x During Session Anxiety or Irritability: 2=Irritable/Anxious Goose Flesh Skin: 0=Smooth Skin COWS Score: 16 BHS Progress Note (SOAP) Subjective: alert,irritable,anxious,interrupted sleep,pain in the body,back Objective: 02/27/18 11:47 Vital Signs Temperature 97.2 F L 02/27/18 09:40 Pulse Rate 56 L 02/27/18 09:40 Respiratory Rate 18 02/27/18 09:40 Blood Pressure 105/65 02/27/18 09:40 O2 Sat by Pulse Oximetry (%) Assessment: 02/27/18 11:49 withdrawal symptom Plan: continue detox,repeat cbc in am
[2018-02-27] MEDS: THIAMINE HCL 100 MG TABLET (FP) PO SCH (22:50)
[2018-02-28] MEDS ORDERED: METHADONE HCL 5 MG TABLET (FOR DETOX USE ONLY) PO ONE (10:00)
[2018-02-28 10:36] LABS: HEMATOCRIT 39.8 % (35.4-49); HEMOGLOBIN 13.1 GM/dL (11.7-16.9); MCH 27.4 pg (25.7-33.7); MEAN CELL VOLUME 83.2 fl (80-96); RBC 4.79 M/mm3 (4.00-5.60); RDW 14.9 % (11.9-15.9); WHITE BLOOD COUNT 2.9 K/mm3 (4.0-10.0)
[2018-02-28] MEDS: PRENATAL VITAMINS W/ FOLIC ACID TABLET (FP) PO SCH (10:46)
[2018-02-28] MEDS: cloNIDine HCL 0.1 MG TABLET PO SCH ×2 (10:46→22:06)
--- NOTE | 2018-02-28 11:12 | PN ---
[facility] Progress Note (SOAP) Subjective: alert,irritable,anxious,interrupted sleep Objective: 02/28/18 11:08 Vital Signs Temperature 97.3 F L 02/28/18 09:18 Pulse Rate 75 02/28/18 09:18 Respiratory Rate 18 02/28/18 09:18 Blood Pressure 117/81 02/28/18 09:18 O2 Sat by Pulse Oximetry (%) 02/28/18 11:09 Laboratory Results - last 24 hr 02/26/18 02/28/18 07:30 08:00 WBC 2.9 L RBC 4.79 Hgb 13.1 Hct 39.8 MCV 83.2 MCH 27.4 MCHC 33.0 RDW 14.9 RPR Titer Nonreactive Assessment: 02/28/18 11:09 withdrawal symptom Plan: continue detox,leukopenia,remission from hodgekin's
[2018-02-28] MEDS: THIAMINE HCL 100 MG TABLET (FP) PO SCH (22:07)
[2018-02-28 22:30] VITALS: BP 113/66
[2018-03-01 06:43] VITALS: PULSE 54; TEMP 96.8
--- NOTE | 2018-03-01 09:43 | PN ---
S Progress Note (SOAP) Subjective: alert,no complaint Objective: 03/01/18 09:56 Vital Signs Temperature 96.8 F L 03/01/18 06:00 Pulse Rate 54 L 03/01/18 06:00 Respiratory Rate 18 03/01/18 06:00 Blood Pressure 113/66 03/01/18 06:00 O2 Sat by Pulse Oximetry (%) Assessment: 03/01/18 09:57 patient is stable for discharge today Plan: follow up with after care program as arrangement
[2018-03-01] MEDS ORDERED: METHADONE HCL 10 MG TABLET (FOR DETOX USE ONLY) PO ONE (10:00)
--- NOTE | 2018-03-01 10:06 | DS ---
[facility] Detox Discharge Summary Admission Date: 02/25/18 Discharge Date: 03/01/18 - History Present History: Cocaine Dependence, Opioid Dependence Additional Comments: follow up with pmd for leukopenia,for hodgkin's lymphoma Pertinent Past History: weight loss history of hodgkin's - Physical Exam Results Vital Signs: Vital Signs Temperature 96.8 F L 03/01/18 06:00 Pulse Rate 54 L 03/01/18 06:00 Respiratory Rate 18 03/01/18 06:00 Blood Pressure 113/66 03/01/18 06:00 O2 Sat by Pulse Oximetry (%) Pertinent Admission Physical Exam Findings: withdrawal signs and symptom Vital Signs Temperature 96.8 F L 03/01/18 06:00 Pulse Rate 54 L 03/01/18 06:00 Respiratory Rate 18 03/01/18 06:00 Blood Pressure 113/66 03/01/18 06:00 O2 Sat by Pulse Oximetry (%) Laboratory Last Values WBC 2.9 K/mm3 (4.0-10.0) L 02/28/18 08:00 RBC 4.79 M/mm3 (4.00-5.60) 02/28/18 08:00 Hgb 13.1 GM/dL (11.7-16.9) 02/28/18 08:00 Hct 39.8 % (35.4-49) 02/28/18 08:00 MCV 83.2 fl (80-96) 02/28/18 08:00 MCH 27.4 pg (25.7-33.7) 02/28/18 08:00 MCHC 33.0 g/dl (32.0-35.9) 02/28/18 08:00 RDW 14.9 % (11.9-15.9) 02/28/18 08:00 Plt Count K/MM3 (134-434) 02/28/18 08:00 Platelet Comment Mod plt clumping 02/28/18 08:00 Sodium 140 mmol/L (136-145) 02/26/18 07:30 Potassium 4.7 mmol/L (3.5-5.1) 02/26/18 07:30 Chloride 104 mmol/L (98-107) 02/26/18 07:30 Carbon Dioxide 30 mmol/L (21-32) 02/26/18 07:30 Anion Gap 6 (8-16) L 02/26/18 07:30 BUN 10 mg/dL (7-18) D 02/26/18 07:30 Creatinine 1.0 mg/dL (0.7-1.3) 02/26/18 07:30 Creat Clearance w eGFR > 60 (>60) 02/26/18 07:30 Random Glucose 81 mg/dL (74-106) 02/26/18 07:30 Calcium 9.0 mg/dL (8.5-10.1) 02/26/18 07:30 Total Bilirubin 0.4 mg/dL (0.2-1.0) D 02/26/18 07:30 AST 83 U/L (15-37) H 02/26/18 07:30 ALT 171 U/L (12-78) H 02/26/18 07:30 Alkaline Phosphatase 104 U/L (45-117) 02/26/18 07:30 Total Protein 7.5 g/dl (6.4-8.2) 02/26/18 07:30 Albumin 3.4 g/dl (3.4-5.0) 02/26/18 07:30 Urine Color Yellow 02/25/18 Unknown Urine Appearance Clear 02/25/18 Unknown Urine pH 5.0 (5.0-8.0) 02/25/18 Unknown Ur Specific [place] 1.015 (1.001-1.035) 02/25/18 Unknown Urine Protein Negative (NEGATIVE) 02/25/18 Unknown Urine Glucose (UA) 1+ (NEGATIVE) H 02/25/18 Unknown Urine Ketones Negative (NEGATIVE) 02/25/18 Unknown Urine Blood Negative (NEGATIVE) 02/25/18 Unknown Urine Nitrite Negative (NEGATIVE) 02/25/18 Unknown Urine Bilirubin Negative (<2.0 mg/dL) 02/25/18 Unknown Urine Urobilinogen Negative mg/dL (0.2-1.0) 02/25/18 Unknown Ur Leukocyte Esterase Negative (NEGATIVE) 02/25/18 Unknown RPR Titer Nonreactive (NONREACTIVE) 02/26/18 07:30 - Treatment Hospital Course: Detox Protocol Followed, Detoxed Safely, Responded well, Discharged Condition Good Patient has Accepted a Rehab Referral to: declined - Medication Discharge Medications: Ambulatory Orders NK [No Known Home Medication] 12/01/17 - Diagnosis (1) Opioid dependence with withdrawal Current Visit: Yes Status: Acute (2) Cocaine dependence, uncomplicated Current Visit: Yes Status: Chronic (3) Weight loss Current Visit: No Status: Acute (4) Dehydration Current Visit: No Status: Acute (5) History of Hodgkin's lymphoma Current Visit: No Status: Inactive - AMA Did Patient Leave Against Medical Advice: No
[2018-03-02] MEDS ORDERED: METHADONE HCL 5 MG TABLET (FOR DETOX USE ONLY) PO ONE (06:00)
== END 2018-03-01 10:10 | disposition home or self-care (01) | DRG 773 ==
LOC: YASAS 12:58 → Y6N 15:48
PROVIDERS: ADMIT Surgery; ATTEND Surgery
PROC: HZ2ZZZZ Detoxification Services for Substance Abuse Treatment (ICD-10-PCS; principal; 2018-02-25)
DX: F11.23 Opioid dependence with withdrawal (principal); F14.20 Cocaine dependence, uncomplicated; F12.20 Cannabis dependence, uncomplicated; E86.0 Dehydration; Z85.71 Personal history of Hodgkin lymphoma; D72.829 Elevated white blood cell count, unspecified; R00.1 Bradycardia, unspecified; Z92.21 Personal history of antineoplastic chemotherapy; Z87.898 Personal history of other specified conditions
CPT/HCPCS: 36415; 80053; 81003; 85027; 86593; 93005; 93010; J0735

== ENCOUNTER 2018-06-19 16:35 | Inpatient (IN) | payer OTHER ==
[2018-06-19 17:21] VITALS: BMI 22.3
--- NOTE | 2018-06-19 19:56 | HP ---
COWS - Scale Resting Pulse: 0= [place] 80 or Below Sweatin= Chills/Flushing Restless Observation: 1= Difficult to Sit Still Pupil Size: 0= Normal to Room Light Bone or Joint Aches: 4=Acute Joint/Muscle Pain Runny Nose/ Eye Tearin= None GI Upset > 30mins: 2= Nausea/Diarrhea Tremor Observation: 0= None Yawning Observation: 0= None Anxiety or Irritability: 2=Irritable/Anxious Goose Flesh Skin: 0=Smooth Skin COWS Score: 10 Admission [facility] Chief Complaint: C/O WITHDRAWAL SX'S. SEEKING DETOX FRO OPIOID DEPENDENCE Allergies/Adverse Reactions: Allergies Allergy/AdvReac Type Severity Reaction Status Date / Time No Known Drug Allergies Allergy Verified 06/19/18 18:14 History of Present Illness: 27 Y.O. MALE WITH OPIOID AND COCAINE DEPENDENCE SINCE THE AGE OF 25 HERE FOR DETOX. CLIENT IS KNOWN TO THIS PROGRAM WITH MULTIPLE PAST ADMISSIONS FOR DETOX. LAST HERE 02/2018. SELF REFERRED.REPORTS LONGEST CLEAN TIME 2 MONTHS. DENIES HX/O DRUG OVERDOSES, SEIZURE D/O, BLACK OUTS. HE ALSO DENIES PAST/ PRESENT SI/HI. HE IS CURRENTLY DEPENDENT ON HEROIN, PERCOCETS AND COCAINE PMHX- HX/O HODGKINS LYMPHOMA PSYCH- DENIES- REFUSING PSYCH SERVICES Exam Limitations: No Limitations - Ebola screening Have you traveled outside of the country in the last 21 days: No (N) Have you had contact with anyone from an Ebola affected area: No Have you been sick,other than usual withdrawal symptoms: No Do you have a fever: No - Review of Systems Constitutional: Chills, Loss of Appetite, Malaise, Night Sweats, Changes in sleep EENT: reports: No Symptoms Reported Respiratory: reports: No Symptoms reported Cardiac: reports: No Symptoms Reported GI: reports: Diarrhea, Poor Appetite, Abdominal cramping : reports: No Symptoms Reported Musculoskeletal: reports: Back Pain, Joint Pain, Muscle Pain Integumentary: reports: No Symptoms Reported Neuro: reports: No Symptoms reported Endocrine: reports: No Symptoms Reported Hematology: reports: No Symptoms Reported Psychiatric: reports: No Sypmtoms Reported Other Systems: Reviewed and Negative Patient History - Patient Medical History Hx Anemia: No Hx Asthma: No Hx Chronic Obstructive Pulmonary Disease (COPD): No Hx Cancer: Yes (hodgkins 2010 - chemo - in remission - sees oncologist) Hx Cardiac Disorders: No Hx Congestive Heart Failure: No Hx Hypertension: No Hx Hypercholesterolemia: No Hx Pacemaker: No HX Cerebrovascular Accident: No Hx Seizures: No Hx Dementia: No Hx Diabetes: No Hx Gastrointestinal Disorders: No Hx Liver Disease: No Hx Genitourinary Disorders: No Hx Sexually Transmitted Disorders: No Hx Renal Disease (ESRD): No Hx Thyroid Disease: No Hx Human Immunodeficiency Virus (HIV): No Hx Hepatitis C: No Hx Depression: No Hx Suicide Attempt: No Hx Bipolar Disorder: No Hx Schizophrenia: No Other Medical History: DENIES - Patient Surgical History Past Surgical History: Yes Hx Neurologic Surgery: No Hx Cataract Extraction: No Hx Cardiac Surgery: No Hx Lung Surgery: No Hx Breast Surgery: No Hx Breast Biopsy: No Hx Abdominal Surgery: No Hx Appendectomy: No Hx Cholecystectomy: No Hx Genitourinary Surgery: No Hx Section: No Hx Orthopedic Surgery: Yes (R hand tendon repair in 2007) Other Surgical History: R hand tendon repair in 2007 Anesthesia Reaction: No - PPD History Previous Implant?: Yes Documented Results: Negative w/proof Implanted On Prior [facility] Admission?: Yes Date: 06/21/17 Results: NEGATIVE PPD to be Administered?: Yes - Smoking Cessation Smoking history: Never smoked Have you smoked in the past 12 months: No Cigars Per Day: 0 Hx Chewing Tobacco Use: No Initiated information on smoking cessation: No - Substance & Tx. History Hx Alcohol Use: No Hx Substance Use: Yes Substance Use Type: Cocaine, Heroin, Opiates (PERCOCETS) Hx Substance Use Treatment: Yes ([facility]) - Substances Abused Percoet Route: Oral Frequency: Daily Amount used: 150mg Age of first use: 25 Date of Last Use: 06/18/18 HERION Route: SNIFF Frequency: 1-2 times per week Amount used: 1/2 GM Age of first use: 26 Date of Last Use: 06/17/18 COCAINE Route: Inhalation Frequency: 3-6 times per week Amount used: 1/2 GM Age of first use: 26 Date of Last Use: 06/16/18 Family Disease History - Family Disease History Family Disease History: Other: Father (living, healthy), Mother (living, healthy ), Brother (one - living - healthy), Sister (one- living - healthy) Admission Physical Exam BHS - Vital Signs Vital Signs: Vital Signs - 24 hr 06/19/18 17:19 Temperature 97.8 F Pulse Rate 73 Respiratory 18 Rate Blood Pressure 120/73 - Physical General Appearance: Yes: Thin, Other (LAYERED CLOTHING) HEENTM: Yes: EOMI, Normocephalic, Normal Voice, BRAIN, Pharynx Normal Respiratory: Yes: Chest Non-Tender, Lungs Clear, Normal Breath Sounds, No Respiratory Distress, No Accessory Muscle Use Neck: Yes: No masses,lesions,Nodules, Supple, Trachea in good position Breast: Yes: Breast Exam Deferred Cardiology: Yes: Regular Rhythm, Regular Rate, S1, S2 Abdominal: Yes: Normal Bowel Sounds, Non Tender, Flat, Soft Genitourinary: Yes: Other (NO C/O) Back: Yes: Normal Inspection Musculoskeletal: Yes: full range of Motion, Gait Steady, Back pain (C/O), Muscle Pain (C/O) Extremities: Yes: Normal Capillary Refill, Normal Range of Motion, Non-Tender 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 intact, Fully Oriented, Alert, Motor Strength 5/5 Integumentary: Yes: Dry, Warm Lymphatic: Yes: Within Normal Limits - Diagnostic (1) Insomnia Current Visit: Yes Status: Chronic Qualifiers: Insomnia type: drug-induced Qualified Code(s): F19.982 - Other psychoactive substance use, unspecified with psychoactive substance-induced sleep disorder (2) Opioid dependence with withdrawal Current Visit: Yes Status: Acute (3) Back pain Current Visit: Yes Status: Acute Qualifiers: Back pain location: low back pain Back pain laterality: midline (4) Cocaine dependence, uncomplicated Current Visit: Yes Status: Chronic Cleared for Admission [facility] - Detox or Rehab [facility] Level of Care: Medically Managed Detox Regimen/Protocol: Methadone Claeared for Rehab Admission: No [facility] Breath Alcohol Content Breath Alcohol Content: 0 Urine Drug Screen - Results Drug Screen Negative: No Urine Drug Screen Results: TARSHA-Cocaine, OPI-Opiates, OXY-Oxycodone, FEN-Fentanyl
[2018-06-19] MEDS ORDERED: LOPERAMIDE HCL 2 MG CAPSULE PO PRN (20:06)
[2018-06-19] MEDS ORDERED: MENTHOL/PHENOL 1 EACH UD MM PRN (20:06)
[2018-06-19] MEDS ORDERED: guaiFENesin/D-METHORPHAN HB 10 ML UNIT-DOSE CUPS PO PRN (20:06)
[2018-06-19] MEDS ORDERED: ACETAMINOPHEN 325 MG TABLET (FP) PO PRN (20:06)
[2018-06-19] MEDS ORDERED: MAGNESIUM CITRATE 300 ML BOTTLE PO PRN (20:06)
[2018-06-19] MEDS ORDERED: MAGNESIUM HYDROX 2400MG/30ML ORAL SUSPENSION 30 ML CUP PO PRN (20:06)
[2018-06-19] MEDS ORDERED: METHADONE HCL 10 MG TABLET (FOR DETOX USE ONLY) PO ONE ×2 (20:06→23:00)
[2018-06-19] MEDS ORDERED: IBUPROFEN 400 MG TABLET (FP) PO PRN (20:06)
[2018-06-19] MEDS ORDERED: P-EPHED 60MG/TRIPROLIDI 2.5MG TABLET PO PRN (20:06)
[2018-06-19] MEDS ORDERED: MAG HYDROX/AL HYDROX/SIMETH 30 ML UNIT-DOSE CUP PO PRN (20:06)
[2018-06-19] MEDS: diazePAM 5 MG TABLET PO PRN (21:03)
[2018-06-19] MEDS: THIAMINE HCL 100 MG TABLET (FP) PO SCH (21:04)
[2018-06-19] MEDS ORDERED: MELATONIN 5 MG TABLETS PO PRN (22:00)
[2018-06-19 23:46] LABS: URINE APPEARANCE CLEAR; URINE BILIRUBIN NEGATIVE (<2.0 mg/dL); URINE COLOR AMBER; URINE GLUCOSE (UA) NEGATIVE (NEGATIVE); URINE KETONE NEGATIVE (NEGATIVE); URINE LEUK ESTERASE NEGATIVE (NEGATIVE); URINE NITRITE NEGATIVE (NEGATIVE); URINE PROTEIN NEGATIVE (NEGATIVE); URINE UROBILINOGEN NEGATIVE mg/dL (0.2-1.0)
--- NOTE | 2018-06-20 09:39 | EKG ---
Test Reason : Blood Pressure : / mmHG Vent. Rate : 066 BPM Atrial Rate : 066 BPM P-R Int : 124 ms QRS Dur : 098 ms QT Int : 420 ms P-R-T Axes : -02 038 062 degrees QTc Int : 440 ms NORMAL SINUS RHYTHM NORMAL ECG WHEN COMPARED WITH ECG OF 25-FEB-2018 17:27, INCOMPLETE RIGHT BUNDLE BRANCH BLOCK IS NO LONGER PRESENT Confirmed by CHEYENNE GAMINO MD ([id number]) on 06/20/2018 9:38:55 AM Referred By: Confirmed By:CHEYENNE GAMINO MD
[2018-06-20] MEDS ORDERED: METHADONE HCL 10 MG TABLET (FOR DETOX USE ONLY) PO ONE (10:00)
[2018-06-20] MEDS: PRENATAL VITAMINS W/ FOLIC ACID TABLET (FP) PO SCH (10:37)
[2018-06-20] MEDS: diazePAM 5 MG TABLET PO PRN ×2 (10:37→20:45)
--- NOTE | 2018-06-20 13:39 | PN ---
BHS COWS - Scale Resting Pulse: 0= [place] 80 or Below Sweatin= No chills or Flushing Restless Observation: 0= Sits Still Pupil Size: 0= Normal to Room Light Bone or Joint Aches: 1= Mild Discomfort Runny Nose/ Eye Tearin= None GI Upset > 30mins: 0= None Tremor Observation of Outstretched Hands: 0= None Yawning Observation: 0= None Anxiety or Irritability: 0= None Goose Flesh Skin: 0=Smooth Skin COWS Score: 1 BHS Progress Note (SOAP) Subjective: Patient c/o mild discomfort. Objective: 06/20/18 13:38 Laboratory Tests 06/19/18 21:39 Urine Color [place] Urine Appearance Clear Urine pH 5.0 Ur Specific [place] 1.023 Urine Protein Negative Urine Glucose (UA) Negative Urine Ketones Negative Urine Blood Negative Urine Nitrite Negative Urine Bilirubin Negative Urine Urobilinogen Negative Ur Leukocyte Esterase Negative Vital Signs Temperature 98.2 F 06/20/18 09:01 Pulse Rate 59 L 06/20/18 09:01 Respiratory Rate 18 06/20/18 09:01 Blood Pressure 108/60 06/20/18 09:01 O2 Sat by Pulse Oximetry (%) PE: alert and oriented x 3 skin warm and dry car s1s2 resp cta bl ext no edema, full rom Assessment: 06/20/18 13:38 withdrawal syndrome Plan: continue detox as ordered encourage oral fluids continue to monitor
[2018-06-20] MEDS: THIAMINE HCL 100 MG TABLET (FP) PO SCH (22:19)
[2018-06-21] MEDS: diazePAM 5 MG TABLET PO PRN ×3 (05:45→22:11)
[2018-06-21] MEDS ORDERED: METHADONE HCL 5 MG TABLET (FOR DETOX USE ONLY) PO ONE (10:00)
[2018-06-21] MEDS: PRENATAL VITAMINS W/ FOLIC ACID TABLET (FP) PO SCH (10:29)
--- NOTE | 2018-06-21 11:14 | PN ---
BHS COWS - Scale Resting Pulse: 0= [place] 80 or Below Sweatin=Flushed/Facial Moisture Restless Observation: 1= Difficult to Sit Still Pupil Size: 0= Normal to Room Light Bone or Joint Aches: 2= Severe Diffuse Aches Runny Nose/ Eye Tearin= Nasal Congestion GI Upset > 30mins: 1= Stomach Cramp Tremor Observation of Outstretched Hands: 1= Tremor [place], Not Seen Yawning Observation: 2= >3x During Session Anxiety or Irritability: 2=Irritable/Anxious Goose Flesh Skin: 0=Smooth Skin COWS Score: 12 BHS Progress Note (SOAP) Subjective: irritable agitation sweats shakes diarrhea muscle aches Objective: 06/21/18 11:13 Vital Signs Temperature 97.5 F L 06/21/18 09:25 Pulse Rate 54 L 06/21/18 09:25 Respiratory Rate 18 06/21/18 09:25 Blood Pressure 109/61 06/21/18 09:25 O2 Sat by Pulse Oximetry (%) Laboratory Tests 06/19/18 21:39 Urine Color [place] Urine Appearance Clear Urine pH 5.0 Ur Specific [place] 1.023 Urine Protein Negative Urine Glucose (UA) Negative Urine Ketones Negative Urine Blood Negative Urine Nitrite Negative Urine Bilirubin Negative Urine Urobilinogen Negative Ur Leukocyte Esterase Negative rest of labs pending [id number] ambulating no acute distress Assessment: 06/21/18 11:14 withdrawal sx Plan: continue detox increase fluids labs pending
[2018-06-21] MEDS: THIAMINE HCL 100 MG TABLET (FP) PO SCH (22:10)
--- NOTE | 2018-06-22 08:50 | DS ---
[facility] Detox Discharge Summary Admission Date: 06/19/18 Discharge Date: 06/22/18 - History Present History: Opioid Dependence Additional Comments: Patient leaving AMA. Reports has a family emergency and needs to leave now and will follow up on Sunday06/24/18 at [facility] for rehab. Patient denies suicidal / homicidal ideation. Medically stable. Patient educated on the risk of not completing treatment which include relapse, overdose and even .If worsening symptoms are present patient to follow up with the emergency department. Patient verbalizes understanding. Pertinent Past History: Vital Signs Temperature 97.3 F L 06/22/18 07:20 Pulse Rate 55 L 06/22/18 07:20 Respiratory Rate 18 06/22/18 07:20 Blood Pressure 114/58 L 06/22/18 07:20 O2 Sat by Pulse Oximetry (%) Laboratory Last Values Urine Color [place] 06/19/18 21:39 Urine Appearance Clear 06/19/18 21:39 Urine pH 5.0 (5.0-8.0) 06/19/18 21:39 Ur Specific [place] 1.023 (1.001-1.035) 06/19/18 21:39 Urine Protein Negative (NEGATIVE) 06/19/18 21:39 Urine Glucose (UA) Negative (NEGATIVE) 06/19/18 21:39 Urine Ketones Negative (NEGATIVE) 06/19/18 21:39 Urine Blood Negative (NEGATIVE) 06/19/18 21:39 Urine Nitrite Negative (NEGATIVE) 06/19/18 21:39 Urine Bilirubin Negative (<2.0 mg/dL) 06/19/18 21:39 Urine Urobilinogen Negative mg/dL (0.2-1.0) 06/19/18 21:39 Ur Leukocyte Esterase Negative (NEGATIVE) 06/19/18 21:39 - Physical Exam Results Vital Signs: Vital Signs Temperature 97.3 F L 06/22/18 07:20 Pulse Rate 55 L 06/22/18 07:20 Respiratory Rate 18 06/22/18 07:20 Blood Pressure 114/58 L 06/22/18 07:20 O2 Sat by Pulse Oximetry (%) - Medication Discharge Medications: Ambulatory Orders NK [No Known Home Medication] 12/01/17 - Diagnosis (1) Opioid dependence with withdrawal Current Visit: Yes Status: Acute (2) Cocaine dependence, uncomplicated Current Visit: Yes Status: Chronic (3) Weight loss Current Visit: No Status: Acute (4) Cannabis dependence, uncomplicated Current Visit: Yes Status: Chronic - AMA Did Patient Leave Against Medical Advice: Yes
[2018-06-22 09:01] VITALS: BP 124/87; PULSE 67; TEMP 98.1
[2018-06-22] MEDS ORDERED: METHADONE HCL 5 MG TABLET (FOR DETOX USE ONLY) PO ONE (10:00)
[2018-06-22] MEDS: PRENATAL VITAMINS W/ FOLIC ACID TABLET (FP) PO SCH (10:18)
[2018-06-23] MEDS ORDERED: METHADONE HCL 10 MG TABLET (FOR DETOX USE ONLY) PO ONE (10:00)
[2018-06-24] MEDS ORDERED: METHADONE HCL 5 MG TABLET (FOR DETOX USE ONLY) PO ONE (06:00)
== END 2018-06-22 09:10 | disposition left against medical advice (07) | DRG 770 ==
LOC: YASAS 16:35 → Y6N 19:31
PROC: HZ2ZZZZ Detoxification Services for Substance Abuse Treatment (ICD-10-PCS; principal; 2018-06-19)
DX: F11.23 Opioid dependence with withdrawal (principal); F14.20 Cocaine dependence, uncomplicated; F12.20 Cannabis dependence, uncomplicated; F19.282 Other psychoactive substance dependence with psychoactive substance-induced sleep disorder; M54.5 Low back pain; R63.4 Abnormal weight loss; Z68.22 Body mass index [BMI] 22.0-22.9, adult; Z85.71 Personal history of Hodgkin lymphoma
CPT/HCPCS: 81003; 93005; 93010

== ENCOUNTER 2018-10-16 15:11 | Inpatient (IN) | payer OTHER ==
[2018-10-16 17:07] VITALS: BMI 22.6
--- NOTE | 2018-10-16 18:28 | HP ---
"COWS - Scale Resting Pulse: 0= [place] 80 or Below Sweatin= Beads of Sweat on Face Restless Observation: 1= Difficult to Sit Still Pupil Size: 2= Moderately Dilated (Pupils = 6 mm) Bone or Joint Aches: 2= Severe Diffuse Aches Runny Nose/ Eye Tearin= Nasal Congestion GI Upset > 30mins: 2= Nausea/Diarrhea Tremor Observation: 4= Gross Tremor/Twitching Yawning Observation: 0= None Anxiety or Irritability: 1=Feels Anxious/Irritable Goose Flesh Skin: 0=Smooth Skin COWS Score: 16 CIWA Score - Admission Criteria OASAS Guidelines: Admission for Medically Managed Detox: Requires at least one of the followin. CIWA greater than 12 2. Seizures within the past 24 hours 3. Delirium tremens within the past 24 hours 4. Hallucinations within the past 24 hours 5. Acute intervention needed for co occurring medical disorder 6. Acute intervention needed for co occurring psychiatric disorder 7. Severe withdrawal that cannot be handled at a lower level of care (continued vomiting, continued diarrhea, abnormal vital signs) requiring intravenous medication and/or fluids 8. Admission [facility] Chief Complaint: Here for heroin withdrawal. Allergies/Adverse Reactions: Allergies Allergy/AdvReac Type Severity Reaction Status Date / Time No Known Drug Allergies Allergy Verified 10/16/18 17:12 History of Present Illness: Here for detox. Started drug use with Percocet for pain management and then started buying illegally, at age 25. Then switched over to heroin. Heroin use since age 26. Cocaine use since age 26. Longest length of sobriety is 3 months. Hx: Hodgkin's Lymphoma in 2010. Received chemo and states is in remission. Hx: PPD (+) . No CXR @ [facility] Last EKG 06/19/18 - NSR. Mental Health: Hx anxiety. Denies depression. Denies thoughts of harming self or others. Search Terms: Susan Juares, 1990 Search Date: 10/16/2018 05:59:44 PM The Drug Utilization Report below displays all of the controlled substance prescriptions, if any, that your patient has filled in the last twelve months. The information displayed on this report is compiled from pharmacy submissions to the Department, and accurately reflects the information as submitted by the pharmacies. This report was requested by: Camila Cohen | Reference #: [id number] There are no results for the search terms that you entered. Exam Limitations: No Limitations - Ebola screening Have you traveled outside of the country in the last 21 days: No Have you had contact with anyone from an Ebola affected area: No Have you been sick,other than usual withdrawal symptoms: No Do you have a fever: No - Review of Systems EENT: reports: No Symptoms Reported Respiratory: reports: No Symptoms reported Cardiac: reports: No Symptoms Reported GI: reports: Diarrhea (w/ stomach cramps r/t withdrawal) : reports: Testicular Swelling Musculoskeletal: reports: Other (Generalized body ached r/t withdraeal) Integumentary: reports: No Symptoms Reported Neuro: reports: Headache (Throbbing headache at back of head r/t withdrawal) Endocrine: reports: Increased Thirst Hematology: reports: Other (Hx Hodgkin's Lymphoma (2010) in remission) Psychiatric: reports: Judgement Intact, Orientated x3 (Off date by 2 days), Agitated, Anxious Patient History - Patient Medical History Hx Anemia: No Hx Asthma: No Hx Chronic Obstructive Pulmonary Disease (COPD): No Hx Cancer: Yes (hodgkins 2010 - chemo - in remission - sees oncologist) Hx Cardiac Disorders: No Hx Congestive Heart Failure: No Hx Hypertension: No Hx Hypercholesterolemia: No Hx Pacemaker: No HX Cerebrovascular Accident: No Hx Seizures: No Hx Dementia: No Hx Diabetes: No Hx Gastrointestinal Disorders: No Hx Liver Disease: No Hx Genitourinary Disorders: No Hx Sexually Transmitted Disorders: No Hx Renal Disease (ESRD): No Hx Thyroid Disease: No Hx Human Immunodeficiency Virus (HIV): No ( 2017) Hx Hepatitis C: No Hx Depression: No Hx Suicide Attempt: No Hx Bipolar Disorder: No Hx Schizophrenia: No - Patient Surgical History Past Surgical History: Yes Hx Neurologic Surgery: No Hx Cataract Extraction: No Hx Cardiac Surgery: No Hx Lung Surgery: No Hx Breast Surgery: No Hx Breast Biopsy: No Hx Abdominal Surgery: No Hx Appendectomy: No Hx Cholecystectomy: No Hx Genitourinary Surgery: No Hx Section: No Hx Orthopedic Surgery: Yes (R hand tendon repair in 2007) Other Surgical History: R hand tendon repair in 2007 Anesthesia Reaction: No - PPD History Previous Implant?: Yes Documented Results: Positive w/proof Implanted On Prior R Admission?: Yes Date: 06/21/18 Results: NEGATIVE PPD to be Administered?: No - Smoking Cessation Smoking history: Never smoked Have you smoked in the past 12 months: No Cigars Per Day: 0 Hx Chewing Tobacco Use: No - Substance & Tx. History Hx Alcohol Use: No Hx Substance Use: Yes Substance Use Type: Cocaine, Heroin Hx Substance Use Treatment: Yes (detoxes, rehab) - Substances Abused Heroin Route: Inhalation Frequency: Daily Amount used: 10BAGS Age of first use: 26 Date of Last Use: 10/15/18 Cocaine Route: Inhalation Frequency: Daily Amount used: 1BAG Age of first use: 26 Date of Last Use: 10/15/18 PERCOCET Route: Oral Frequency: 1-2 times per week Amount used: 10MG- 3 TABS Age of first use: 25 Date of Last Use: 10/14/18 Family Disease History - Family Disease History Family Disease History: Other: Father (living, healthy), Mother (living, healthy ), Brother (one - living - healthy), Sister (one- living - healthy) Admission Physical Exam [facility] - Vital Signs Vital Signs: Vital Signs - 24 hr 10/16/18 17:03 Temperature 98.8 F Pulse Rate 70 Respiratory 18 Rate Blood Pressure 117/65 - Physical General Appearance: Yes: Nourished, Appropriately Dressed, Mild Distress HEENTM: Yes: EOMI (Jerking movement of eyes on (L) lateral gaze), Hearing grossly Normal, Normocephalic, Normal Voice, BRAIN (Pupils = 6 mm), Pharynx Normal, Nasal Congestion Respiratory: Yes: Lungs Clear, Normal Breath Sounds, No Respiratory Distress Neck: Yes: No masses,lesions,Nodules, Supple Breast: Yes: Breast Exam Deferred Cardiology: Yes: Regular Rhythm, Regular Rate, S1, S2 Abdominal: Yes: Non Tender, Flat, Soft, Increased Bowel Sounds Genitourinary: Yes: Within Normal Limits Back: Yes: Normal Inspection Musculoskeletal: Yes: full range of Motion, Gait Steady Extremities: Yes: Normal Capillary Refill, Normal Inspection, Normal Range of Motion, Non-Tender, Tremors (Gross tremors of hands w/ elevation) 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: 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 - Detox or Rehab [facility] Level of Care: Medically Managed Detox Regimen/Protocol: Librium, Methadone [facility] Breath Alcohol Content Breath Alcohol Content: 0 Urine Drug Screen - Results Drug Screen Negative: Yes Urine Drug Screen Results: TARSHA-Cocaine, OPI-Opiates, FEN-Fentanyl"
[2018-10-16] MEDS ORDERED: ACETAMINOPHEN 325 MG TABLET (FP) PO PRN (18:58)
[2018-10-16] MEDS ORDERED: MAGNESIUM HYDROX 2400MG/30ML ORAL SUSPENSION 30 ML CUP PO PRN (18:58)
[2018-10-16] MEDS ORDERED: IBUPROFEN 400 MG TABLET (FP) PO PRN (18:58)
[2018-10-16] MEDS ORDERED: MENTHOL/PHENOL 1 EACH UD MM PRN (18:58)
[2018-10-16] MEDS ORDERED: MAG HYDROX/AL HYDROX/SIMETH 30 ML UNIT-DOSE CUP PO PRN (18:58)
[2018-10-16] MEDS ORDERED: LOPERAMIDE HCL 2 MG CAPSULE PO PRN (18:58)
[2018-10-16] MEDS ORDERED: P-EPHED 60MG/TRIPROLIDI 2.5MG TABLET PO PRN (18:58)
[2018-10-16] MEDS ORDERED: METHADONE HCL 10 MG TABLET (FOR DETOX USE ONLY) PO ONE ×2 (18:58→23:00)
[2018-10-16] MEDS ORDERED: MAGNESIUM CITRATE 300 ML BOTTLE PO PRN (18:58)
[2018-10-16] MEDS: THIAMINE HCL 100 MG TABLET (FP) PO SCH (22:15)
[2018-10-16] MEDS: MELATONIN 5 MG TABLETS PO PRN (22:15)
[2018-10-16] MEDS: diazePAM 5 MG TABLET PO PRN (22:21)
[2018-10-17] MEDS ORDERED: METHADONE HCL 10 MG TABLET (FOR DETOX USE ONLY) PO ONE (10:00)
--- NOTE | 2018-10-17 10:26 | PN ---
BHS COWS - Scale Resting Pulse: 0= [place] 80 or Below Sweatin= Chills/Flushing Restless Observation: 1= Difficult to Sit Still Pupil Size: 1= Pupils >than Normal Bone or Joint Aches: 2= Severe Diffuse Aches Runny Nose/ Eye Tearin= Nasal Congestion GI Upset > 30mins: 2= Nausea/Diarrhea Tremor Observation of Outstretched Hands: 1= Tremor [place], Not Seen Yawning Observation: 2= >3x During Session Anxiety or Irritability: 1=Feels Anxious/Irritable Goose Flesh Skin: 0=Smooth Skin COWS Score: 12 BHS Progress Note (SOAP) Subjective: body aches joints pain tremor Objective: 10/17/18 10:31 Vital Signs Temperature 96.5 F L 10/17/18 09:08 Pulse Rate 64 10/17/18 09:08 Respiratory Rate 18 10/17/18 09:08 Blood Pressure 116/79 10/17/18 09:08 O2 Sat by Pulse Oximetry (%) 10/17/18 10:33 lab pending Assessment: 10/17/18 10:33 withdrawal sx Plan: continue detox
[2018-10-17] MEDS: diazePAM 5 MG TABLET PO PRN ×3 (10:33→22:14)
[2018-10-17] MEDS: PRENATAL VITAMINS W/ FOLIC ACID TABLET (FP) PO SCH (10:33)
[2018-10-17] MEDS: THIAMINE HCL 100 MG TABLET (FP) PO SCH (22:14)
[2018-10-17] MEDS: MELATONIN 5 MG TABLETS PO PRN (22:14)
[2018-10-18] MEDS ORDERED: METHADONE HCL 5 MG TABLET (FOR DETOX USE ONLY) PO ONE (10:00)
[2018-10-18] MEDS: PRENATAL VITAMINS W/ FOLIC ACID TABLET (FP) PO SCH (10:17)
[2018-10-18] MEDS: diazePAM 5 MG TABLET PO PRN ×2 (10:21→22:17)
[2018-10-18 10:35] LABS: HEMOGLOBIN 12.7 GM/dL (11.7-16.9); MCH 28.3 pg (25.7-33.7); MCHC 33.3 g/dl (32.0-35.9); MEAN PLT VOLUME 10.3 fl (7.5-11.1); PLATELET COUNT 167 K/MM3 (134-434); RBC 4.48 M/mm3 (4.00-5.60); RDW 13.7 % (11.9-15.9); WHITE BLOOD COUNT 3.2 K/mm3 (4.0-10.0)
[2018-10-18 10:44] LABS: ALBUMIN 3.2 g/dl (3.4-5.0); ALK PHOS 69 U/L (45-117); ANION GAP 10 MMOL/L (8-16); BILIRUBIN,TOTAL 0.3 mg/dL (0.2-1); BLOOD UREA NITROGEN 13 mg/dL (7-18); CALCIUM 8.6 mg/dL (8.5-10.1); CHLORIDE 104 mmol/L (98-107); CO2 27 mmol/L (21-32); GLUCOSE,RANDOM 75 mg/dL (74-106); POTASSIUM 4.5 mmol/L (3.5-5.1); SGOT/AST 28 U/L (15-37); SGPT/ALT 34 U/L (13-61); SODIUM 140 mmol/L (136-145)
--- NOTE | 2018-10-18 16:01 | PN ---
BHS COWS - Scale Resting Pulse: 0= [place] 80 or Below Sweatin= Chills/Flushing Restless Observation: 1= Difficult to Sit Still Pupil Size: 0= Normal to Room Light Bone or Joint Aches: 2= Severe Diffuse Aches Runny Nose/ Eye Tearin= Nasal Congestion GI Upset > 30mins: 1= Stomach Cramp Tremor Observation of Outstretched Hands: 0= None Yawning Observation: 1= 1-2x During Session Anxiety or Irritability: 2=Irritable/Anxious Goose Flesh Skin: 0=Smooth Skin COWS Score: 9 BHS Progress Note (SOAP) Subjective: Sweating, Stomach Cramping, Interrupted Sleep, Body Aches. Objective: PATIENT A & O X 3. IN NO ACUTE DISTRESS. 10/18/18 15:58 Vital Signs Temperature 97.0 F L 10/18/18 14:02 Pulse Rate 69 10/18/18 14:02 Respiratory Rate 18 10/18/18 14:02 Blood Pressure 126/77 10/18/18 14:02 O2 Sat by Pulse Oximetry (%) Laboratory Tests 10/18/18 10/18/18 06:00 07:00 WBC 3.2 L RBC 4.48 Hgb 12.7 Hct 38.0 MCV 85.0 MCH 28.3 MCHC 33.3 RDW 13.7 Plt Count 167 MPV 10.3 Sodium 140 Potassium 4.5 Chloride 104 Carbon Dioxide 27 Anion Gap 10 BUN 13 Creatinine 1.0 Creat Clearance w eGFR > 60 Random Glucose 75 Calcium 8.6 Total Bilirubin 0.3 AST 28 ALT 34 Alkaline Phosphatase 69 Total Protein 7.0 Albumin 3.2 L LABS NOTED. PATIENT HAS HAD LOW WBC LEVELS ON PREVIOUS ADMISSIONS. 10/18/18 16:00 Assessment: 10/18/18 15:59 WITHDRAWAL SYMPTOMS. LEUKOPENIA. Plan: CONTINUE DETOX. INCREASE DAILY PO FLUID INTAKE. PRN FLEXERIL PO FOR BODY ACHES.
[2018-10-18] MEDS: METHOCARBAMOL 500 MG TABLET PO PRN (22:17)
[2018-10-18] MEDS: THIAMINE HCL 100 MG TABLET (FP) PO SCH (22:17)
[2018-10-19] MEDS ORDERED: METHADONE HCL 5 MG TABLET (FOR DETOX USE ONLY) PO ONE (10:00)
[2018-10-19] MEDS ORDERED: METHADONE HCL 10 MG TABLET (FOR DETOX USE ONLY) PO ONE (10:00)
[2018-10-19] MEDS: PRENATAL VITAMINS W/ FOLIC ACID TABLET (FP) PO SCH (11:20)
--- NOTE | 2018-10-19 15:14 | PN ---
BHS Progress Note (SOAP) Subjective: Interrupted Sleep (Improvement over last few nights), Body Aches. Objective: PATIENT A & O X 3, OBSERVED AMBULATING ON UNIT. IN NO ACUTE DISTRESS. 10/19/18 15:12 Vital Signs Temperature 98.8 F 10/19/18 13:36 Pulse Rate 81 10/19/18 13:36 Respiratory Rate 18 10/19/18 13:36 Blood Pressure 114/65 10/19/18 13:36 O2 Sat by Pulse Oximetry (%) Laboratory Tests 10/18/18 10/18/18 10/18/18 06:00 07:00 07:00 WBC 3.2 L RBC 4.48 Hgb 12.7 Hct 38.0 MCV 85.0 MCH 28.3 MCHC 33.3 RDW 13.7 Plt Count 167 MPV 10.3 Sodium 140 Potassium 4.5 Chloride 104 Carbon Dioxide 27 Anion Gap 10 BUN 13 Creatinine 1.0 Creat Clearance w eGFR > 60 Random Glucose 75 Calcium 8.6 Total Bilirubin 0.3 AST 28 ALT 34 Alkaline Phosphatase 69 Total Protein 7.0 Albumin 3.2 L RPR Titer Nonreactive LABS NOTED. Assessment: 10/19/18 15:13 WITHDRAWAL SYMPTOMS. LEUKOPENIA. 10/19/18 15:13 Plan: CONTINUE DETOX. PATIENT REPORTS THAT HE IS TOLERATING CURRENT WITHDRAWAL / DETOX SYMPTOMS WELL. AT PATIENT'S REQUEST, CURRENT DETOX MEDICATION REGIMEN MODIFIED SO THAT PATIENT MAY BE DISCHARGED TOMORROW, 10/20/2018.
[2018-10-19] MEDS: THIAMINE HCL 100 MG TABLET (FP) PO SCH (22:26)
[2018-10-19] MEDS: METHOCARBAMOL 500 MG TABLET PO PRN (22:27)
[2018-10-19] MEDS: MELATONIN 5 MG TABLETS PO PRN (22:27)
[2018-10-20] MEDS ORDERED: METHADONE HCL 5 MG TABLET (FOR DETOX USE ONLY) PO ONE (06:00)
[2018-10-20 06:23] VITALS: BP 109/73; PULSE 54; TEMP 97.1
[2018-10-20] MEDS ORDERED: METHADONE HCL 10 MG TABLET (FOR DETOX USE ONLY) PO ONE (10:00)
--- NOTE | 2018-10-20 11:39 | DS ---
[facility] Detox Discharge Summary Admission Date: 10/16/18 Discharge Date: 10/20/18 - History Present History: Opioid Dependence Additional Comments: 28 years old male admitted on 10/16/18 for opiate withdrawal stabilization completed detox regimen aftercare Dr. Jeffy Pierre Pertinent Past History: discuss medication assisted treatment program as well suboxoone and methadone and injectable alternative therapies - Physical Exam Results Vital Signs: Vital Signs Temperature 97.1 F L 10/20/18 06:23 Pulse Rate 54 L 10/20/18 06:23 Respiratory Rate 18 10/20/18 06:30 Blood Pressure 109/73 10/20/18 06:23 O2 Sat by Pulse Oximetry (%) Pertinent Admission Physical Exam Findings: opiate withdrawal sx Laboratory Last Values WBC 3.2 K/mm3 (4.0-10.0) L 10/18/18 06:00 RBC 4.48 M/mm3 (4.00-5.60) 10/18/18 06:00 Hgb 12.7 GM/dL (11.7-16.9) 10/18/18 06:00 Hct 38.0 % (35.4-49) 10/18/18 06:00 MCV 85.0 fl (80-96) 10/18/18 06:00 MCH 28.3 pg (25.7-33.7) 10/18/18 06:00 MCHC 33.3 g/dl (32.0-35.9) 10/18/18 06:00 RDW 13.7 % (11.9-15.9) 10/18/18 06:00 Plt Count 167 K/MM3 (134-434) 10/18/18 06:00 MPV 10.3 fl (7.5-11.1) 10/18/18 06:00 Sodium 140 mmol/L (136-145) 10/18/18 07:00 Potassium 4.5 mmol/L (3.5-5.1) 10/18/18 07:00 Chloride 104 mmol/L (98-107) 10/18/18 07:00 Carbon Dioxide 27 mmol/L (21-32) 10/18/18 07:00 Anion Gap 10 MMOL/L (8-16) 10/18/18 07:00 BUN 13 mg/dL (7-18) 10/18/18 07:00 Creatinine 1.0 mg/dL (0.55-1.3) 10/18/18 07:00 Creat Clearance w eGFR > 60 (>60) 10/18/18 07:00 Random Glucose 75 mg/dL (74-106) 10/18/18 07:00 Calcium 8.6 mg/dL (8.5-10.1) 10/18/18 07:00 Total Bilirubin 0.3 mg/dL (0.2-1) 10/18/18 07:00 AST 28 U/L (15-37) 10/18/18 07:00 ALT 34 U/L (13-61) 10/18/18 07:00 Alkaline Phosphatase 69 U/L (45-117) 10/18/18 07:00 Total Protein 7.0 g/dl (6.4-8.2) 10/18/18 07:00 Albumin 3.2 g/dl (3.4-5.0) L 10/18/18 07:00 RPR Titer Nonreactive (NONREACTIVE) 10/18/18 07:00 lab noted - Treatment Hospital Course: Detox Protocol Followed, Detoxed Safely, Responded well, Discharged Condition Good, Rehab Referral Accepted Patient has Accepted a Rehab Referral to: primary care provider - Medication Discharge Medications: Ambulatory Orders NK [No Known Home Medication] 12/01/17 - Diagnosis (1) Opioid dependence with withdrawal Status: Acute (2) Weight loss Status: Acute - AMA Did Patient Leave Against Medical Advice: No
[2018-10-21] MEDS ORDERED: METHADONE HCL 5 MG TABLET (FOR DETOX USE ONLY) PO ONE (06:00)
== END 2018-10-20 08:52 | disposition home or self-care (01) | DRG 773 ==
LOC: YASAS 15:11 → Y3N 21:29
PROVIDERS: ADMIT Neuromusculoskeletal Medicine & OMM; ATTEND Neuromusculoskeletal Medicine & OMM
PROC: HZ2ZZZZ Detoxification Services for Substance Abuse Treatment (ICD-10-PCS; principal; 2018-10-16)
DX: F11.23 Opioid dependence with withdrawal (principal); F14.20 Cocaine dependence, uncomplicated; E86.0 Dehydration; D72.819 Decreased white blood cell count, unspecified; R76.11 Nonspecific reaction to tuberculin skin test without active tuberculosis; Z85.71 Personal history of Hodgkin lymphoma; Z92.3 Personal history of irradiation
CPT/HCPCS: 36415; 71046-TC-FY; 80053; 85027; 86593

== ENCOUNTER 2018-12-02 21:37 | Inpatient (IN) | payer OTHER ==
[2018-12-02 21:58] VITALS: BMI 22.4
--- NOTE | 2018-12-03 00:14 | HP ---
COWS - Scale Resting Pulse: 0= [place] 80 or Below Sweatin=Flushed/Facial Moisture Restless Observation: 0= Sits Still Pupil Size: 0= Normal to Room Light Bone or Joint Aches: 4=Acute Joint/Muscle Pain Runny Nose/ Eye Tearin= Runny Nose/Eyes GI Upset > 30mins: 2= Nausea/Diarrhea (diarrhea x 2) Tremor Observation: 4= Gross Tremor/Twitching Yawning Observation: 0= None Anxiety or Irritability: 2=Irritable/Anxious Goose Flesh Skin: 0=Smooth Skin COWS Score: 16 CIWA Score - Admission Criteria OASAS Guidelines: Admission for Medically Managed Detox: Requires at least one of the followin. CIWA greater than 12 2. Seizures within the past 24 hours 3. Delirium tremens within the past 24 hours 4. Hallucinations within the past 24 hours 5. Acute intervention needed for co occurring medical disorder 6. Acute intervention needed for co occurring psychiatric disorder 7. Severe withdrawal that cannot be handled at a lower level of care (continued vomiting, continued diarrhea, abnormal vital signs) requiring intravenous medication and/or fluids 8. Admission [facility] Chief Complaint: heroin withdrawal symptoms Allergies/Adverse Reactions: Allergies Allergy/AdvReac Type Severity Reaction Status Date / Time No Known Drug Allergies Allergy Verified 12/02/18 23:41 History of Present Illness: 28 years old male with 2 years history of heroin dependence is seeking admission to detox. Patient has been inprevious detox and reports insignificant period of sobriety. He has medical history Hodgkins lymphoma. Denies suicide attemptr and suicidal ideation at this time Exam Limitations: No Limitations - Ebola screening Have you traveled outside of the country in the last 21 days: No (N) Have you had contact with anyone from an Ebola affected area: No Have you been sick,other than usual withdrawal symptoms: No Do you have a fever: No - Review of Systems Constitutional: Chills, Loss of Appetite, Changes in sleep, Weakness EENT: reports: No Symptoms Reported Patient History - Patient Medical History Hx Anemia: No Hx Asthma: No Hx Chronic Obstructive Pulmonary Disease (COPD): No Hx Cancer: Yes (hodgkins 2011 - chemo - in remission - sees oncologist) Hx Cardiac Disorders: No Hx Congestive Heart Failure: No Hx Hypertension: No Hx Hypercholesterolemia: No Hx Pacemaker: No HX Cerebrovascular Accident: No Hx Seizures: No Hx Dementia: No Hx Diabetes: No Hx Gastrointestinal Disorders: No Hx Liver Disease: No Hx Genitourinary Disorders: No Hx Sexually Transmitted Disorders: No Hx Renal Disease (ESRD): No Hx Thyroid Disease: No Hx Human Immunodeficiency Virus (HIV): No ( 2017) Hx Hepatitis C: No Hx Depression: No Hx Suicide Attempt: No Hx Bipolar Disorder: No Hx Schizophrenia: No - Patient Surgical History Past Surgical History: Yes Hx Neurologic Surgery: No Hx Cataract Extraction: No Hx Cardiac Surgery: No Hx Lung Surgery: No Hx Breast Surgery: No Hx Breast Biopsy: No Hx Abdominal Surgery: No Hx Appendectomy: No Hx Cholecystectomy: No Hx Genitourinary Surgery: No Hx Section: No Hx Orthopedic Surgery: Yes (R hand tendon repair in 2007) Other Surgical History: R hand tendon repair in 2007 Anesthesia Reaction: No - PPD History Date: 06/21/18 Results: NEGATIVE - Smoking Cessation Smoking history: Never smoked Have you smoked in the past 12 months: No Cigars Per Day: 0 Hx Chewing Tobacco Use: No - Substances Abused Heroin Route: SNIFF Amount used: 1 BUNDLE Age of first use: 26 Date of Last Use: 12/02/18 Cocaine Route: Smoking Frequency: Daily Amount used: 1/2 GRAM Age of first use: 27 Date of Last Use: 12/02/18 Family Disease History - Family Disease History Family Disease History: Other: Father (living, healthy), Mother (living, healthy ), Brother (one - living - healthy), Sister (one- living - healthy) Admission Physical Exam [facility] - Vital Signs Vital Signs: Vital Signs - 24 hr 12/02/18 21:56 Temperature 98 F Pulse Rate 66 Respiratory 16 Rate Blood Pressure 119/70 Cleared for Admission [facility] - Detox or Rehab [facility] Level of Care: Medically Managed Detox Regimen/Protocol: Methadone [facility] Breath Alcohol Content Breath Alcohol Content: 0 Urine Drug Screen - Results Drug Screen Negative: No Urine Drug Screen Results: TARSHA-Cocaine, OPI-Opiates, FEN-Fentanyl Inpatient Rehab Admission - Rehab Decision to Admit Inpatient rehab admission?: No
[2018-12-03] MEDS ORDERED: MENTHOL/PHENOL 1 EACH UD MM PRN (00:20)
[2018-12-03] MEDS ORDERED: MELATONIN 5 MG TABLETS PO PRN (00:20)
[2018-12-03] MEDS ORDERED: ACETAMINOPHEN 325 MG TABLET (FP) PO PRN ×2 (00:20)
[2018-12-03] MEDS ORDERED: BISMUTH SUBSALICYLATE 524 MG/30 ML UD PO PRN (00:20)
[2018-12-03] MEDS ORDERED: MAGNESIUM CITRATE 300 ML BOTTLE PO PRN (00:20)
[2018-12-03] MEDS ORDERED: MAGNESIUM HYDROX 2400MG/30ML ORAL SUSPENSION 30 ML CUP PO PRN (00:20)
[2018-12-03] MEDS ORDERED: cloNIDine HCL 0.1 MG TABLET PO PRN ×2 (00:20→01:14)
[2018-12-03] MEDS ORDERED: METHOCARBAMOL 500 MG TABLET PO PRN (00:20)
[2018-12-03] MEDS ORDERED: hydrOXYzine PAMOATE 25 MG CAPSULE (FP) PO PRN (00:20)
[2018-12-03] MEDS ORDERED: MAG HYDROX/AL HYDROX/SIMETH 30 ML UNIT-DOSE CUP PO PRN (00:20)
[2018-12-03] MEDS ORDERED: IBUPROFEN 400 MG TABLET (FP) PO PRN (00:20)
[2018-12-03] MEDS ORDERED: METHADONE HCL 10 MG TABLET (FOR DETOX USE ONLY) PO ONE ×3 (01:30→23:00)
[2018-12-03] MEDS: PRENATAL VITAMINS W/ FOLIC ACID TABLET (FP) PO SCH (11:17)
--- NOTE | 2018-12-03 15:34 | PN ---
BHS COWS - Scale Resting Pulse: 1= [place] 81-100 Sweatin= Chills/Flushing Restless Observation: 1= Difficult to Sit Still Pupil Size: 1= Pupils >than Normal Bone or Joint Aches: 1= Mild Discomfort Runny Nose/ Eye Tearin= Nasal Congestion GI Upset > 30mins: 1= Stomach Cramp Tremor Observation of Outstretched Hands: 1= Tremor [place], Not Seen Yawning Observation: 2= >3x During Session Anxiety or Irritability: 1=Feels Anxious/Irritable Goose Flesh Skin: 0=Smooth Skin COWS Score: 11 BHS Progress Note (SOAP) Subjective: stuffy nose irritable restlessness tremor sweating body aches Objective: 12/03/18 15:36 Vital Signs Temperature 97.2 F L 12/03/18 13:39 Pulse Rate 55 L 12/03/18 13:39 Respiratory Rate 18 12/03/18 13:39 Blood Pressure 107/68 12/03/18 13:39 O2 Sat by Pulse Oximetry (%) 12/03/18 15:37 lab pending Assessment: 12/03/18 15:37 withdrawal sx Plan: continue detox
[2018-12-03] MEDS: diazePAM 5 MG TABLET PO PRN ×2 (16:46→22:30)
[2018-12-03] MEDS ORDERED: QUEtiapine FUMARATE 50 MG TABLET PO ONE (22:00)
[2018-12-03] MEDS: THIAMINE HCL 100 MG TABLET (FP) PO SCH (22:30)
[2018-12-04] MEDS ORDERED: METHADONE HCL 10 MG TABLET (FOR DETOX USE ONLY) PO ONE ×3 (10:00)
[2018-12-04 10:58] LABS: HEMATOCRIT 37.7 % (35.4-49); HEMOGLOBIN 12.8 GM/dL (11.7-16.9); MCH 28.6 pg (25.7-33.7); MCHC 34.1 g/dl (32.0-35.9); MEAN CELL VOLUME 83.9 fl (80-96); MEAN PLT VOLUME 9.4 fl (7.5-11.1); PLATELET COUNT 225 K/MM3 (134-434); RBC 4.49 M/mm3 (4.00-5.60); RDW 13.3 % (11.9-15.9); WHITE BLOOD COUNT 3.9 K/mm3 (4.0-10.0)
[2018-12-04] MEDS: PRENATAL VITAMINS W/ FOLIC ACID TABLET (FP) PO SCH (11:10)
[2018-12-04] MEDS: diazePAM 5 MG TABLET PO PRN (11:12)
[2018-12-04 11:24] LABS: ALBUMIN 3.6 g/dl (3.4-5.0); ALK PHOS 77 U/L (45-117); ANION GAP 7 MMOL/L (8-16); BILIRUBIN,TOTAL 0.5 mg/dL (0.2-1); BLOOD UREA NITROGEN 10 mg/dL (7-18); CALCIUM 9.2 mg/dL (8.5-10.1); CHLORIDE 105 mmol/L (98-107); CO2 29 mmol/L (21-32); GLUCOSE,RANDOM 77 mg/dL (74-106); POTASSIUM 4.2 mmol/L (3.5-5.1); SGOT/AST 36 U/L (15-37); SGPT/ALT 55 U/L (13-61); SODIUM 141 mmol/L (136-145); TOT PROT 7.7 g/dl (6.4-8.2)
[2018-12-04] MEDS ORDERED: diazePAM 5 MG TABLET PO PRN (12:39)
--- NOTE | 2018-12-04 15:09 | PN ---
BHS COWS - Scale Resting Pulse: 0= [place] 80 or Below Sweatin= Chills/Flushing Restless Observation: 0= Sits Still Pupil Size: 0= Normal to Room Light Bone or Joint Aches: 1= Mild Discomfort Runny Nose/ Eye Tearin= Nasal Congestion GI Upset > 30mins: 1= Stomach Cramp Tremor Observation of Outstretched Hands: 1= Tremor [place], Not Seen Yawning Observation: 1= 1-2x During Session Anxiety or Irritability: 1=Feels Anxious/Irritable Goose Flesh Skin: 0=Smooth Skin COWS Score: 7 BHS Progress Note (SOAP) Subjective: body ache back pain tremor trouble sleep at night Objective: 12/04/18 15:08 Vital Signs Temperature 98.5 F 12/04/18 13:46 Pulse Rate 87 12/04/18 13:46 Respiratory Rate 18 12/04/18 13:46 Blood Pressure 132/76 12/04/18 13:46 O2 Sat by Pulse Oximetry (%) Laboratory Last Values WBC 3.9 K/mm3 (4.0-10.0) L 12/04/18 07:00 RBC 4.49 M/mm3 (4.00-5.60) 12/04/18 07:00 Hgb 12.8 GM/dL (11.7-16.9) 12/04/18 07:00 Hct 37.7 % (35.4-49) 12/04/18 07:00 MCV 83.9 fl (80-96) 12/04/18 07:00 MCH 28.6 pg (25.7-33.7) 12/04/18 07:00 MCHC 34.1 g/dl (32.0-35.9) 12/04/18 07:00 RDW 13.3 % (11.9-15.9) 12/04/18 07:00 Plt Count 225 K/MM3 (134-434) D 12/04/18 07:00 MPV 9.4 fl (7.5-11.1) 12/04/18 07:00 Sodium 141 mmol/L (136-145) 12/04/18 07:00 Potassium 4.2 mmol/L (3.5-5.1) 12/04/18 07:00 Chloride 105 mmol/L (98-107) 12/04/18 07:00 Carbon Dioxide 29 mmol/L (21-32) 12/04/18 07:00 Anion Gap 7 MMOL/L (8-16) L 12/04/18 07:00 BUN 10 mg/dL (7-18) 12/04/18 07:00 Creatinine 1.0 mg/dL (0.55-1.3) 12/04/18 07:00 Creat Clearance w eGFR > 60 (>60) 12/04/18 07:00 Random Glucose 77 mg/dL (74-106) 12/04/18 07:00 Calcium 9.2 mg/dL (8.5-10.1) 12/04/18 07:00 Total Bilirubin 0.5 mg/dL (0.2-1) 12/04/18 07:00 AST 36 U/L (15-37) 12/04/18 07:00 ALT 55 U/L (13-61) 12/04/18 07:00 Alkaline Phosphatase 77 U/L (45-117) 12/04/18 07:00 Total Protein 7.7 g/dl (6.4-8.2) 12/04/18 07:00 Albumin 3.6 g/dl (3.4-5.0) 12/04/18 07:00 RPR Titer Nonreactive (NONREACTIVE) 12/04/18 07:00 lab noted Assessment: 12/04/18 15:08 withdrawal sx Plan: continue detox
[2018-12-04] MEDS: THIAMINE HCL 100 MG TABLET (FP) PO SCH (22:10)
[2018-12-05] MEDS ORDERED: METHADONE HCL 5 MG TABLET (FOR DETOX USE ONLY) PO ONE (10:00)
[2018-12-05] MEDS ORDERED: METHADONE HCL 10 MG TABLET (FOR DETOX USE ONLY) PO ONE ×3 (10:00)
[2018-12-05] MEDS: PRENATAL VITAMINS W/ FOLIC ACID TABLET (FP) PO SCH (10:52)
[2018-12-05] MEDS ORDERED: diazePAM 5 MG TABLET PO PRN (12:40)
--- NOTE | 2018-12-05 18:00 | PN ---
BHS Progress Note (SOAP) Subjective: Patient denies current Withdrawal / Detox symptoms and reports that he feels well overall. Objective: PATIENT A & O X 3, OBSERVED AMBULATING ON UNIT. IN NO ACUTE DISTRESS. 12/05/18 17:59 Vital Signs Temperature 97.7 F 12/05/18 14:05 Pulse Rate 72 12/05/18 14:05 Respiratory Rate 18 12/05/18 14:05 Blood Pressure 116/71 12/05/18 14:05 O2 Sat by Pulse Oximetry (%) Laboratory Tests 12/04/18 12/04/18 12/04/18 07:00 07:00 07:00 WBC 3.9 L RBC 4.49 Hgb 12.8 Hct 37.7 MCV 83.9 MCH 28.6 MCHC 34.1 RDW 13.3 Plt Count 225 D MPV 9.4 Sodium 141 Potassium 4.2 Chloride 105 Carbon Dioxide 29 Anion Gap 7 L BUN 10 Creatinine 1.0 Creat Clearance w eGFR > 60 Random Glucose 77 Calcium 9.2 Total Bilirubin 0.5 AST 36 ALT 55 Alkaline Phosphatase 77 Total Protein 7.7 Albumin 3.6 RPR Titer Nonreactive LABS NOTED. Assessment: 12/05/18 17:59 WITHDRAWAL SYMPTOMS. Plan: CONTINUE DETOX.
[2018-12-05] MEDS: THIAMINE HCL 100 MG TABLET (FP) PO SCH (22:19)
[2018-12-06 09:16] VITALS: BP 123/76; PULSE 77; TEMP 96.1
[2018-12-06] MEDS ORDERED: METHADONE HCL 5 MG TABLET (FOR DETOX USE ONLY) PO ONE ×2 (10:00→10:20)
[2018-12-06] MEDS ORDERED: METHADONE HCL 10 MG TABLET (FOR DETOX USE ONLY) PO ONE ×2 (10:00)
[2018-12-06] MEDS: PRENATAL VITAMINS W/ FOLIC ACID TABLET (FP) PO SCH (10:44)
--- NOTE | 2018-12-06 21:12 | PN ---
BHS Progress Note (SOAP) Subjective: Patient denies current Withdrawal / Detox symptoms and reports that he feels well overall. Objective: PATIENT A & O X 3, OBSERVED AMBULATING ON UNIT. IN NO ACUTE DISTRESS. 12/06/18 21:11 Vital Signs Temperature 96.1 F L 12/06/18 09:15 Pulse Rate 77 12/06/18 09:15 Respiratory Rate 18 12/06/18 09:15 Blood Pressure 123/76 12/06/18 09:15 O2 Sat by Pulse Oximetry (%) Laboratory Tests 12/04/18 12/04/18 12/04/18 07:00 07:00 07:00 WBC 3.9 L RBC 4.49 Hgb 12.8 Hct 37.7 MCV 83.9 MCH 28.6 MCHC 34.1 RDW 13.3 Plt Count 225 D MPV 9.4 Sodium 141 Potassium 4.2 Chloride 105 Carbon Dioxide 29 Anion Gap 7 L BUN 10 Creatinine 1.0 Creat Clearance w eGFR > 60 Random Glucose 77 Calcium 9.2 Total Bilirubin 0.5 AST 36 ALT 55 Alkaline Phosphatase 77 Total Protein 7.7 Albumin 3.6 RPR Titer Nonreactive LABS NOTED. Assessment: 12/06/18 21:11 COMPLETION OF DETOX REGIMEN. 12/06/18 21:12 Plan: SINCE PATIENT DENIES CURRENT WITHDRAWAL / DETOX SYMPTOMS AND REPORTS THAT HE FEELS WELL OVERALL, AT PATIENT'S REQUEST, HE WAS GRANTED AN EARLY DISCHARGE FROM DETOX UNIT.
--- NOTE | 2018-12-06 21:18 | DS ---
[facility] Detox Discharge Summary Admission Date: 12/03/18 Discharge Date: 12/06/18 - History Present History: Cocaine Dependence, Opioid Dependence Additional Comments: PATIENT DENIES CURRENT WITHDRAWAL / DETOX SYMPTOMS AND REPORTS THAT HE FEELS WELL OVERALL AT TIME OF DISCHARGE FROM DETOX UNIT. PATIENT WILL RETURN TO [facility] ([place], [place]) FOR AFTERCARE. PATIENT WILL ALSO LOOK INTO [facility] FOR AFTERCARE (LIST OF [facility] PROVIDERS GIVEN TO PATIENT BY HIS COUNSELOR PRIOR TO TIME OF DISCHARGE) . PATIENT WAS DISCHARGED FROM DETOX UNIT IN STABLE MEDICAL CONDITION. Pertinent Past History: History Of Hodgkin's Disease (Treated With Chemotherapy). - Physical Exam Results Vital Signs: Vital Signs Temperature 96.1 F L 12/06/18 09:15 Pulse Rate 77 12/06/18 09:15 Respiratory Rate 18 12/06/18 09:15 Blood Pressure 123/76 12/06/18 09:15 O2 Sat by Pulse Oximetry (%) Pertinent Admission Physical Exam Findings: WITHDRAWAL SYMPTOMS. Laboratory Tests 12/04/18 12/04/18 12/04/18 07:00 07:00 07:00 WBC 3.9 L RBC 4.49 Hgb 12.8 Hct 37.7 MCV 83.9 MCH 28.6 MCHC 34.1 RDW 13.3 Plt Count 225 D MPV 9.4 Sodium 141 Potassium 4.2 Chloride 105 Carbon Dioxide 29 Anion Gap 7 L BUN 10 Creatinine 1.0 Creat Clearance w eGFR > 60 Random Glucose 77 Calcium 9.2 Total Bilirubin 0.5 AST 36 ALT 55 Alkaline Phosphatase 77 Total Protein 7.7 Albumin 3.6 RPR Titer Nonreactive LABS NOTED. - Treatment Hospital Course: Detox Protocol Followed, Detoxed Safely, Responded well, Discharged Condition Good Patient has Accepted a Rehab Referral to: PT. RETURNING TO [facility] ([place], [place]), ALSO [facility]. - Medication Discharge Medications: Ambulatory Orders Naloxone HCl [Narcan] 4 mg NS ASDIR PRN 12/03/18 - Diagnosis (1) Opioid dependence with withdrawal Status: Acute (2) Cocaine dependence, uncomplicated Status: Chronic - AMA Did Patient Leave Against Medical Advice: No
[2018-12-07] MEDS ORDERED: METHADONE HCL 5 MG TABLET (FOR DETOX USE ONLY) PO ONE ×2 (06:00)
[2018-12-07] MEDS ORDERED: METHADONE HCL 10 MG TABLET (FOR DETOX USE ONLY) PO ONE (06:00)
== END 2018-12-06 11:17 | disposition home or self-care (01) | DRG 773 ==
LOC: YASAS 21:37 → Y3N 12-03 00:48
PROVIDERS: ADMIT Surgery; ATTEND Surgery
PROC: HZ2ZZZZ Detoxification Services for Substance Abuse Treatment (ICD-10-PCS; principal; 2018-12-03)
DX: F11.23 Opioid dependence with withdrawal (principal); F14.20 Cocaine dependence, uncomplicated; R76.11 Nonspecific reaction to tuberculin skin test without active tuberculosis; Z85.71 Personal history of Hodgkin lymphoma
CPT/HCPCS: 36415; 80053; 85027; 86593; J0735

== ENCOUNTER 2019-03-11 14:58 | Inpatient (IN) | payer OTHER ==
--- NOTE | 2019-03-11 19:56 | HP ---
"COWS - Scale Resting Pulse: 0= [place] 80 or Below Sweatin= Chills/Flushing Restless Observation: 0= Sits Still Pupil Size: 0= Normal to Room Light Bone or Joint Aches: 4=Acute Joint/Muscle Pain Runny Nose/ Eye Tearin= Runny Nose/Eyes GI Upset > 30mins: 1= Stomach Cramp Tremor Observation: 0= None Yawning Observation: 1= 1-2x During Session Anxiety or Irritability: 2=Irritable/Anxious Goose Flesh Skin: 0=Smooth Skin COWS Score: 11 CIWA Score - Admission Criteria OASAS Guidelines: Admission for Medically Managed Detox: Requires at least one of the followin. CIWA greater than 12 2. Seizures within the past 24 hours 3. Delirium tremens within the past 24 hours 4. Hallucinations within the past 24 hours 5. Acute intervention needed for co occurring medical disorder 6. Acute intervention needed for co occurring psychiatric disorder 7. Severe withdrawal that cannot be handled at a lower level of care (continued vomiting, continued diarrhea, abnormal vital signs) requiring intravenous medication and/or fluids 8. Admission [facility] Allergies/Adverse Reactions: Allergies Allergy/AdvReac Type Severity Reaction Status Date / Time No Known Drug Allergies Allergy Verified 12/02/18 23:41 History of Present Illness: This report was requested by: Nereyda Marrero | Reference #: [id number] Others' Prescriptions Patient Name: Susan Juares Date: 1990 Address: [address] [place] [address] Sex: Male Rx Written Rx Dispensed Drug Quantity Days Supply Prescriber Name 02/05/2019 02/26/2019 buprenorphine-naloxone 8-2 mg sl film 30 30 Yaquelin Culver MD 01/27/2019 01/28/2019 buprenorphine-naloxone 8-2 mg sl film 30 30 Yaquelin Culver MD 01/01/2019 01/02/2019 buprenorphine-naloxone 8-2 mg sl film 7 7 Yaquelin Culver MD * - Drugs marked with an asterisk are compound drugs. If the compound drug is made up of more than one controlled substance, then each controlled substance will be a separate row in the table. pt reports heroin use 1 bundle /day via inhalation and IVDU , latest use yesterday 7 pm , current symptoms as above. Claims he is not taking rx and has meds at home , denies abscess , denies OD , denies sharing needles , re-using 2 x , needles from pharmacy . Exam Limitations: No Limitations - Ebola screening Have you traveled outside of the country in the last 21 days: No Have you had contact with anyone from an Ebola affected area: No - Review of Systems Constitutional: See HPI EENT: reports: See HPI Respiratory: reports: No Symptoms reported Cardiac: reports: No Symptoms Reported GI: reports: See HPI : reports: No Symptoms Reported Musculoskeletal: reports: See HPI Integumentary: reports: See HPI Neuro: reports: No Symptoms reported Psychiatric: reports: Orientated x3 Patient History - Patient Medical History Hx Anemia: No Hx Asthma: No Hx Chronic Obstructive Pulmonary Disease (COPD): No Hx Cancer: Yes (hodgkins 2011 - chemo - in remission - sees oncologist) Hx Cardiac Disorders: No Hx Congestive Heart Failure: No Hx Hypertension: No Hx Hypercholesterolemia: No Hx Pacemaker: No HX Cerebrovascular Accident: No Hx Seizures: No Hx Dementia: No Hx Diabetes: No Hx Gastrointestinal Disorders: No Hx Liver Disease: No Hx Genitourinary Disorders: No Hx Sexually Transmitted Disorders: No Hx Renal Disease (ESRD): No Hx Thyroid Disease: No Hx Human Immunodeficiency Virus (HIV): No ( 2017) Hx Hepatitis C: No Hx Depression: No Hx Suicide Attempt: No Hx Bipolar Disorder: No Hx Schizophrenia: No - Patient Surgical History Past Surgical History: Yes Hx Neurologic Surgery: No Hx Cataract Extraction: No Hx Cardiac Surgery: No Hx Lung Surgery: No Hx Breast Surgery: No Hx Breast Biopsy: No Hx Abdominal Surgery: No Hx Appendectomy: No Hx Cholecystectomy: No Hx Genitourinary Surgery: No Hx Section: No Hx Orthopedic Surgery: Yes (R hand tendon repair in 2007) Other Surgical History: R hand tendon repair in 2007 Anesthesia Reaction: No - PPD History Date: 06/21/18 Results: NEGATIVE - Smoking Cessation Smoking history: Never smoked Have you smoked in the past 12 months: No Cigars Per Day: 0 Hx Chewing Tobacco Use: No Family Disease History - Family Disease History Family Disease History: Other: Father (living, healthy), Mother (living, healthy ), Brother (one - living - healthy), Sister (one- living - healthy) Admission Physical Exam BHS - Physical General Appearance: Yes: Mild Distress HEENTM: Yes: EOMI, Hearing grossly Normal Respiratory: Yes: Chest Non-Tender, Lungs Clear, No Respiratory Distress, No Accessory Muscle Use Neck: Yes: No masses,lesions,Nodules, Trachea in good position Cardiology: Yes: Regular Rhythm, Regular Rate, S1, S2 Abdominal: Yes: Non Tender, Soft Back: Yes: Normal Inspection Musculoskeletal: Yes: Gait Steady Extremities: Yes: Normal Range of Motion, Non-Tender 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: Alert, Motor Strength 5/5 Integumentary: Yes: Warm, Track Coello ([facility] , recent on left forearm w/ mild erythema) - Addiitonal Findings: ekg 06/19/18 Qtc 440 ms - Diagnostic (1) Opioid dependence on agonist therapy Current Visit: Yes Status: Acute (2) Opioid dependence with withdrawal Current Visit: Yes Status: Acute Breathalyzer - Breathalyzer Breathalyzer: 0 Urine Drug Screen - Test Device Lot number: [id number] Expiration date: 11/21/20 - Control Is test valid?: Yes - Results Drug screen NEGATIVE: No Urine drug screen results: THC-Marijuana, TARSHA-Cocaine, MOP-Opiates Inpatient Rehab Admission - Rehab Decision to Admit Inpatient rehab admission?: No"
[2019-03-11] MEDS ORDERED: IBUPROFEN 400 MG TABLET (FP) PO PRN (20:03)
[2019-03-11] MEDS ORDERED: BISMUTH SUBSALICYLATE 524 MG/30 ML UD PO PRN (20:03)
[2019-03-11] MEDS ORDERED: cloNIDine HCL 0.1 MG TABLET PO PRN (20:03)
[2019-03-11] MEDS ORDERED: MENTHOL/PHENOL 1 EACH UD MM PRN (20:03)
[2019-03-11] MEDS ORDERED: MAGNESIUM CITRATE 300 ML BOTTLE PO PRN (20:03)
[2019-03-11] MEDS ORDERED: MAGNESIUM HYDROX 2400MG/30ML ORAL SUSPENSION 30 ML CUP PO PRN (20:03)
[2019-03-11] MEDS ORDERED: ACETAMINOPHEN 325 MG TABLET (FP) PO PRN ×2 (20:03)
[2019-03-11] MEDS ORDERED: MAG HYDROX/AL HYDROX/SIMETH 30 ML UNIT-DOSE CUP PO PRN (20:03)
[2019-03-11] MEDS: THIAMINE HCL 100 MG TABLET (FP) PO SCH (22:46)
[2019-03-11] MEDS: MELATONIN 5 MG TABLETS PO PRN (22:46)
[2019-03-11] MEDS ORDERED: METHADONE HCL 10 MG TABLET (FOR DETOX USE ONLY) PO ONE (23:00)
[2019-03-12] MEDS ORDERED: METHADONE HCL 5 MG TABLET (FOR DETOX USE ONLY) PO ONE (10:00)
[2019-03-12] MEDS: PRENATAL VITAMINS W/ FOLIC ACID TABLET (FP) PO SCH (10:23)
--- NOTE | 2019-03-12 11:13 | PN ---
BHS COWS - Scale Resting Pulse: 0= [place] 80 or Below Sweatin=Flushed/Facial Moisture Restless Observation: 1= Difficult to Sit Still Pupil Size: 0= Normal to Room Light Bone or Joint Aches: 2= Severe Diffuse Aches Runny Nose/ Eye Tearin= None GI Upset > 30mins: 0= None Tremor Observation of Outstretched Hands: 1= Tremor [place], Not Seen Yawning Observation: 1= 1-2x During Session Anxiety or Irritability: 2=Irritable/Anxious Goose Flesh Skin: 0=Smooth Skin COWS Score: 9 BHS Progress Note (SOAP) Subjective: muscle aches poor appetite sweats Objective: 03/12/19 11:12 Vital Signs Temperature 97.3 F L 03/12/19 08:13 Pulse Rate 60 03/12/19 08:13 Respiratory Rate 18 03/12/19 08:13 Blood Pressure 113/74 03/12/19 08:13 O2 Sat by Pulse Oximetry (%) labs pending [id number] ambulating no acute distress Assessment: 03/12/19 11:12 withdrawal sx Plan: continue detox increase fluids flexiril 10mg prn motrin prn pending labs ensure bid
[2019-03-12 11:48] LABS: HEMATOCRIT 31.6 % (35.4-49); HEMOGLOBIN 10.5 GM/dL (11.7-16.9); MCH 27.9 pg (25.7-33.7); MCHC 33.1 g/dl (32.0-35.9); MEAN CELL VOLUME 84.1 fl (80-96); MEAN PLT VOLUME 9.1 fl (7.5-11.1); PLATELET COUNT 344 K/MM3 (134-434); RBC 3.76 M/mm3 (4.00-5.60); RDW 13.9 % (11.9-15.9); WHITE BLOOD COUNT 4.1 K/mm3 (4.0-10.0)
[2019-03-12 12:31] LABS: ALBUMIN 3.1 g/dl (3.4-5.0); BILIRUBIN,TOTAL 0.5 mg/dL (0.2-1); BLOOD UREA NITROGEN 11.4 mg/dL (7-18); CALCIUM 8.9 mg/dL (8.5-10.1); POTASSIUM 4.2 mmol/L (3.5-5.1); TOT PROT 7.4 g/dl (6.4-8.2)
[2019-03-12] MEDS: CYCLOBENZAPRINE HCL 10 MG TABLET (FP) PO PRN ×2 (15:10→22:09)
[2019-03-12] MEDS: MELATONIN 5 MG TABLETS PO PRN (22:08)
[2019-03-12] MEDS: THIAMINE HCL 100 MG TABLET (FP) PO SCH (22:09)
[2019-03-13] MEDS ORDERED: METHADONE HCL 10 MG TABLET (FOR DETOX USE ONLY) PO ONE (10:00)
[2019-03-13] MEDS: PRENATAL VITAMINS W/ FOLIC ACID TABLET (FP) PO SCH (10:24)
--- NOTE | 2019-03-13 11:29 | PN ---
BHS COWS - Scale Resting Pulse: 0= [place] 80 or Below Sweatin= Chills/Flushing Restless Observation: 1= Difficult to Sit Still Pupil Size: 1= Pupils >than Normal Bone or Joint Aches: 1= Mild Discomfort Runny Nose/ Eye Tearin= Nasal Congestion GI Upset > 30mins: 1= Stomach Cramp Tremor Observation of Outstretched Hands: 1= Tremor [place], Not Seen Yawning Observation: 1= 1-2x During Session Anxiety or Irritability: 1=Feels Anxious/Irritable Goose Flesh Skin: 0=Smooth Skin COWS Score: 9 BHS Progress Note (SOAP) Subjective: alert,irritable,anxious,interrupted sleep,pain in the body Objective: 03/13/19 11:28 Vital Signs Temperature 97.9 F 03/13/19 09:21 Pulse Rate 64 03/13/19 09:21 Respiratory Rate 18 03/13/19 09:21 Blood Pressure 108/68 03/13/19 09:21 O2 Sat by Pulse Oximetry (%) Assessment: 03/13/19 11:28 withdrawal symptom Plan: continue detox,discharge in am
[2019-03-13] MEDS: CYCLOBENZAPRINE HCL 10 MG TABLET (FP) PO PRN ×2 (18:17→22:46)
[2019-03-13] MEDS: THIAMINE HCL 100 MG TABLET (FP) PO SCH (22:46)
[2019-03-13] MEDS: MELATONIN 5 MG TABLETS PO PRN (22:47)
[2019-03-14] MEDS ORDERED: METHADONE HCL 5 MG TABLET (FOR DETOX USE ONLY) PO ONE (06:00)
[2019-03-14 06:38] VITALS: TEMP 97.5
--- NOTE | 2019-03-14 09:39 | DS ---
[facility] Detox Discharge Summary Admission Date: 03/11/19 Discharge Date: 03/14/19 - History Present History: Cannabis Dependence, Cocaine Dependence, Opioid Dependence - Physical Exam Results Vital Signs: Vital Signs Temperature 97.5 F L 03/14/19 06:00 Pulse Rate 58 L 03/14/19 06:00 Respiratory Rate 18 03/14/19 06:00 Blood Pressure 106/59 L 03/14/19 06:00 O2 Sat by Pulse Oximetry (%) - Treatment Hospital Course: Detox Protocol Followed, Detoxed Safely, Responded well, Discharged Condition Good, Rehab Referral Accepted - Medication Discharge Medications: Ambulatory Orders Naloxone HCl [Narcan] 4 mg NS ASDIR PRN 12/03/18 - Diagnosis (1) Opioid dependence with withdrawal Current Visit: Yes Status: Chronic (2) Back pain Current Visit: No Status: Acute Qualifiers: Back pain location: low back pain Back pain laterality: midline (3) Anemia Current Visit: No Status: Chronic (4) Cannabis dependence, uncomplicated Current Visit: Yes Status: Chronic (5) Cocaine dependence, uncomplicated Current Visit: Yes Status: Chronic (6) History of positive PPD Current Visit: Yes Status: Chronic (7) History of Hodgkin's lymphoma Current Visit: Yes Status: Chronic - AMA Did Patient Leave Against Medical Advice: No ([facility])
[2019-03-14 10:11] VITALS: BP 110/74; PULSE 82
[2019-03-14] MEDS: PRENATAL VITAMINS W/ FOLIC ACID TABLET (FP) PO SCH (12:03)
== END 2019-03-14 11:10 | disposition home or self-care (01) | DRG 773 ==
LOC: YASAS 14:58 → Y6N 20:26
PROVIDERS: ADMIT Surgery; ATTEND Surgery
PROC: HZ2ZZZZ Detoxification Services for Substance Abuse Treatment (ICD-10-PCS; principal; 2019-03-11)
DX: F11.23 Opioid dependence with withdrawal (principal); F14.20 Cocaine dependence, uncomplicated; F12.20 Cannabis dependence, uncomplicated; M54.9 Dorsalgia, unspecified; R76.11 Nonspecific reaction to tuberculin skin test without active tuberculosis; Z85.71 Personal history of Hodgkin lymphoma
CPT/HCPCS: 36415; 80053; 85027; 86593; J0735